=== PATIENT | male | born 1955 | race Caucasian/White ===

== ENCOUNTER → 2021-02-04 | Outpatient (CLI) | payer MEDICARE ==
--- NOTE | 2021-02-07 06:14 | PE ---
EXAMINATION TYPE: PET CT fusion skull to thigh DATE OF EXAM: 02/04/2021 COMPARISON: NONE HISTORY: Left lung mass. TECHNIQUE: Following the intravenous administration of 10.02 mCi of F-18 FDG, whole body images are performed from the skull base to the midthigh. Images are reviewed on the computer in the coronal, a xial, and sagittal planes. Reconstructed rotating images are created on independent workstation and reviewed on the computer. A localization and attenuation correction CT is performed in conjunction with the PET scan. Blood glucose level equals 90. SCAN: Initial Scan FINDINGS: SKULL BASE AND NECK: No areas of abnormal hypermetabolic uptake. CHEST, MEDIASTINUM, AND HILAR REGION: There is background fairly moderate underlying emphysematous ch be. Corresponding to patient history there is lateral left mid lung hypermetabolic mass measuring 4 .8 x 3.4 cm, max SUV is 13.05 on axial image 105. There is suspicious slightly hypermetabolic just under 1 cm prevascular lymph node axial image 99, ma x SUV is 4.36. There is suspicious slightly hypermetabolic 2.3 x 1.0 cm AP window lymph node axial image 95, max SUV is 3.69. ABDOMEN AND PELVIS: No additional areas of abnormal hypermetabolic uptake. No adrenal masses. Normal excretion. OSSEOUS STRUCTURES: No areas of abnormal hypermetabolic uptake. OTHER CT: Cardiomegaly is present with fairly severe coronary artery calcification. Small to moderate size hiatal hernia containing fat and portion of stomach along with prominent but subcentimeter amet abolic lymph node. Liver is diffusely low-density consistent with fatty infiltration. Occasional calcifications scattere d throughout the spleen consistent with product of old granulomatous disease. Moderate calcified plaq ue of abdominal aorta extends into branch vessels. Sigmoid colonic diverticulosis. Small fat-containi ng inguinal hernias bilaterally. Wptz-ud-[id number] disc space narrowing with vacuum disc phenomenon L5 -S1 level. IMPRESSION: Abnormal hypermetabolic uptake consistent with malignancy in the lateral 4.8 cm left mid lung mass. Suspicious prevascular and AP window lymph node noted. No distal metastatic disease.
== END | disposition home or self-care (01) ==
LOC: RADPETMAIN 13:54
PROVIDERS: ATTEND Internal Medicine Critical Care Medicine
DX: R91.8 Other nonspecific abnormal finding of lung field (principal)
CPT/HCPCS: 78815; A9552

== ENCOUNTER 2021-03-04 10:53 | Observation (INO) | payer MEDICARE ==
[2021-02-28 15:46] VITALS: BMI 32.6
[~2021-03-04 10:53] MED LIST: ALBUTEROL NEB (CONC) 2.5 MG/0.5 ML INHALATION ONE; ATROPINE SULFATE 0.4 MG/ML 1 ML VIAL IM ONE; LIDOCAINE 2% (PF) 20 MG/ML 5 ML VIAL INHALATION ONE; LIDOCAINE VISCOUS 300 MG/15 ML CUP MUCOUS MEM ONE
[2021-03-04 12:26] LABS: Glucose,Whole Blood 113 mg/dL (75-99)
[2021-03-04] MEDS: SODIUM CHLORIDE 0.9% 1,000 ML IV SCH ×4 (12:26→23:15)
--- NOTE | 2021-03-04 13:18 | CT ---
EXAMINATION TYPE: CT Chest asad Salinas Protocol DATE OF EXAM: 03/04/2021 COMPARISON: Head CT 10/07/2020 HISTORY: bronchial navigation CT DLP: 651 mGycm Automated exposure control for dose reduction was used. FINDINGS: Limited exam performed earlier navigational bronchoscopy. Previously described mediastinal lymph node measuring a short axis of 1 cm stable. Large left upper l obe lung mass measuring 4.8 x 3.4 cm stable. Additional small lymph nodes in the mediastinum. 1.7 cm left suprahilar lymph node suspected. There is diffuse emphysematous changes. Coarsened interstitial markings at the lung bases suggest a d egree of chronic interstitial lung disease. 1 mm subpleural nodule left lower lobe axial image 54 2 s maller characterize. There is a small hiatal hernia. Hypertrophic and degenerative changes of the spine. Coronary artery c alcifications noted. Atherosclerotic change aorta. IMPRESSION: LARGE LEFT UPPER LOBE LUNG MASS WITH BACKGROUND OF DIFFUSE COPD. MEDIASTINAL ADENOPATHY SIMILAR TO RE CENT PET SCAN.
[2021-03-04] MEDS ORDERED: LABETALOL 5 MG/ML VIAL MDV ONE (13:37)
[2021-03-04] MEDS ORDERED: SUCCINYLCHOLINE CHLORIDE 100 MG/5 ML SYR IV ONE (13:37)
[2021-03-04] MEDS ORDERED: ESMOLOL 100 MG/10 ML VIAL ONE (13:37)
[2021-03-04] MEDS ORDERED: METOPROLOL TARTRATE 5 MG/5 ML VIAL IVP ONE (13:37)
[2021-03-04] MEDS ORDERED: PROPOFOL 10 MG/ML 20 ML VIAL IV ONE (13:37)
[2021-03-04] MEDS ORDERED: SODIUM CHLORIDE 0.9% 500 ML 500 ML IV ONE (14:53)
[2021-03-04] MEDS ORDERED: SODIUM CHLORIDE 0.9% 1,000 ML IV ONE (15:20)
[2021-03-04] MEDS ORDERED: ONDANSETRON 4 MG/2 ML VIAL IVP ONE (15:45)
--- NOTE | 2021-03-04 15:50 | XR ---
EXAMINATION TYPE: XR chest 1V portable DATE OF EXAM: 03/04/2021 COMPARISON: CT chest same date HISTORY: Post left upper lobe biopsy TECHNIQUE: Single frontal view of the chest is obtained. FINDINGS: There is an mass at the left lower lobe with surrounding peritumoral change/hemorrhage fro m recent biopsy. No definite pneumothorax is seen. Mild atelectasis or pneumonitis at the right middl e lobe. No pleural effusion or pneumothorax on the right side. Heart Size is within normal limits. Ov erlying leads. IMPRESSION: 1. Recently biopsied mass at the lingula with surrounding postbiopsy changes suggestive of mild hemor rhage. No definite pneumothorax. 2. Mild atelectasis or pneumonitis at the right middle lobe.
[2021-03-04] MEDS ORDERED: SOTALOL 80 MG TAB PO STA (16:10)
--- NOTE | 2021-03-04 17:42 | PCN ---
PROCEDURE NOTE PULMONARY/CRITICAL CARE PROCEDURE NOTE: PROCEDURE PERFORMED: Electromagnetic navigational bronchoscopy. PREOP DIAGNOSIS: Left upper lobe mass. POSTOP DIAGNOSIS: Left upper lobe mass. OPERATORS: Dr. Park and Dr. Salinas. There was informed consent and universal timeout. ANESTHESIA: Provided general anesthesia. The planning CT scan was studied. Shanita Muniz, the [employer] sales representative was here during the procedure. PROCEDURE DETAILS: After the patient was adequately sedated and anesthetized, the bronchoscope was inserted through the endobronchial tube. There was topicalization of the airways. The right lung was evaluated first. Right upper lobe and its 3 segments, right middle lobe and its 2 segments, right lower lobe and its 5 segments all appeared relatively normal although there was a small mucosal lesion in the area right before the entrance of the right lower lobe that seemed suspicious and was somewhat vascular. We brushed this area. Next, the left side was evaluated. The left upper lobe and its 2 segments, the lingula and its 2 segments and the left lower lobe and its 4 segments were all found to be relatively normal. Next, we used the navigational bronchoscope to do some transbronchial biopsies in the area of the right upper lobe. We had reasonable localization. We did about 6 to 8 biopsies. Next, we used the needle to sample the same area. We got at least 1 sample from that area. Finally, we did BAL in that area. The patient tolerated the procedure well. There was minimal bleeding. After the procedure, the patient developed tachycardia. Anesthesia was treating the patient with esmolol and Dr. Venegas the anesthesiologist was actually called in to evaluate the patient. I did speak to the patient's family and did mention to them that it was difficult getting adequate localization on the lesion. The patient tolerated the procedure well until the very at which time he developed tachycardia. They may likely watch him over in Phase 1. Additional recommendations and suggestions are forthcoming. Follow up in my office probably in a week to 10 days or so. MMODL / VIDHIN: [id number] / MTDD
[2021-03-04 18:07] LABS: Glucose,Whole Blood 153 mg/dL (75-99)
[2021-03-04] MEDS ORDERED: DILTIAZEM DRIP BOLUS FROM BAG 1 MG SOLN IV ONE (18:37)
[2021-03-04] MEDS ORDERED: NALOXONE 0.4 MG/ML 1 ML VIAL IV PRN (18:44)
[2021-03-04] MEDS ORDERED: DILTIAZEM 125 MG in SODIUM CHLORIDE 0.9% 100 ML IV SCH (18:45)
[2021-03-04] MEDS ORDERED: ACETAMINOPHEN TAB 325 MG TAB PO PRN (18:46)
[2021-03-04] MEDS ORDERED: ONDANSETRON 4 MG/2 ML VIAL IVP PRN (18:46)
[2021-03-04] MEDS ORDERED: NICOTINE POLACRILEX 2 MG GUM BUCCAL PRN (18:46)
--- NOTE | 2021-03-04 18:49 | P.HPIM ---
History of Present Illness H&P Date: 03/04/21 Past Medical History Past Medical History: Atrial Fibrillation, COPD, Diabetes Mellitus, Hypertension Additional Past Medical History / Comment(s): spot on rt lung,low sodium,having stress test on 03-01-21 History of Any Multi-Drug Resistant Organisms: None Reported Past Surgical History: Hernia Repair Additional Past Surgical History / Comment(s): hernia x2,fatty tumor removed abdomen, cardiac stent X 2, Past Anesthesia/Blood Transfusion Reactions: No Reported Reaction Smoking Status: Current every day smoker (1/2 ppd) Past Alcohol Use History: Daily (2 beers daily ) Additional History: no cane or walker at home. no oxygen - Past Family History Mother Family Medical History: Cancer Sister(s) Family Medical History: Cancer Medications and Allergies Home Medications Medication Instructions Recorded Confirmed Type Apixaban [Eliquis] 5 mg PO BID 02/28/21 02/28/21 History Clopidogrel [Plavix] 75 mg PO DAILY 02/28/21 03/04/21 History Evolocumab [Repatha Syringe] 140 mg SQ Q14D 02/28/21 02/28/21 History Famotidine 20 mg PO DAILY 02/28/21 02/28/21 History Furosemide [Lasix] 40 mg PO DAILY 02/28/21 02/28/21 History Losartan Potassium [Cozaar] 100 mg PO QAM 02/28/21 02/28/21 History Potassium Chloride [Klor-Con 20] 20 meq PO DAILY 02/28/21 02/28/21 History Rosuvastatin Calcium 40 mg PO DAILY 02/28/21 02/28/21 History Sotalol HCl [Sotalol AF] 80 mg PO BID 02/28/21 02/28/21 History glipiZIDE XL [Glucotrol Xl] 10 mg PO DAILY 02/28/21 02/28/21 History hydrALAZINE HCL [Apresoline] 100 mg PO BID 02/28/21 02/28/21 History Allergies Allergy/AdvReac Type Severity Reaction Status Date / Time No Known Allergies Allergy Verified 02/28/21 15:27 Physical Exam Osteopathic Statement: *. No significant issues noted on an osteopathic structural exam other than those noted in the History and Physical/Consult. Vitals: Vital Signs Temp Pulse Pulse Resp BP Pulse Ox 03/04/21 18:25 147 H 17 138/86 95 03/04/21 18:00 158 H 17 154/84 96 03/04/21 17:51 151 H 17 120/88 89 L 03/04/21 17:31 138 H 18 133/93 95 03/04/21 17:17 126 H 18 145/89 95 03/04/21 17:02 128 H 18 131/79 95 03/04/21 16:32 127 H 20 146/71 94 L 03/04/21 16:15 139 H 20 151/78 94 L 03/04/21 16:02 139 H 20 139/86 92 L 03/04/21 15:46 133 H 20 121/72 92 L 03/04/21 15:32 119 H 20 147/73 92 L 03/04/21 15:17 120 H 20 143/63 94 L 03/04/21 15:06 98 F 120 H 20 140/66 94 L 03/04/21 12:03 98.6 F 65 16 185/86 97 Intake and Output 03/04/21 03/04/21 03/04/21 06:59 14:59 22:59 Intake Total 300 75 Output Total 200 Balance 300 -125 Intake: IV 300 75 Output: Urine 200 Other: Weight 91.5 kg Results Labs: Abnormal Lab Results - Last 24 Hours (Table) 03/04/21 03/04/21 Range/Units 12:24 17:56 POC Glucose (mg/dL) 113 H 153 H (75-99) mg/dL
[2021-03-04] MEDS ORDERED: ALBUTEROL NEBULIZED 2.5 MG/3 ML INHALATION PRN (18:52)
[2021-03-04] MEDS ORDERED: MELATONIN 5 MG TABLET PO PRN (18:57)
[2021-03-04] MEDS ORDERED: HYDROcodone/APAP 5-325MG 1 EACH TAB PO PRN (18:57)
[2021-03-04 20:00] LABS: ALT 19 U/L (4-49); AST 35 U/L (17-59); African American GFR (CKD) >90 (>60 ml/min/1.73 sqM); Albumin 3.6 g/dL (3.5-5.0); Alkaline Phosphatase 106 U/L (38-126); Anion Gap 9 mmol/L; Blood Urea Nitrogen 10 mg/dL (9-20); Carbon Dioxide 20 mmol/L (22-30); Chloride 104 mmol/L (98-107); Glucose 180 mg/dL (74-99); Magnesium 1.6 mg/dL (1.6-2.3); Non-African American GFR(CKD) >90 (>60 ml/min/1.73 sqM); Phosphorus 3.2 mg/dL (2.5-4.5); Sodium 133 mmol/L (137-145); Total Bilirubin 0.8 mg/dL (0.2-1.3); Total Protein 6.4 g/dL (6.3-8.2)
[2021-03-04 20:04] LABS: Potassium 5.2 mmol/L (3.5-5.1)
[2021-03-04 20:18] LABS: Basophils # (A) 0.1 k/uL (0-0.2); Basophils % (A) 0 %; Eosinophils # (A) 0.1 k/uL (0-0.7); Eosinophils % (A) 1 %; HGB 16.2 gm/dL (13.0-17.5); Lymphocytes # (A) 1.5 k/uL (1.0-4.8); Lymphocytes % (A) 9 %; MCH 31.9 pg (25.0-35.0); MCHC 33.8 g/dL (31.0-37.0); MCV 94.3 fL (80.0-100.0); Mean Platelet Volume 6.7; Monocytes # (A) 0.9 k/uL (0-1.0); Monocytes % (A) 6 %; Neutrophils # (A) 12.9 k/uL (1.3-7.7); Neutrophils % (A) 83 %; Platelet Count 249 k/uL (150-450); RDW 12.5 % (11.5-15.5); WBC 15.5 k/uL (3.8-10.6)
--- NOTE | 2021-03-04 20:18 | P.HPIM ---
History of Present Illness H&P Date: 03/04/21 Chief Complaint: a fib with RVR Patient is a 65 yo CM wtih a hx of COPD, ongoing tobacco abuse, CHF, CAD with hx of 2 stent and A fib anticoagulated with eliquis who presetend for outpatinet navagational bronch due to left lower lobe mass. During the procedure he went into A fib with RVR and was given labetalol, esmolol, and lopressor by anesthesia. He contiued to have A fib wtih HR 130-150s and we were asked by Dr. Park to admit the patient. Patient seen and examined at bedside. He states that he has had A fib for the last 4 years, well controlled he follows with [facility]. He did not take his sotalol this morning preoperatively. He is having a cough which is worsened post bronch, horse voice which is new, and mildly worsening of his shortness of breath after his bronch. He denies chest pain, palpitations, nausea, dizziness. Pertinent positives and negatives as discussed in HPI, a complete review of systems was performed and all other systems are negative. General: non toxic, no distress, appears at stated age Derm: warm, dry Head: atraumatic, normocephalic, symmetric Eyes: EOMI, no lid lag, anicteric sclera, pupils equal round reactive to light ENT: Nose and ears atraumatic, no thrush, no pharyngeal erythema Neck: No thyromegaly, no cervical lymphadenopathy, trachea midline, supple Mouth: no lip lesion, mucus membranes moist, hoarse voice Cardiovascular: S1S2 tachy, no murmur, positive posterior tibial pulse bilateral , no edema, capillary refill less than 2 seconds Lungs: course bs bilateral without wheeze, no ronchi, no rales, no wheeze, no accessory muscle use Abdominal: soft, nontender to palpation, no guarding, no appreciable organomegaly, normal bowel sounds Ext: no gross muscle atrophy, muscle strength muscle strength 5 out of 5 in all 4 extremities, no contractures Neuro: CN II-XI grossly intact, light touch intact all 4 extremities, finger to nose within normal limits, Psych: Alert, oriented, appropriate affect A fib wtih RVR - cardizem 5 mg IVP and then gtt - tele - stat CBC, BMP, mg - consult cardio - on eliquis at home Left lung mass s/p bronch with biopsy with possible hemorhage - anticipate typical expectation - consult pulm regarding clearance to resume eliquis CHF, compensated, unknown type - cozaar, lasix - follow strict I and O COPD without exacerbation with ongoing tobacco absue - prn bornchodilators - smoking cessation encouraged - nicotine gum DM 2 on orals - hold orals - follow BS - SSI The patient is placed in observation with an anticipated less than 2 midnight stay for evaluation of A fib with RVR. Surrogate decision-maker: Tahir CODE STATUS:full DVT prophylaxis: scds Discussed with: patient, nursing Anticipated discharge date: in AM Anticipated discharge place: home A total of 55 minutes was spent on the care of this complex patient more than 50% of the time was spent in counseling and care coordination. Past Medical History Past Medical History: Atrial Fibrillation, COPD, Diabetes Mellitus, Hypertension Additional Past Medical History / Comment(s): spot on rt lung,low sodium,having stress test on 03-01-21 History of Any Multi-Drug Resistant Organisms: None Reported Past Surgical History: Hernia Repair Additional Past Surgical History / Comment(s): hernia x2,fatty tumor removed abdomen, cardiac stent X 2, Past Anesthesia/Blood Transfusion Reactions: No Reported Reaction Smoking Status: Current every day smoker (1/2 ppd) Past Alcohol Use History: Daily (2 beers daily ) - Past Family History Mother Family Medical History: Cancer Sister(s) Family Medical History: Cancer Medications and Allergies Home Medications Medication Instructions Recorded Confirmed Type Apixaban [Eliquis] 5 mg PO BID 02/28/21 02/28/21 History Clopidogrel [Plavix] 75 mg PO DAILY 02/28/21 03/04/21 History Evolocumab [Repatha Syringe] 140 mg SQ Q14D 02/28/21 02/28/21 History Famotidine 20 mg PO DAILY 02/28/21 02/28/21 History Furosemide [Lasix] 40 mg PO DAILY 02/28/21 02/28/21 History Losartan Potassium [Cozaar] 100 mg PO QAM 02/28/21 02/28/21 History Potassium Chloride [Klor-Con 20] 20 meq PO DAILY 02/28/21 02/28/21 History Rosuvastatin Calcium 40 mg PO DAILY 02/28/21 02/28/21 History Sotalol HCl [Sotalol AF] 80 mg PO BID 02/28/21 02/28/21 History glipiZIDE XL [Glucotrol Xl] 10 mg PO DAILY 02/28/21 02/28/21 History hydrALAZINE HCL [Apresoline] 100 mg PO BID 02/28/21 02/28/21 History Allergies Allergy/AdvReac Type Severity Reaction Status Date / Time No Known Allergies Allergy Verified 02/28/21 15:27 Physical Exam Osteopathic Statement: *. No significant issues noted on an osteopathic struct ural exam other than those noted in the History and Physical/Consult. Vitals: Vital Signs Temp Pulse Pulse Resp BP Pulse Ox 03/04/21 18:55 142 H 17 144/95 95 03/04/21 18:25 147 H 17 138/86 95 03/04/21 18:00 158 H 17 154/84 96 03/04/21 17:51 151 H 17 120/88 89 L 03/04/21 17:31 138 H 18 133/93 95 03/04/21 17:17 126 H 18 145/89 95 03/04/21 17:02 128 H 18 131/79 95 03/04/21 16:32 127 H 20 146/71 94 L 03/04/21 16:15 139 H 20 151/78 94 L 03/04/21 16:02 139 H 20 139/86 92 L 03/04/21 15:46 133 H 20 121/72 92 L 03/04/21 15:32 119 H 20 147/73 92 L 03/04/21 15:17 120 H 20 143/63 94 L 03/04/21 15:06 98 F 120 H 20 140/66 94 L 03/04/21 12:03 98.6 F 65 16 185/86 97 Intake and Output 03/04/21 03/04/21 03/04/21 06:59 14:59 22:59 Intake Total 300 75 Output Total 200 Balance 300 -125 Intake: IV 300 75 Output: Urine 200 Other: Weight 91.5 kg Results Labs: Abnormal Lab Results - Last 24 Hours (Table) 03/04/21 03/04/21 Range/Units 12:24 17:56 POC Glucose (mg/dL) 113 H 153 H (75-99) mg/dL
[2021-03-04 20:33] LABS: Glucose,Whole Blood 159 mg/dL (75-99)
[2021-03-04] MEDS: BENZOCAINE/MENTHOL LOZENG 1 EACH LOZENGE MUCOUS MEM PRN (20:39)
[2021-03-04] MEDS: hydrALAZINE HCL 50 MG TAB PO SCH (20:40)
[2021-03-04] MEDS: INSULIN ASPART (NovoLOG) 100 UNIT/ML VIAL SQ SCH (20:42)
[2021-03-04] MEDS: DILTIAZEM 125 MG in SODIUM CHLORIDE 0.9% 100 ML IV SCH (21:11)
[2021-03-05] MEDS: SOTALOL 80 MG TAB PO SCH ×3 (00:28→20:24)
[2021-03-05] MEDS: SODIUM CHLORIDE 0.9% 1,000 ML IV SCH ×4 (04:15→20:25)
[2021-03-05 06:27] LABS: Glucose,Whole Blood 154 mg/dL (75-99)
[2021-03-05] MEDS: INSULIN ASPART (NovoLOG) 100 UNIT/ML VIAL SQ SCH ×4 (06:34→20:24)
[2021-03-05] MEDS: BENZOCAINE/MENTHOL LOZENG 1 EACH LOZENGE MUCOUS MEM PRN ×4 (06:43→23:16)
[2021-03-05 07:39] LABS: HCT 42.4 % (39.0-53.0); HGB 14.6 gm/dL (13.0-17.5); MCH 32.1 pg (25.0-35.0); MCHC 34.5 g/dL (31.0-37.0); Mean Platelet Volume 6.8; Platelet Count 242 k/uL (150-450); RBC 4.56 m/uL (4.30-5.90); RDW 12.5 % (11.5-15.5); WBC 11.3 k/uL (3.8-10.6)
[2021-03-05 07:53] LABS: African American GFR (CKD) >90 (>60 ml/min/1.73 sqM); Anion Gap 5 mmol/L; Blood Urea Nitrogen 8 mg/dL (9-20); Calcium 8.7 mg/dL (8.4-10.2); Carbon Dioxide 24 mmol/L (22-30); Chloride 105 mmol/L (98-107); Glucose 156 mg/dL (74-99); Non-African American GFR(CKD) >90 (>60 ml/min/1.73 sqM); Potassium 4.7 mmol/L (3.5-5.1); Sodium 134 mmol/L (137-145)
[2021-03-05] MEDS ORDERED: POTASSIUM CHLORIDE ER 20 MEQ TAB.ER PO SCH (09:00)
[2021-03-05] MEDS: APIXABAN 5 MG TAB PO SCH ×2 (09:55→20:24)
[2021-03-05] MEDS: ATORVASTATIN 80 MG TAB PO SCH (09:55)
[2021-03-05] MEDS: FAMOTIDINE 20 MG TAB PO SCH (09:56)
[2021-03-05] MEDS: FUROSEMIDE 40 MG TAB PO SCH (09:56)
[2021-03-05] MEDS: LOSARTAN 50 MG TAB PO SCH (09:56)
[2021-03-05] MEDS: hydrALAZINE HCL 50 MG TAB PO SCH ×2 (09:56→20:24)
[2021-03-05] MEDS: DILTIAZEM 125 MG in SODIUM CHLORIDE 0.9% 100 ML IV SCH (10:22)
--- NOTE | 2021-03-05 10:59 | P.CNPUL ---
History of Present Illness Consult date: 03/05/21 Requesting physician: Lexy Ruiz Reason for consult: abnormal CXR/CT Chief complaint: Rapid heart rate History of present illness: This is a very pleasant 65-year-old gentleman who follows with Dr. Carnes as his primary care provider. He has a history of atrial fibrillation anticoagulated w man Eliquis, coronary disease with previous stent placement, diabetes berg, congestive heart failure, history of alcoholism, chronic obstructive pulmonary disease, chronic and ongoing tobacco dependence of at least 1 pack per day for 50 years. He had initially been in [facility] with chest pain and palpitations. He was found to be in atrial fibrillation with a rapid ventricular response at that time. He was scheduled to undergo ablation that same week. However his chest x-ray had revealed a mass in the left upper lung suspicious for cancer. He was seen in our office and subsequently set up for navigational bronchoscopy which was performed electively here yesterday. Just at the end of the procedure the patient did develop atrial fibrillation with rapid ventricular response requiring beta blockers and subsequent Cardizem drip currently at 10 mg per hour. He was admitted for the same. He is seen today in follow-up on the selective care unit. He is awake and alert in no acute distress. Maintaining O2 saturations in the 90s on room air. He remains in atrial fibrillation however his heart rate is presently controlled in the 60s and 70s. No chest pain. No palpitations lightheadedness or dizziness. No worsening shortness of breath cough or congestion. No hemoptysis. He did have a stress test earlier this week at an outside facility that was reported as nega tive for acute ischemia. Chest x-ray reveals in the left lung lingular area some mild hemorrhage noted around biopsy sites. No pneumothorax. Mild atelectasis in the right lung. Bronchial cultures pending. Pathology pending. White count 11.3. Hemoglobin 14.6. Sodium 134. Potassium 4.7. Creatinine 0.69. Troponin 0.014. 0.031. Currently on a Cardizem drip at 5 mg per hour. Remains on Eliquis. Resumed on sotalol. Review of Systems REVIEW OF SYSTEMS: CONSTITUTIONAL: Denies any recent significant weight loss or weight gain. EYES: Denies change in vision. EARS, NOSE, MOUTH, THROAT: Denies headaches, denies sore throat. CARDIOVASCULAR: Denies chest pain, palpitations or syncopal episodes. RESPIRATORY: Denies shortness of breath, cough, congestion or hemoptysis. GASTROINTESTINAL: Denies change in appetite, denies abdominal pain GENITOURINARY: Denies hematuria, denies infections. MUSKULOSKELETAL: Denies pain, denies swelling. INTEGUMENTARY: Denies rash, denies eczema. NEUROLOGICAL: Denies recent memory loss, no recent seizure activity. PSYCHIATRIC: Denies anxiety, denies depression. HEMATOLOGIC/LYMPHATIC: Denies anemia, denies enlarged lymph nodes. Past Medical History Past Medical History: Atrial Fibrillation, COPD, Diabetes Mellitus, Hypertension Additional Past Medical History / Comment(s): Spot on right lung, stress test scheduled for 03-01-21 History of Any Multi-Drug Resistant Organisms: None Reported Past Surgical History: Hernia Repair Additional Past Surgical History / Comment(s): hernia x2,fatty tumor removed abdomen, cardiac stent X 2, Past Anesthesia/Blood Transfusion Reactions: No Reported Reaction Past Psychological History: No Psychological Hx Reported Smoking Status: Current every day smoker Past Alcohol Use History: Daily Additional Past Alcohol Use History / Comment(s): started smoking at age 16, approx. 1ppd Past Drug Use History: None Reported - Past Family History Mother Family Medical History: Cancer Sister(s) Family Medical History: Cancer Medications and Allergies Home Medications Medication Instructions Recorded Confirmed Type Apixaban [Eliquis] 5 mg PO BID 02/28/21 02/28/21 History Clopidogrel [Plavix] 75 mg PO DAILY 02/28/21 03/04/21 History Evolocumab [Repatha Syringe] 140 mg SQ Q14D 02/28/21 02/28/21 History Famotidine 20 mg PO DAILY 02/28/21 02/28/21 History Furosemide [Lasix] 40 mg PO DAILY 02/28/21 02/28/21 History Losartan Potassium [Cozaar] 100 mg PO QAM 02/28/21 02/28/21 History Potassium Chloride [Klor-Con 20] 20 meq PO DAILY 02/28/21 02/28/21 History Rosuvastatin Calcium 40 mg PO DAILY 02/28/21 02/28/21 History Sotalol HCl [Sotalol AF] 80 mg PO BID 02/28/21 02/28/21 History glipiZIDE XL [Glucotrol Xl] 10 mg PO DAILY 02/28/21 02/28/21 History hydrALAZINE HCL [Apresoline] 100 mg PO BID 02/28/21 02/28/21 History Allergies Allergy/AdvReac Type Severity Reaction Status Date / Time No Known Allergies Allergy Verified 02/28/21 15:27 Physical Exam Vitals: Vital Signs Temp Pulse Pulse Pulse Resp BP Pulse Ox 03/05/21 09:23 95 03/05/21 08:00 97.6 F 111 H 19 111/65 95 03/05/21 04:00 98.4 F 73 16 112/59 96 03/05/21 00:00 98.4 F 84 16 112/55 98 03/04/21 20:00 98.5 F 124 H 16 140/88 97 03/04/21 18:55 142 H 17 144/95 95 03/04/21 18:25 147 H 17 138/86 95 03/04/21 18:00 158 H 17 154/84 96 03/04/21 17:51 151 H 17 120/88 89 L 03/04/21 17:31 138 H 18 133/93 95 03/04/21 17:17 126 H 18 145/89 95 03/04/21 17:02 128 H 18 131/79 95 03/04/21 16:32 127 H 20 146/71 94 L 03/04/21 16:15 139 H 20 151/78 94 L 03/04/21 16:02 139 H 20 139/86 92 L 03/04/21 15:46 133 H 20 121/72 92 L 03/04/21 15:32 119 H 20 147/73 92 L 03/04/21 15:17 120 H 20 143/63 94 L 03/04/21 15:06 98 F 120 H 20 140/66 94 L 03/04/21 12:03 98.6 F 65 16 185/86 97 Intake and Output 03/04/21 03/05/21 03/05/21 22:59 06:59 14:59 Intake Total 75 365 Output Total 200 1160 Balance -125 -1160 365 Intake: IV 75 Intake, IV Titration 125 Amount Diltiazem 125 mg In 125 Sodium Chloride 0.9% 100 ml @ 10 MG/HR 10 mls/hr IV .[id number] [facility] Rx#: [id number] Oral 240 Output: Urine 200 1160 Other: Voiding Method Urinal Urinal Urinal # Voids 1 1 Weight 92 kg 92 kg GENERAL EXAM: Alert,very pleasant 65-year-old gentleman, on room air, comfortable in no apparent distress. HEAD: Normocephalic. EYES: Normal reaction of pupils, equal size. NOSE: Clear with pink turbinates. THROAT: No erythema or exudates. NECK: No masses, no JVD. CHEST: No chest wall deformity. LUNGS: Equal air entry with no crackles, wheeze, rhonchi or dullness. CVS: S1 and S2 normal with no audible murmur, irregular rhythm. ABDOMEN: No hepatosplenomegaly, normal bowel sounds, no guarding or rigidity. SPINE: No scoliosis or deformity SKIN: No rashes CENTRAL NERVOUS SYSTEM: No focal deficits, tone is normal in all 4 extremities. EXTREMITIES: There is no peripheral edema. No clubbing, no cyanosis. Peripheral pulses are intact. Results - Laboratory Findings CBC and BMP: 03/05/21 06:30 03/05/21 06:30 Abnormal lab findings: Abnormal Labs 03/04/21 03/04/21 03/04/21 12:24 17:56 19:07 WBC 15.5 H Neutrophils # 12.9 H Sodium Potassium Carbon Dioxide BUN Glucose POC Glucose (mg/dL) 113 H 153 H 03/04/21 03/04/21 03/05/21 19:07 20:32 06:21 WBC Neutrophils # Sodium 133 L Potassium 5.2 H Carbon Dioxide 20 L BUN Glucose 180 H POC Glucose (mg/dL) 159 H 154 H 03/05/21 03/05/21 06:30 06:30 WBC 11.3 H Neutrophils # Sodium 134 L Potassium Carbon Dioxide BUN 8 L Glucose 156 H POC Glucose (mg/dL) - Diagnostic Findings Chest x-ray: image reviewed Assessment and Plan Assessment: 1 Atrial fibrillation with a rapid ventricular response currently on a Cardizem drip 2 History of atrial fibrillation, anticoagulated with Eliquis, maintained on sotalol. Being worked up for possible ablation in the outpatient setting 3 Left lung mass suspicious for neoplasm status post bronchoscopy with biopsies on 03/04/2021 4 History of coronary artery disease with previous stent placements. Recent stress testing at outside facility revealed negative for ischemia 5 History of congestive heart failure 6 Chronic and ongoing tobacco dependence 7 Chronic obstructive pulmonary disease 8 History of alcohol abuse 9 Diabetes mellitus Plan: The patient was seen and evaluated by Dr. Park Chest x-ray and labs reviewed Stable from the pulmonary standpoint Pathology pending Home once cleared by cardiology Keep scheduled appointment with his billet driller on 03/10/2021 Follow-up in our office in 1 week I, the cosigning physician, performed a history & physical examination of the patient. Lungs sounds crackles in the left lung base Maintaining good O2 saturations in the 90s on room air. I discussed the assessment and plan of care with my nurse practitioner, Viola Salinas. I attest to the above consultation as dictated by her. Time with Patient: Greater than 30
[2021-03-05 11:33] LABS: Glucose,Whole Blood 170 mg/dL (75-99)
--- NOTE | 2021-03-05 12:06 | P.CRDCN ---
History of Present Illness Consult date: 03/05/21 Consult reason: atrial fibrillation History of present illness: The patient is a 65-year-old male with extensive past medical history, who recently had an episode of atrial fibrillation with RVR after undergoing bronchoscopy. The patient had a bronchoscopy with biopsy performed by Dr. Valenzuela. During recovery the patient went into atrial fibrillation with RVR with heart rates in the 150s to 160s. He became hypotensive and did not convert with IV beta grace. He was subsequently admitted to the floor on a Cardizem drip for further monitoring. The patient was interviewed and examined sitting comfortably on the side of his bed. The patient states he did not take his sotalol the morning of his procedure as it often makes him nauseous if he takes it without food. He states his sotalol was prescribed by a yeast tender in [place], however he recently started seeing Dr. Dash at [facility]. He states he recently underwent stress testing in order to be cleared for his bronchoscopy. To his knowledge it was unremarkable. He states he is feeling well currently in his room. No chest pain or chest pressure. No palpitations, dizziness, or lightheadedness. He has been ambulating to and from the bathroom. DIAGNOSTICS: Chest x-ray shows mild hemorrhage around biopsied site. No mass noted in the left lower lobe. Mild atelectasis in the right middle lobe EKG shows A. fib with RVR Telemetry overnight shows atrial fibrillation with heart rates in the mid 90s Vital signs: Blood pressure 111/65, heart rate 111, respiratory rate 19, temperature 97.6F, SpO2 95% on room air PAST MEDICAL HISTORY: Diabetes mellitus, hypertension, paroxysmal atrial fibrillation, dyslipidemia, coronary artery disease, current smoker, COPD REVIEW OF SYSTEMS: No fever or chills. No cough or expectoration. No diaphoresis. Patient denies headache, dizziness, blurred vision, double vision. Patient denies any stomach discomfort. No nausea, vomiting. No hematochezia. No hematemesis. Denies any black stools or blood in his stools. Denies dysuria or hematuria. No muscle weakness or numbness. Negative for shortness of breath. Negative for chest pain. Negative for palpitations PHYSICAL EXAMINATION: This is a 65-year-old male in no apparent distress at the time of my examination. HEENT: Head is atraumatic, normocephalic. Pupils are equal, round. Sclerae anicteric. Conjunctivae are clear. Mucous membranes of the mouth are moist. Neck is supple. There is no jugular venous distention. No carotid bruit is heard. CHEST EXAMINATION: Lungs are diminished to auscultation. No chest wall tenderness is noted on palpation or with deep breathing. HEART EXAMINATION: Irregular rate and rhythm. S1, S2 heard. No murmurs, gallops or rub. ABDOMEN: Soft, nontender. Bowel sounds are heard. No organomegaly noted. EXTREMITIES: 2+ peripheral pulses with no evidence of peripheral edema and no calf tenderness noted. NEUROLOGIC EXAMINATION: Patient is awake, alert and oriented x3. FINAL ASSESSMENT AND PLAN: Paroxysmal atrial fibrillation, episode of RVR status post bronchoscopy, currently rate controlled on by mouth sotalol and IV Cardizem Lung mass, status post bronchoscopy History of coronary artery disease, on Plavix Hypertension, controlled on current regimen Dyslipidemia, on statin Current smoker PLAN: Wean off of Cardizem drip Consider additional beta grace if needed for rate control Recommend ambulation and monitor for episodes of RVR Resume Eliquis when cleared by pulmonology Further recommendations based upon clinical course The patient has been seen and evaluated. Plan of care has been reviewed and agr eed upon by Dr Ponce. Past Medical History Past Medical History: Atrial Fibrillation, COPD, Diabetes Mellitus, Hypertension Additional Past Medical History / Comment(s): Spot on right lung, stress test scheduled for 03-01-21 History of Any Multi-Drug Resistant Organisms: None Reported Past Surgical History: Hernia Repair Additional Past Surgical History / Comment(s): hernia x2,fatty tumor removed abdomen, cardiac stent X 2, Past Anesthesia/Blood Transfusion Reactions: No Reported Reaction Past Psychological History: No Psychological Hx Reported Smoking Status: Current every day smoker Past Alcohol Use History: Daily Additional Past Alcohol Use History / Comment(s): started smoking at age 16, approx. 1ppd Past Drug Use History: None Reported - Past Family History Mother Family Medical History: Cancer Sister(s) Family Medical History: Cancer Medications and Allergies Home Medications Medication Instructions Recorded Confirmed Type Apixaban [Eliquis] 5 mg PO BID 02/28/21 02/28/21 History Clopidogrel [Plavix] 75 mg PO DAILY 02/28/21 03/04/21 History Evolocumab [Repatha Syringe] 140 mg SQ Q14D 02/28/21 02/28/21 History Famotidine 20 mg PO DAILY 02/28/21 02/28/21 History Furosemide [Lasix] 40 mg PO DAILY 02/28/21 02/28/21 History Losartan Potassium [Cozaar] 100 mg PO QAM 02/28/21 02/28/21 History Potassium Chloride [Klor-Con 20] 20 meq PO DAILY 02/28/21 02/28/21 History Rosuvastatin Calcium 40 mg PO DAILY 02/28/21 02/28/21 History Sotalol HCl [Sotalol AF] 80 mg PO BID 02/28/21 02/28/21 History glipiZIDE XL [Glucotrol Xl] 10 mg PO DAILY 02/28/21 02/28/21 History hydrALAZINE HCL [Apresoline] 100 mg PO BID 02/28/21 02/28/21 History Allergies Allergy/AdvReac Type Severity Reaction Status Date / Time No Known Allergies Allergy Verified 02/28/21 15:27 Physical Exam Vitals: Vital Signs Temp Pulse Pulse Pulse Resp BP Pulse Ox 03/05/21 09:23 95 03/05/21 08:00 97.6 F 111 H 19 111/65 95 03/05/21 04:00 98.4 F 73 16 112/59 96 03/05/21 00:00 98.4 F 84 16 112/55 98 03/04/21 20:00 98.5 F 124 H 16 140/88 97 03/04/21 18:55 142 H 17 144/95 95 03/04/21 18:25 147 H 17 138/86 95 03/04/21 18:00 158 H 17 154/84 96 03/04/21 17:51 151 H 17 120/88 89 L 03/04/21 17:31 138 H 18 133/93 95 03/04/21 17:17 126 H 18 145/89 95 03/04/21 17:02 128 H 18 131/79 95 03/04/21 16:32 127 H 20 146/71 94 L 03/04/21 16:15 139 H 20 151/78 94 L 03/04/21 16:02 139 H 20 139/86 92 L 03/04/21 15:46 133 H 20 121/72 92 L 03/04/21 15:32 119 H 20 147/73 92 L 03/04/21 15:17 120 H 20 143/63 94 L 03/04/21 15:06 98 F 120 H 20 140/66 94 L 03/04/21 12:03 98.6 F 65 16 185/86 97 Intake and Output 03/04/21 03/05/21 03/05/21 22:59 06:59 14:59 Intake Total 75 365 Output Total 200 1160 Balance -125 -1160 365 Intake: IV 75 Intake, IV Titration 125 Amount Diltiazem 125 mg In 125 Sodium Chloride 0.9% 100 ml @ 10 MG/HR 10 mls/hr IV .[id number] [facility] Rx#: [id number] Oral 240 Output: Urine 200 1160 Other: Voiding Method Urinal Urinal Urinal # Voids 1 1 Weight 92 kg 92 kg Results 03/05/21 06:30 03/05/21 06:30 Cardiac Enzymes 03/04/21 03/04/21 03/04/21 Range/Units 19:07 19:07 21:59 AST 35 (17-59) U/L Troponin I <0.012 0.014 (0.000-0.034) ng/mL 03/05/21 Range/Units 00:44 AST (17-59) U/L Troponin I 0.031 (0.000-0.034) ng/mL CBC 03/04/21 03/05/21 Range/Units 19:07 06:30 WBC 15.5 H 11.3 H (3.8-10.6) k/uL RBC 5.10 4.56 (4.30-5.90) m/uL Hgb 16.2 14.6 (13.0-17.5) gm/dL Hct 48.0 42.4 (39.0-53.0) % Plt Count 249 242 (150-450) k/uL Comprehensive Metabolic Panel 03/04/21 03/05/21 Range/Units 19:07 06:30 Sodium 133 L 134 L (137-145) mmol/L Potassium 5.2 H 4.7 (3.5-5.1) mmol/L Chloride 104 105 (98-107) mmol/L Carbon Dioxide 20 L 24 (22-30) mmol/L BUN 10 8 L (9-20) mg/dL Creatinine 0.66 0.69 (0.66-1.25) mg/dL Glucose 180 H 156 H (74-99) mg/dL Calcium 9.0 8.7 (8.4-10.2) mg/dL AST 35 (17-59) U/L ALT 19 (4-49) U/L Alkaline Phosphatase 106 (38-126) U/L Total Protein 6.4 (6.3-8.2) g/dL Albumin 3.6 (3.5-5.0) g/dL Current Medications Generic Name Dose Route Start Last Admin Trade Name Freq PRN Reason Stop Dose Admin Acetaminophen 650 mg 03/04/21 18:46 Acetaminophen Tab 325 Mg Tab PO Q6HR PRN Mild Pain or Fever > 100.5 Hydrocodone Bitart/Acetaminophen 1 each 03/04/21 18:57 Hydrocodone/Apap 5-325mg 1 Each Tab PO Q6HR PRN Pain Albuterol Sulfate 2.5 mg 03/04/21 18:52 Albuterol Nebulized 2.5 Mg/3 Ml INHALATION RT-QID PRN Shortness Of Breath Or Wheezing Apixaban 5 mg 03/05/21 09:00 03/05/21 09:55 Apixaban 5 Mg Tab PO 5 mg BID [facility]AC[facility] Administration Protocol Atorvastatin Calcium 80 mg 03/05/21 09:00 03/05/21 09:55 Atorvastatin 80 Mg Tab PO 80 mg DAILY [facility] Administration Benzocaine/Menthol 1 each 03/04/21 18:54 03/05/21 11:51 Benzocaine/Menthol Lozeng 1 Each Lozenge MUCOUS MEM 1 each Q4HR PRN Administration Sore Throat Famotidine 20 mg 03/05/21 09:00 03/05/21 09:56 Famotidine 20 Mg Tab PO 20 mg DAILY [facility]I Administration Furosemide 40 mg 03/05/21 09:00 03/05/21 09:56 Furosemide 40 Mg Tab PO 40 mg DAILY [facility]ELI Administration Hydralazine HCl 100 mg 03/04/21 21:00 03/05/21 09:56 Hydralazine Hcl 50 Mg Tab PO 100 mg BID ARACELI Administration Sodium Chloride 1,000 mls @ 20 mls/hr 03/03/21 06:00 03/05/21 04:15 Saline 0.9% IV 04/02/21 06:01 Not Given .Q24H [facility] Sodium Chloride 1,000 mls @ 20 mls/hr 03/04/21 06:00 03/05/21 04:16 Saline 0.9% IV 04/03/21 06:01 Not Given .Q24H [facility] Sodium Chloride 1,000 mls @ 75 mls/hr 03/04/21 19:00 03/04/21 23:15 Saline 0.9% IV 75 mls/hr .[id number] [facility] Administration Diltiazem HCl 125 mg/ Sodium 125 mls @ 5 mls/hr 03/04/21 20:37 03/05/21 10:22 Chloride IV 5 mg/hr .Q24H [facility] 5 mls/hr Administration Protocol 5 MG/HR Insulin Aspart 0 unit 03/04/21 21:00 03/05/21 06:34 Insulin Aspart (Novolog) 100 Unit/Ml Vial SQ Not Given ACHS [facility] Protocol Losartan Potassium 100 mg 03/05/21 09:00 03/05/21 09:56 Losartan 50 Mg Tab PO 100 mg QAM [facility] Administration Melatonin 5 mg 03/04/21 18:57 Melatonin 5 Mg Tablet PO HS PRN Insomnia Naloxone HCl 0.2 mg 03/04/21 18:44 Naloxone 0.4 Mg/Ml 1 Ml Vial IV Q2M PRN Opioid Reversal Nicotine Polacrilex 2 mg 03/04/21 18:46 Nicotine Polacrilex 2 Mg Gum BUCCAL Q2HR PRN Nicotine Cravings Non-Formulary Medication 140 mg 03/17/21 09:00 Evolocumab [Repatha Syringe] SQ Q14D [facility] Ondansetron HCl 4 mg 03/04/21 18:46 Ondansetron 4 Mg/2 Ml Vial IVP Q8HR PRN Nausea And Vomiting Sotalol HCl 80 mg 03/04/21 23:00 03/05/21 09:56 Sotalol 80 Mg Tab PO 80 mg BID ARACELI Administration Intake and Output 03/04/21 03/05/21 03/05/21 22:59 06:59 14:59 Intake Total 75 365 Output Total 200 1160 Balance -125 -1160 365 Intake: IV 75 Intake, IV Titration 125 Amount Diltiazem 125 mg In 125 Sodium Chloride 0.9% 100 ml @ 10 MG/HR 10 mls/hr IV .[id number] [facility] Rx#: [id number] Oral 240 Output: Urine 200 1160 Other: Voiding Method Urinal Urinal Urinal # Voids 1 1 Weight 92 kg 92 kg 03/05/21 06:30 03/05/21 06:30
[2021-03-05] MEDS ORDERED: DILTIAZEM ORAL 30 MG TAB PO STA (16:05)
[2021-03-05 16:40] LABS: Glucose,Whole Blood 126 mg/dL (75-99)
--- NOTE | 2021-03-05 17:38 | P.PN ---
Subjective Progress Note Date: 03/05/21 Principal diagnosis: arrhythmia Patient is a 65 yo CM wtih a hx of COPD, ongoing tobacco abuse, CHF, CAD with hx of 2 stent and A fib anticoagulated with eliquis who presetend for outpatinet navagational bronch due to left lower lobe mass. During the procedure he went into A fib with RVR and was given labetalol, esmolol, and lopressor by anesthesia. He contiued to have A fib wtih HR 130-150s and we were asked by Dr. Park to admit the patient. He was started on a cardizem gtt which was weaned on 03/05 unfortunately his HR again went to 150 when ambulating and he was started on oral cardizem. Patient seen and examined at bedside. He states that he has had A fib for the last 4 years, well controlled he follows with [facility]. He did not take his sotalol this morning preoperatively. He is having a cough which is worsened post bronch, horse voice which is new, and mildly worsening of his shortness of breath after his bronch. He denies chest pain, palpitations, nausea, dizziness. Pertinent positives and negatives as discussed in HPI, a complete review of systems was performed and all other systems are negative. General: non toxic, no distress, appears at stated age Derm: warm, dry Head: atraumatic, normocephalic, symmetric Eyes: EOMI, no lid lag, anicteric sclera, pupils equal round reactive to light ENT: Nose and ears atraumatic, no thrush, no pharyngeal erythema Neck: No thyromegaly, no cervical lymphadenopathy, trachea midline, supple Mouth: no lip lesion, mucus membranes moist, hoarse voice Cardiovascular: S1S2 tachy, no murmur, positive posterior tibial pulse bilateral, no edema, capillary refill less than 2 seconds Lungs: course bs bilateral without wheeze, no ronchi, no rales, no wheeze, no accessory muscle use Abdominal: soft, nontender to palpation, no guarding, no appreciable organomegaly, normal bowel sounds Ext: no gross muscle atrophy, muscle strength muscle strength 5 out of 5 in all 4 extremities, no contractures Neuro: CN II-XI grossly intact, light touch intact all 4 extremities, finger to nose within normal limits, Psych: Alert, oriented, appropriate affect A fib wtih RVR - of cardizem gtt, still with HR 150-160 with ambulation start oral cardizem X 1 now and then long acting cardizem in AM - tele - cardio recs appreciated - on eliquis at home Left lung mass s/p bronch with biopsy with possible hemorhage - anticipate typical expectation - pulm recs appreciated CHF, compensated, unknown type - cozaar, lasix - follow strict I and O COPD without exacerbation with ongoing tobacco absue - prn bornchodilators - smoking cessation encouraged - nicotine gum DM 2 on orals - hold orals - follow BS - SSI DVT prophylaxis: scds Discussed with: patient, nursing Anticipated discharge date: in AM Anticipated discharge place: home A total of 45 minutes was spent on the care of this complex patient more than 50% of the time was spent in counseling and care coordination. Objective - Vital Signs Vital signs: Vital Signs Temp 98.4 F 03/05/21 12:00 Pulse 76 03/05/21 14:00 Resp 18 03/05/21 14:00 BP 130/88 03/05/21 12:00 Pulse Ox 94 L 03/05/21 12:00 Intake & Output 03/04/21 03/05/21 03/05/21 18:59 06:59 18:59 Intake Total 375 845 Output Total 200 1160 Balance 175 -1160 845 Weight 91.5 kg 92 kg Intake: IV 375 Intake, IV Titration 125 Amount Diltiazem 125 mg In 125 Sodium Chloride 0.9% 100 ml @ 5 MG/HR 5 mls/hr IV .Q24H [facility] Rx#:[id number] Oral 720 Output: Urine 200 1160 Other: Voiding Method Urinal Urinal # Voids 1 2 - Labs CBC & Chem 7: 03/05/21 06:30 03/05/21 06:30 Labs: Abnormal Lab Results - Last 24 Hours (Table) 03/04/21 03/04/21 03/04/21 Range/Units 17:56 19:07 19:07 WBC 15.5 H (3.8-10.6) k/uL Neutrophils # 12.9 H (1.3-7.7) k/uL Sodium 133 L (137-145) mmol/L Potassium 5.2 H (3.5-5.1) mmol/L Carbon Dioxide 20 L (22-30) mmol/L BUN (9-20) mg/dL Glucose 180 H (74-99) mg/dL POC Glucose (mg/dL) 153 H (75-99) mg/dL 03/04/21 03/05/21 03/05/21 Range/Units 20:32 06:21 06:30 WBC 11.3 H (3.8-10.6) k/uL Neutrophils # (1.3-7.7) k/uL Sodium (137-145) mmol/L Potassium (3.5-5.1) mmol/L Carbon Dioxide (22-30) mmol/L BUN (9-20) mg/dL Glucose (74-99) mg/dL POC Glucose (mg/dL) 159 H 154 H (75-99) mg/dL 03/05/21 03/05/21 03/05/21 Range/Units 06:30 11:32 16:38 WBC (3.8-10.6) k/uL Neutrophils # (1.3-7.7) k/uL Sodium 134 L (137-145) mmol/L Potassium (3.5-5.1) mmol/L Carbon Dioxide (22-30) mmol/L BUN 8 L (9-20) mg/dL Glucose 156 H (74-99) mg/dL POC Glucose (mg/dL) 170 H 126 H (75-99) mg/dL Microbiology - Last 24 Hours (Table) 03/04/21 13:30 Gram Stain - Preliminary Bronchoalviolar Lavage - Left Bronchial Washings Culture - Preliminary
[2021-03-05 20:09] LABS: Glucose,Whole Blood 151 mg/dL (75-99)
[2021-03-05] MEDS: BENZONATATE 100 MG CAP PO PRN (21:19)
[2021-03-05 23:42] VITALS: RESP 18
[2021-03-06 06:04] LABS: Glucose,Whole Blood 175 mg/dL (75-99)
[2021-03-06] MEDS: SODIUM CHLORIDE 0.9% 1,000 ML IV SCH ×2 (06:13→12:15)
[2021-03-06] MEDS: INSULIN ASPART (NovoLOG) 100 UNIT/ML VIAL SQ SCH ×2 (06:14→12:15)
[2021-03-06] MEDS: LOSARTAN 50 MG TAB PO SCH (08:51)
[2021-03-06] MEDS: hydrALAZINE HCL 50 MG TAB PO SCH (08:51)
[2021-03-06] MEDS: APIXABAN 5 MG TAB PO SCH (08:51)
[2021-03-06] MEDS: SOTALOL 80 MG TAB PO SCH (08:51)
[2021-03-06] MEDS: ATORVASTATIN 80 MG TAB PO SCH (08:51)
[2021-03-06] MEDS: FAMOTIDINE 20 MG TAB PO SCH (08:51)
[2021-03-06] MEDS: FUROSEMIDE 40 MG TAB PO SCH (08:51)
[2021-03-06] MEDS: BENZONATATE 100 MG CAP PO PRN (08:52)
[2021-03-06] MEDS: BENZOCAINE/MENTHOL LOZENG 1 EACH LOZENGE MUCOUS MEM PRN (08:52)
[2021-03-06] MEDS ORDERED: DILTIAZEM CD 120 MG CAP.ER.24H PO SCH (09:00)
[2021-03-06] MEDS ORDERED: DILTIAZEM ORAL 60 MG TAB PO STA (09:26)
--- NOTE | 2021-03-06 10:53 | P.PN ---
Subjective Progress Note Date: 03/06/21 Principal diagnosis: Atrial fibrillation with rapid ventricular response. This is a very pleasant 65-year-old gentleman who follows with Dr. Carnes as his primary care provider. He has a history of atrial fibrillation anticoagulated with Eliquis, coronary disease with previous stent placement, diabetes berg, congestive heart failure, history of alcoholism, chronic obstructive pulmonary disease, chronic and ongoing tobacco dependence of at least 1 pack per day for 50 years. He had initially been in [facility] with chest pain and palpitations. He was found to be in atrial fibrillation with a rapid ventricular response at that time. He was scheduled to undergo ablation that same week. However his chest x-ray had revealed a mass in the left upper lung suspicious for cancer. He was seen in our office and subsequently set up for navigational bronchoscopy which was performed electively here yesterday. Just at the end of the procedure the patient did develop atrial fibrillation with rapid ventricular response requiring beta blockers and subsequent Cardizem drip currently at 10 mg per hour. He was admitted for the same. He is seen today in follow-up on the selective care unit. He is awake and alert in no acute distress. Maintaining O2 saturations in the 90s on room air. He remains in atrial fibrillation however his heart rate is presently controlled in the 60s and 70s. No chest pain. No palpitations lightheadedness or dizziness. No worsening shortness of breath cough or congestion. No hemoptysis. He did have a stress test earlier this week at an outside facility that was reported as negative for acute ischemia. Chest x-ray reveals in the left lung lingular area some mild hemorrhage noted around biopsy sites. No pneumothorax. Mild atelectasis in the right lung. Bronchial cultures pending. Pathology pending. White count 11.3. Hemoglobin 14.6. Sodium 134. Potassium 4.7. Creatinine 0.69. Troponin 0.014. 0.031. Currently on a Cardizem drip at 5 mg per hour. Remains on Eliquis. Resumed on sotalol. Progress note dated 03/06/2021. Currently, the patient's on room air. The patient is currently not on Cardizem drip anymore. The patient would like to be discharged home. The patient still in atrial fibrillation. His rate is anywhere from about 85 bpm up to 120 bpm. He has been seen by cardiology. No labs from today as yet. Temperature 98.2, heart rate 107, respiratory rate 18, blood pressure 131/81, and room air saturation 95%. Objective - Vital Signs Vital signs: Vital Signs Temp 98.2 F 03/06/21 08:00 Pulse 107 H 03/06/21 08:00 Resp 18 03/06/21 08:00 BP 169/102 03/06/21 08:00 Pulse Ox 95 03/06/21 08:00 Intake & Output 03/05/21 03/06/21 03/06/21 18:59 06:59 18:59 Intake Total 1025 240 Output Total 120 Balance 1025 -120 240 Weight 92.5 kg Intake: Intake, IV Titration 125 Amount Diltiazem 125 mg In 125 Sodium Chloride 0.9% 100 ml @ 5 MG/HR 5 mls/hr IV .Q24H [facility] Rx#:[id number] Oral 900 240 Output: Urine 120 Other: Voiding Method Urinal Urinal Urinal # Voids 2 1 1 - Exam No acute distress, oriented 3. HEENT examination is grossly unremarkable. Neck supple. Full range of motion. No adenopathy thyromegaly or neck vein distention. Cardiovascular examination reveals an irregular rhythm and rate. S1-S2 normal. No S3 or S4. No discernible murmur noted. Heart rate about 107 bpm. Lungs reveal clear breath sounds. Breath sounds are equal bilaterally. No adventitious lung sounds including wheezes rhonchi or crackles. Abdomen soft bowel sounds are heard. No masses or tenderness. Extremities are intact. No cyanosis clubbing or edema. Skin is without rash or lesion. Neurologic examination is brief but nonfocal. - Labs CBC & Chem 7: 03/05/21 06:30 03/05/21 06:30 Labs: Abnormal Lab Results - Last 24 Hours (Table) 03/05/21 03/05/21 03/05/21 Range/Units 11:32 16:38 19:58 POC Glucose (mg/dL) 170 H 126 H 151 H (75-99) mg/dL 03/06/21 Range/Units 06:02 POC Glucose (mg/dL) 175 H (75-99) mg/dL Microbiology - Last 24 Hours (Table) 03/04/21 13:30 Gram Stain - Final Bronchoalviolar Lavage - Left Bronchial Washings Culture - Final Assessment and Plan Assessment: 1 Atrial fibrillation with a rapid ventricular response currently on a Cardizem drip. 2 History of atrial fibrillation, anticoagulated with Eliquis, maintained on sotalol. Being worked up for possible ablation in the outpatient setting. 3 Left lung mass suspicious for neoplasm status post bronchoscopy with biopsies on 03/04/2021. 4 History of coronary artery disease with previous stent placements. Recent stress testing at outside facility revealed negative for ischemia. 5 History of congestive heart failure. 6 Chronic and ongoing tobacco dependence. 7 Chronic obstructive pulmonary disease. 8 History of alcohol abuse. 9 Diabetes mellitus. Plan: Plan dated 03/06/2021. The patient would like to be discharged. We'll leave that up to cardiology. Clinically, the patient seems be doing much better. He still in atrial fibrillation. His rate is much lower than it has been but does go up to about 120 bpm at times. We will continue to follow. Additional recommendations and suggestions are forthcoming. The patient has a left lung mass suspicious for neoplasm. He underwent navigational bronchoscopy on March 04. Current results are pending. Time with Patient: Less than 30
--- NOTE | 2021-03-06 11:26 | P.PN ---
Subjective Progress Note Date: 03/06/21 The patient states he is feeling relatively well. He is sitting up in his recliner chair at the time of my examination. He states he did get some shortness of breath when walking around the unit yesterday. Heart rates were noted to be in the 150s to 160s with ambulation. No chest pain or chest pressure. No dizziness or lightheadedness. GENERAL: Well-appearing, well-nourished and in no acute distress. NECK: Supple without JVD or thyromegaly. LUNGS: Breath sounds diminished to auscultation bilaterally. Respiration equal and unlabored. No wheezes, rales or rhonchi. HEART: Irregular rate and rhythm without murmurs, rubs or gallops. S1 and S2 heard. EXTREMITIES: Normal range of motion, mild edema. No clubbing or cyanosis. Peripheral pulses intact and strong. VITALS: Blood pressure 159/102, SpO2 95% on room air, pulse rate 107, respiratory rate 18, temp 98.2F TELEMETRY: Persistent atrial fibrillation with rates in the 100s. IMPRESSION: Paroxysmal atrial fibrillation, RVR with ambulation, maximize calcium channel blockers and discontinue sotalol Lung mass, status post bronchoscopy History of coronary artery disease, on Plavix Hypertension Dyslipidemia, on statin Current smoker PLAN: Discontinue sotalol as patient remains in atrial fibrillation Increase long-acting Cardizem them to 180 mg daily; additional 60 mg of short acting now Resume Eliquis and Plavix when cleared by pulmonology Encourage ambulation to assess rate control Further recommendations on clinical course The patient has been seen and evaluated. Plan of care has been reviewed and agreed upon by Dr Ponce. Objective - Vital Signs Vital signs: Vital Signs Temp 98.2 F 03/06/21 08:00 Pulse 107 H 03/06/21 08:00 Resp 18 03/06/21 08:00 BP 169/102 03/06/21 08:00 Pulse Ox 95 03/06/21 08:00 Intake & Output 03/05/21 03/06/21 03/06/21 18:59 06:59 18:59 Intake Total 1025 240 Output Total 120 Balance 1025 -120 240 Weight 92.5 kg Intake: Intake, IV Titration 125 Amount Diltiazem 125 mg In 125 Sodium Chloride 0.9% 100 ml @ 5 MG/HR 5 mls/hr IV .Q24H [facility] Rx#:[id number] Oral 900 240 Output: Urine 120 Other: Voiding Method Urinal Urinal Urinal # Voids 2 1 1 - Labs CBC & Chem 7: 03/05/21 06:30 03/05/21 06:30 Labs: Abnormal Lab Results - Last 24 Hours (Table) 03/05/21 03/05/21 03/05/21 Range/Units 11:32 16:38 19:58 POC Glucose (mg/dL) 170 H 126 H 151 H (75-99) mg/dL 03/06/21 Range/Units 06:02 POC Glucose (mg/dL) 175 H (75-99) mg/dL Microbiology - Last 24 Hours (Table) 03/04/21 13:30 Gram Stain - Final Bronchoalviolar Lavage - Left Bronchial Washings Culture - Final
--- NOTE | 2021-03-06 11:36 | P.DS ---
<Pritesh Enriquez - Last Filed: 03/06/21 11:34> Providers Expected date of discharge: 03/06/21 Hospital Course: Discharge Diagnosis: Atrial fibrillation with RVR Left lung mass s/p bronch with biopsy with possible hemorhage CHF, compensated, unknown type COPD without exacerbation with ongoing tobacco absue [id number]-[id number] diabetes mellitus type 2 Hospital Course: Patient is a 65-year-old male with a past medical history of CAD and 2 previous stent placements, atrial fibrillation on anticoagulation with Eliquis, COPD with ongoing tobacco use, chronic congestive heart failure, and jpe-czxumnm-ago endent diabetes mellitus type 2. Patient presented to our facility on 03/04/21 for atrial fibrillation with RVR. Patient was being seen outpatient where he was having a bronchoscopy with biopsy of mass in his left lung when he suddenly went into A. fib RVR requiring labetalol, esmolol, and Lopressor being given by anesthesia in which did not control RVR and patient continued to have rapid ventricular rate in the 130s to 150s resulting in admission under our services with consultation to pulmonary and cardiology. Patient was admitted requiring placement on a Cardizem infusion and later transferred to oral Cardizem. Patient's condition has been stabilized and he is stable for discharge home. He has been cleared to resume his anticoagulation per pulmonology and to follow-up outpatient in their office in one week. Cardiology discontinued sotalol and place patient on Cardizem 180 mg daily and advising patient to follow-up outpatient in their office in one week. Physical examination: Patient seen and examined at bedside this morning. He was sitting up in his chair and reports feeling great. Patient denies having any headache, lightheade dness, dizziness, chest pain or palpitations, shortness of breath, or dyspnea with exertion. Patient able to ambulate in the halls and walk around department without difficulties, heart rate did go up to 120 bpm per RN but went back to controlled rate at rest. Patient denied any chest pain, palpitations, or shortness of breath during walk. Vital signs reviewed and stable. General: Nontoxic, no distress and appears stated age. Derm: Skin warm and dry, normal coloration for ethnicity. Head: Atraumatic, normocephalic and symmetric. Eyes: EOMs intact, no lid lag, and anicteric sclera Mouth: no lip lesions, mucus membranes moist Cardiovascular: regular rate and rhythm with normal S1S2, no murmur, positive posterior tibial pulses bilaterally, and cap refill < 2 seconds. Lungs: Respirations even, regular, and unlabored on room air. Lungs CTA bilaterally, no rhonchi, no rales, no wheezing, and no accessory muscle usage. Abdominal: soft, nontender to palpation, no guarding, no appreciable organomegaly Ext: ROM intact. No gross muscle atrophy, no edema, no contractures Neuro: Speech clear, face symmetrical and CN II-XII grossly intact with no noted focal neuro deficits Psych: Alert and oriented to person, place, time, and situation. Appropriate and pleasant affect. A total of 45 minutes of time were spent preparing this complex discharge summary. Plan - Discharge Summary Discharge Rx Participant: No New Discharge Prescriptions: New Diltiazem Cd [Cardizem CD] 180 mg PO DAILY 30 Days #30 cap.er.24h Continue Clopidogrel [Plavix] 75 mg PO DAILY Rosuvastatin Calcium 40 mg PO DAILY Potassium Chloride [Klor-Con 20] 20 meq PO DAILY hydrALAZINE HCL [Apresoline] 100 mg PO BID glipiZIDE XL [Glucotrol XL] 10 mg PO DAILY Furosemide [Lasix] 40 mg PO DAILY Famotidine 20 mg PO DAILY Apixaban [Eliquis] 5 mg PO BID Losartan Potassium [Cozaar] 100 mg PO QAM Evolocumab [Repatha Syringe] 140 mg SQ Q14D Discontinued Sotalol HCl [Sotalol AF] 80 mg PO BID Discharge Medication List Apixaban [Eliquis] 5 mg PO BID 02/28/21 [History] Clopidogrel [Plavix] 75 mg PO DAILY 02/28/21 [History] Evolocumab [Repatha Syringe] 140 mg SQ Q14D 02/28/21 [History] Famotidine 20 mg PO DAILY 02/28/21 [History] Furosemide [Lasix] 40 mg PO DAILY 02/28/21 [History] Losartan Potassium [Cozaar] 100 mg PO QAM 02/28/21 [History] Potassium Chloride [Klor-Con 20] 20 meq PO DAILY 02/28/21 [History] Rosuvastatin Calcium 40 mg PO DAILY 02/28/21 [History] glipiZIDE XL [Glucotrol XL] 10 mg PO DAILY 02/28/21 [History] hydrALAZINE HCL [Apresoline] 100 mg PO BID 02/28/21 [History] Diltiazem Cd [Cardizem CD] 180 mg PO DAILY 30 Days #30 cap.er.24h 03/06/21 [Rx] Follow up Appointment(s)/Referral(s): Ramos Ponce MD [STAFF PHYSICIAN] - 1 Week Aaron Park DO [Doctor of Osteopathic Medicine] - 1 Week Rodolfo Carnes MD [Primary Care Provider] - 1-2 Days Patient Instructions/Handouts: A-fib (Atrial Fibrillation) (DC) Activity/Diet/Wound Care/Special Instructions: Activity: As tolerated, remember to take breaks as needed! Baby steps, do not try to overdo it when you first get home. Diet: Heart healthy diet Special Instructions: You may resume all of your home meds upon discharge with the exception of sotolol as this has been discontinued by cardiology and you have been started on Cardizem 180 mg per day. If at any time you develop any distress at home, it is important to notify your primary doctor/junior administrative assistant and you should go directly to an emergency department. Due to the holiday we are unable to schedule your outpatient appointments for your follow-up because the offices are closed. It is important for you to call first thing tomorrow morning and schedule appointments with your primary care doctor-Dr. Carnes, your calculating machine mechanic-Dr. Park, and junior administrative assistant-Dr. Ponce. Thank you for allowing us to participate in your care, it was a pleasure having you as our patient! Discharge Disposition: HOME SELF-CARE <Lexy Ruiz - Last Filed: 03/06/21 16:50> Providers Date of admission: 03/04/21 18:39 Attending physician: Lexy Ruiz DO Consults: 03/04/21 18:47 Consult Physician Routine Consulting Provider: Aaron Park Consult Reason/Comments: lung nodule Do you want consulting provider notified?: Yes Consult Physician Routine Consulting Provider: Ramos Ponce Consult Reason/Comments: a fib wtih RVR Do you want consulting provider notified?: Yes Primary care physician: [facility] Course: Pritesh Enriquez NP rendered care for this patient independently, reviewed the findings and plan as documented in the note above. I did not physically speak with or examine the patient on this date.
[2021-03-06 12:00] LABS: Glucose,Whole Blood 185 mg/dL (75-99)
[2021-03-06 12:40] VITALS: BP 165/92; PULSE 95; TEMP 98.5
[2021-03-07] MEDS ORDERED: DILTIAZEM CD 180 MG CAP.ER.24H PO SCH (09:00)
[2021-03-17] MEDS ORDERED: NON FORMULARY DRUG (Evolocumab [Repatha Syringe] 140 MG/ML Syringe) SQ SCH (09:00)
== END 2021-03-06 13:04 | disposition home or self-care (01) ==
LOC: ORWHC2ENDO 10:53 → 3SCARD 18:32 → ORWHC2ENDO 18:39 → 3SCARD 18:39
PROVIDERS: ADMIT Internal Medicine; ATTEND Internal Medicine
DX: R91.8 Other nonspecific abnormal finding of lung field (principal); I97.191 Other postprocedural cardiac functional disturbances following other surgery; I48.19 Other persistent atrial fibrillation; I11.0 Hypertensive heart disease with heart failure; I50.9 Heart failure, unspecified; R59.0 Localized enlarged lymph nodes; J44.9 Chronic obstructive pulmonary disease, unspecified; E11.9 Type 2 diabetes mellitus without complications; I25.10 Atherosclerotic heart disease of native coronary artery without angina pectoris; I95.9 Hypotension, unspecified; E78.5 Hyperlipidemia, unspecified; F10.20 Alcohol dependence, uncomplicated; J98.11 Atelectasis; F17.210 Nicotine dependence, cigarettes, uncomplicated; Z79.01 Long term (current) use of anticoagulants; Z79.02 Long term (current) use of antithrombotics/antiplatelets; Z79.84 Long term (current) use of oral hypoglycemic drugs; Z79.899 Other long term (current) drug therapy; Z95.5 Presence of coronary angioplasty implant and graft; Z98.890 Other specified postprocedural states; Z80.9 Family history of malignant neoplasm, unspecified
CPT/HCPCS: 96365; 96366 ×2; 93005 ×2; 94760; 88104; 88108; 88305; 88173; 80053; 80048; 83735; 84100; 84484 ×2; 85025; 85027; 87070; 87205; 71045; 71250; 31628; 31623; 31624; 31627; G0378 ×3; J2405; J0330; J2704; 31625; 31633

== ENCOUNTER → 2021-04-05 | Day surgery (SDC) | payer MEDICARE ==
[~2021-04-05] MED LIST changes: +ACETAMINOPHEN TAB 325 MG TAB ONE; +ACETAMINOPHEN TAB 325 MG TAB PO PRN; -ALBUTEROL NEB (CONC) 2.5 MG/0.5 ML INHALATION ONE; +ALPRAZolam 0.25 MG TAB PO STA; -ATROPINE SULFATE 0.4 MG/ML 1 ML VIAL IM ONE; -LIDOCAINE 2% (PF) 20 MG/ML 5 ML VIAL INHALATION ONE; -LIDOCAINE VISCOUS 300 MG/15 ML CUP MUCOUS MEM ONE
[2021-04-05 08:47] VITALS: RESP 16; TEMP 97.5
[2021-04-05 09:32] LABS: Mean Platelet Volume 7.4; Platelet Count 326 k/uL (150-450)
[2021-04-05 09:59] LABS: Prothrombin Time 10.3 sec (9.0-12.0)
--- NOTE | 2021-04-05 11:09 | CT ---
EXAMINATION TYPE: CT biopsy lung LT DATE OF EXAM: 04/05/2021 COMPARISON: 03/04/2021 HISTORY: Lung mass CT DLP: 731 mGycm The procedure is discussed with the patient, the risks, complications, benefits and alternatives, wer e discussed and any questions were answered. Informed consent was obtained. The patient is placed p geovany on the CT table, prepped and draped in the usual sterile fashion. Utilizing a 18-gauge core biopsy needle access into the left upper lobe lobe mass was achieved with a single sample obtained. Pathology ending. All elements of maximal barrier technique were utilized. The patient remained stable throughout the procedure with no immediate postprocedural complication. IMPRESSION: 1. Successful CT guided core biopsy of a left upper lobe lung mass
[2021-04-05 14:12] VITALS: BP 134/72; PULSE 56
--- NOTE | 2021-04-05 14:43 | XR ---
EXAMINATION TYPE: XR chest 1V portable 1044 hours DATE OF EXAM: 04/05/2021 Comparison: 03/04/2021 Clinical History: 65-year-old male post lung biopsy. To be cleared by radiologist Findings: Heart upper limits of normal in size. Aorta and pulmonary vasculature within normal limits. Left lowe r lung mass is redemonstrated. No appreciable pneumothorax. The mild patchy lower lung densities are unchanged. No pleural effusion. Impression: Known left lower lung mass. No appreciable pneumothorax. Mild patchy basilar densities are unchanged.
--- NOTE | 2021-04-05 15:04 | XR ---
EXAMINATION TYPE: XR chest 1V 1239 hours DATE OF EXAM: 04/05/2021 COMPARISON: Earlier today, 1044 hours HISTORY: 65-year-old male postlung biopsy TECHNIQUE: Single frontal view of the chest is obtained. FINDINGS: The heart is borderline enlarged. Low lung volumes with crowded vascular markings. Mild patchy bibasi lar opacities likely atelectasis given lower lung volumes. No left lower lobe mass. No appreciable pn eumothorax. IMPRESSION: Hypoventilatory changes. Known left lower lobe mass. No appreciable pneumothorax.
== END ==
LOC: RADPROMAIN 08:01
PROVIDERS: ATTEND Internal Medicine Critical Care Medicine
DX: C34.12 Malignant neoplasm of upper lobe, left bronchus or lung (principal)
CPT/HCPCS: 32408; 36415; 71045; 77012; 82947; 85049; 85610; 88305; 88341; 88342

== ENCOUNTER → 2021-05-11 | Outpatient (CLI) | payer MEDICARE ==
--- NOTE | 2021-05-11 07:34 | MR ---
EXAMINATION TYPE: MR brain wo/w con DATE OF EXAM: 05/11/2021 COMPARISON: NONE HISTORY: Newly diagnosed lung cancer, staging study TECHNIQUE: Multiplanar, multisequence images of the brain and brainstem is performed without and with IV contras t, utilizing 9 mL intravenous Gadavist . FINDINGS: Diffusion weighted images demonstrate no evidence of a recent infarct or other diffusion ab normality. There is mild ventricular and sulcal prominence consistent with mild diffuse age-related cerebral atrophy. Occasional scattered focus of T2 hyper intensity, less than 5 lesions are present. Midline structures demonstrate normal morphology. The craniocervical junction appears within normal limits. Post contrast images demonstrate no abnormal enhancement or enhancing masses. The dural veno us sinuses appear patent. The visualized sinuses are clear and the globes are intact. IMPRESSION: No suspicious enhancing masses to suggest metastatic disease to the brain.
== END | disposition home or self-care (01) ==
LOC: RADMRIMAIN 06:26
PROVIDERS: ATTEND Internal Medicine Hematology & Oncology
DX: C34.90 Malignant neoplasm of unspecified part of unspecified bronchus or lung (principal)
CPT/HCPCS: 70553; A9585

== ENCOUNTER 2021-06-05 10:06 | Emergency (ER) | payer MEDICARE ==
[2021-06-05 10:29] VITALS: TEMP 98.2
[2021-06-05] MEDS ORDERED: SIMETHICONE 80 MG CHEWABLE PO STA (10:38)
--- NOTE | 2021-06-05 10:42 | ED ---
General Adult HPI - General Chief complaint: Abdominal Pain Stated complaint: cancer pt, abd bloating & indigestion Time Seen by Provider: 06/05/21 10:30 Source: patient, RN notes reviewed, old records reviewed Mode of arrival: ambulatory Limitations: no limitations - History of Present Illness Initial comments: This is a 66-year-old male presents emergency Department complaining of having abdominal bloating and quite a bit of belching. Patient states he has no abdominal pain. Patient reiterated this twice to me. Triage note did mention abdominal pain but he denied it multiple times to me. Patient denies any vomiting or diarrhea. Patient states he had chemo on June 02 and ever since then he's had this excessive bloating and belching. Patient states this happened last time he had chemo as well. Patient denies any fever chills per patient denies any back pain. Patient denies any other complaints. - Related Data Home Medications Medication Instructions Recorded Confirmed Apixaban [Eliquis] 5 mg PO BID 02/28/21 04/05/21 Clopidogrel [Plavix] 75 mg PO DAILY 02/28/21 04/05/21 Evolocumab [Repatha Syringe] 140 mg SQ Q14D 02/28/21 04/05/21 Famotidine 20 mg PO DAILY 02/28/21 04/05/21 Furosemide [Lasix] 40 mg PO DAILY 02/28/21 04/05/21 Losartan Potassium [Cozaar] 100 mg PO QAM 02/28/21 04/05/21 Potassium Chloride [Klor-Con 20] 20 meq PO DAILY 02/28/21 04/05/21 glipiZIDE XL [Glucotrol XL] 10 mg PO DAILY 02/28/21 04/05/21 hydrALAZINE HCL [Apresoline] 50 mg PO BID 02/28/21 04/05/21 Sotalol [Betapace] 120 mg PO BID 03/28/21 04/05/21 Previous Rx's Medication Instructions Recorded Diltiazem Cd [Cardizem CD] 180 mg PO DAILY 30 Days #30 03/06/21 cap.er.24h Simethicone 180 mg PO BID #10 06/05/21 chlorproMAZINE [Thorazine] 25 mg PO TID #20 tablet 06/05/21 Allergies Allergy/AdvReac Type Severity Reaction Status Date / Time No Known Allergies Allergy Verified 06/05/21 10:29 Review of Systems ROS Statement: Those systems with pertinent positive or pertinent negative responses have been documented in the HPI. ROS Other: All systems not noted in ROS Statement are negative. Past Medical History Past Medical History: Atrial Fibrillation, Cancer, COPD, Diabetes Mellitus, GERD/Reflux, Hypertension Additional Past Medical History / Comment(s): Spot on right lung, stress test scheduled for 03-01-21, lung ca History of Any Multi-Drug Resistant Organisms: None Reported Past Surgical History: Hernia Repair Additional Past Surgical History / Comment(s): hernia x2,fatty tumor removed abdomen, cardiac stent X 2, Past Anesthesia/Blood Transfusion Reactions: No Reported Reaction Past Psychological History: No Psychological Hx Reported Smoking Status: Current every day smoker Past Alcohol Use History: Daily Past Drug Use History: None Reported - Past Family History Mother Family Medical History: Cancer Sister(s) Family Medical History: Cancer General Exam - General Exam Comments Initial Comments: GENERAL: Patient is well-developed and well-nourished. Patient is nontoxic and well- hydrated and is in no acute distress. Patient was not currently having any belching. ENT: Neck is soft and supple. No significant lymphadenopathy is noted. Oropharynx is clear. Moist mucous membranes. Neck has full range of motion without eliciting any pain. EYES: The sclera were anicteric and conjunctiva were pink and moist. Extraocular movements were intact and pupils were equal round and reactive to light. Eyelids were unremarkable. PULMONARY: Unlabored respirations. Good breath sounds bilaterally. No audible rales rhonchi or wheezing was noted. CARDIOVASCULAR: There is a regular rate and rhythm without any murmurs gallops or rubs. ABDOMEN: Soft and nontender with normal bowel sounds. SKIN: Skin is clear with no lesions or rashes and otherwise unremarkable. NEUROLOGIC: Patient is alert and oriented x3. Cranial nerves II through XII are grossly intact. Motor and sensory are also intact. Normal speech, volume and content. Symmetrical smile. MUSCULOSKELETAL: Normal extremities with adequate strength and full range of motion. LYMPHATICS: No significant lymphadenopathy is noted PSYCHIATRIC: Normal psychiatric evaluation. Limitations: no limitations Course Vital Signs 06/05/21 06/05/21 10:26 11:25 Temperature 98.2 F Pulse Rate 57 L 71 Respiratory 18 20 Rate Blood Pressure 146/96 124/102 O2 Sat by Pulse 97 97 Oximetry Medical Decision Making - Medical Decision Making Patient received simethicone and I will back and evaluated the patient after that he stated all of his symptoms completely resolved and he wanted to be discharged home. Patient's symptoms eventually came back slightly gave the patient 25 mg Thorazine and sent the patient home with the same prescription. Disposition Clinical Impression: Abdominal bloating, Hiccups Disposition: HOME SELF-CARE Condition: Good Additional Instructions: Patient should not drive on Thorazine. Prescriptions: Simethicone 180 mg PO BID #10 chlorproMAZINE [Thorazine] 25 mg PO TID #20 tablet Is patient prescribed a controlled substance at d/c from ED?: No Referrals: Rodolfo Carnes MD [Primary Care Provider] - 1-2 days Time of Disposition: 11:37
--- NOTE | 2021-06-05 11:26 | XR ---
EXAMINATION TYPE: XR KUB DATE OF EXAM: 06/05/2021 10:55 AM CLINICAL HISTORY: Bloating and pain. TECHNIQUE: Two Upright KUB images of the abdomen are obtained. COMPARISON: None. FINDINGS: Scattered gas is seen in non-distended small and large bowel loops. Moderate size Hiatal he rnia is present. Lung bases are clear. No free air or suspicious calcification. Visualized osseous st ructures are intact. IMPRESSION: Overall nonobstructive bowel gas pattern.
[2021-06-05 11:28] VITALS: BP 124/102; PULSE 71; RESP 20
[2021-06-05] MEDS ORDERED: chlorproMAZINE 25 MG TAB PO STA (13:09)
== END 2021-06-05 13:45 | disposition home or self-care (01) ==
LOC: EC 10:06
DX: R14.0 Abdominal distension (gaseous) (principal); R06.6 Hiccough; J44.9 Chronic obstructive pulmonary disease, unspecified; E11.9 Type 2 diabetes mellitus without complications; I10 Essential (primary) hypertension; I48.91 Unspecified atrial fibrillation; K21.9 Gastro-esophageal reflux disease without esophagitis; F17.200 Nicotine dependence, unspecified, uncomplicated; Z79.84 Long term (current) use of oral hypoglycemic drugs; Z79.01 Long term (current) use of anticoagulants
CPT/HCPCS: 74018; 99284

== ENCOUNTER 2021-09-02 17:25 | Emergency (ER) | payer MEDICARE ==
[2021-09-02 17:45] LABS: Glucose,Whole Blood 107 mg/dL (75-99)
[2021-09-02 17:52] VITALS: RESP 16; TEMP 97.6
[2021-09-02 18:32] LABS: Anisocytosis Slight; Basophils % (A) 0 %; Eosinophils # (A) 0.2 k/uL (0-0.7); Eosinophils % (A) 2 %; HCT 31.1 % (39.0-53.0); HGB 9.7 gm/dL (13.0-17.5); Hypochromasia Marked; Lymphocytes # (A) 0.5 k/uL (1.0-4.8); Lymphocytes % (A) 6 %; MCHC 31.2 g/dL (31.0-37.0); MCV 99.1 fL (80.0-100.0); Macrocytosis Slight; Mean Platelet Volume 7.9; Monocytes # (A) 0.5 k/uL (0-1.0); Monocytes % (A) 6 %; Neutrophils # (A) 6.3 k/uL (1.3-7.7); Neutrophils % (A) 84 %; Platelet Count 194 k/uL (150-450); Poikilocytosis Slight; RBC 3.13 m/uL (4.30-5.90); RDW 17.6 % (11.5-15.5); WBC 7.6 k/uL (3.8-10.6)
[2021-09-02 18:48] LABS: ALT 24 U/L (4-49); AST 70 U/L (17-59); African American GFR (CKD) >90 (>60 ml/min/1.73 sqM); Albumin 2.9 g/dL (3.5-5.0); Alkaline Phosphatase 165 U/L (38-126); Anion Gap 11 mmol/L; Blood Urea Nitrogen 19 mg/dL (9-20); Calcium 9.2 mg/dL (8.4-10.2); Carbon Dioxide 22 mmol/L (22-30); Chloride 100 mmol/L (98-107); Glucose 90 mg/dL (74-99); Non-African American GFR(CKD) >90 (>60 ml/min/1.73 sqM); Potassium 4.4 mmol/L (3.5-5.1); Sodium 133 mmol/L (137-145); Total Bilirubin 0.3 mg/dL (0.2-1.3); Total Protein 5.9 g/dL (6.3-8.2)
[2021-09-02 19:12] LABS: Glucose,Whole Blood 102 mg/dL (75-99)
--- NOTE | 2021-09-02 19:28 | ED ---
General Adult HPI - General Chief complaint: Recheck/Abnormal Lab/Rx Stated complaint: hypoglycemia Time Seen by Provider: 09/02/21 17:28 Source: patient, EMS, RN notes reviewed, old records reviewed Mode of arrival: EMS Limitations: no limitations - History of Present Illness Initial comments: 58-year-old male presenting with confusion, hypoglycemia. Patient had blood sugar in the 40s. He is diagnosed with diabetes and is on metformin no hypoglycemic medications. No insulin. He has not been eating well secondary to poor appetite likely from chemotherapy. He has no pain complaints. He is alert and oriented time my evaluation. He had been transported by EMS, initial blood sugar 105 in the emergency department. - Related Data Home Medications Medication Instructions Recorded Confirmed Apixaban [Eliquis] 5 mg PO BID 02/28/21 04/05/21 Clopidogrel [Plavix] 75 mg PO DAILY 02/28/21 04/05/21 Evolocumab [Repatha Syringe] 140 mg SQ Q14D 02/28/21 04/05/21 Famotidine 20 mg PO DAILY 02/28/21 04/05/21 Furosemide [Lasix] 40 mg PO DAILY 02/28/21 04/05/21 Losartan Potassium [Cozaar] 100 mg PO QAM 02/28/21 04/05/21 Potassium Chloride [Klor-Con 20] 20 meq PO DAILY 02/28/21 04/05/21 glipiZIDE XL [Glucotrol XL] 10 mg PO DAILY 02/28/21 04/05/21 hydrALAZINE HCL [Apresoline] 50 mg PO BID 02/28/21 04/05/21 Sotalol [Betapace] 120 mg PO BID 03/28/21 04/05/21 Previous Rx's Medication Instructions Recorded Diltiazem Cd [Cardizem CD] 180 mg PO DAILY 30 Days #30 03/06/21 cap.er.24h Simethicone 180 mg PO BID #10 06/05/21 chlorproMAZINE [Thorazine] 25 mg PO TID #20 tablet 06/05/21 Allergies Allergy/AdvReac Type Severity Reaction Status Date / Time No Known Allergies Allergy Verified 06/05/21 10:29 Review of Systems ROS Statement: Those systems with pertinent positive or pertinent negative responses have been documented in the HPI. ROS Other: All systems not noted in ROS Statement are negative. Past Medical History Past Medical History: Atrial Fibrillation, Cancer, COPD, Diabetes Mellitus, GERD/Reflux, Hypertension Additional Past Medical History / Comment(s): Spot on right lung, stress test scheduled for 03-01-21, lung ca History of Any Multi-Drug Resistant Organisms: None Reported Past Surgical History: Hernia Repair Additional Past Surgical History / Comment(s): hernia x2,fatty tumor removed abdomen, cardiac stent X 2, Past Anesthesia/Blood Transfusion Reactions: No Reported Reaction Past Psychological History: No Psychological Hx Reported Smoking Status: Current every day smoker Past Alcohol Use History: Daily Past Drug Use History: None Reported - Past Family History Mother Family Medical History: Cancer Sister(s) Family Medical History: Cancer General Exam Limitations: no limitations General appearance: alert, in no apparent distress Head exam: Present: atraumatic, normocephalic Eye exam: Present: normal appearance, PERRL ENT exam: Present: normal exam Neck exam: Present: normal inspection. Absent: tenderness, meningismus Respiratory exam: Present: normal lung sounds bilaterally. Absent: respiratory distress, wheezes Cardiovascular Exam: Present: normal rhythm, bradycardia GI/Abdominal exam: Present: soft. Absent: distended, tenderness, guarding Extremities exam: Present: normal capillary refill Neurological exam: Present: alert, oriented X3, CN II-XII intact. Absent: motor sensory deficit Psychiatric exam: Present: normal affect, normal mood Skin exam: Present: warm, dry, intact. Absent: cyanosis, diaphoretic Course Vital Signs 09/02/21 09/02/21 17:42 19:14 Temperature 97.6 F Pulse Rate 51 L 55 L Respiratory 16 16 Rate Blood Pressure 116/70 110/58 O2 Sat by Pulse 100 94 L Oximetry EKG Findings - EKG Comments: EKG Findings:: EKG: Sinus bradycardia, right bundle branch block rate of 53, DC interval 176, QRS duration 142 QTC 471 Medical Decision Making - Medical Decision Making 66-year-old male presented for an episode of hypoglycemia. Patient is currently being treated for lung cancer. States that he had chemotherapy about 3 weeks ago and he has not had much of an appetite. Patient blood sugar does stabilize while in the emergency department. He prefers discharge and states that he will eat when he gets home. He is also able to eat some in the emergency department. - Lab Data Result diagrams: 09/02/21 18:25 09/02/21 18:25 Lab Results 09/02/21 09/02/21 09/02/21 Range/Units 17:44 18:25 18:25 WBC 7.6 (3.8-10.6) k/uL RBC 3.13 L (4.30-5.90) m/uL Hgb 9.7 L (13.0-17.5) gm/dL Hct 31.1 L (39.0-53.0) % MCV 99.1 (80.0-100.0) fL MCH 31.0 (25.0-35.0) pg MCHC 31.2 (31.0-37.0) g/dL RDW 17.6 H (11.5-15.5) % Plt Count 194 (150-450) k/uL MPV 7.9 Neutrophils % 84 % Lymphocytes % 6 % Monocytes % 6 % Eosinophils % 2 % Basophils % 0 % Neutrophils # 6.3 (1.3-7.7) k/uL Lymphocytes # 0.5 L (1.0-4.8) k/uL Monocytes # 0.5 (0-1.0) k/uL Eosinophils # 0.2 (0-0.7) k/uL Basophils # 0.0 (0-0.2) k/uL Hypochromasia Marked Poikilocytosis Slight Anisocytosis Slight Macrocytosis Slight Sodium 133 L (137-145) mmol/L Potassium 4.4 (3.5-5.1) mmol/L Chloride 100 (98-107) mmol/L Carbon Dioxide 22 (22-30) mmol/L Anion Gap 11 mmol/L BUN 19 (9-20) mg/dL Creatinine 0.81 (0.66-1.25) mg/dL Est GFR (CKD-EPI)AfAm >90 (>60 ml/min/1.73 sqM) Est GFR (CKD-EPI)NonAf >90 (>60 ml/min/1.73 sqM) Glucose 90 (74-99) mg/dL POC Glucose (mg/dL) 107 H (75-99) mg/dL POC Glu Insurance Billing Specialist ID Eliazar, Katherine Calcium 9.2 (8.4-10.2) mg/dL Total Bilirubin 0.3 (0.2-1.3) mg/dL AST 70 H (17-59) U/L ALT 24 (4-49) U/L Alkaline Phosphatase 165 H (38-126) U/L Total Protein 5.9 L (6.3-8.2) g/dL Albumin 2.9 L (3.5-5.0) g/dL 09/02/21 Range/Units 19:11 WBC (3.8-10.6) k/uL RBC (4.30-5.90) m/uL Hgb (13.0-17.5) gm/dL Hct (39.0-53.0) % MCV (80.0-100.0) fL MCH (25.0-35.0) pg MCHC (31.0-37.0) g/dL RDW (11.5-15.5) % Plt Count (150-450) k/uL MPV Neutrophils % % Lymphocytes % % Monocytes % % Eosinophils % % Basophils % % Neutrophils # (1.3-7.7) k/uL Lymphocytes # (1.0-4.8) k/uL Monocytes # (0-1.0) k/uL Eosinophils # (0-0.7) k/uL Basophils # (0-0.2) k/uL Hypochromasia Poikilocytosis Anisocytosis Macrocytosis Sodium (137-145) mmol/L Potassium (3.5-5.1) mmol/L Chloride (98-107) mmol/L Carbon Dioxide (22-30) mmol/L Anion Gap mmol/L BUN (9-20) mg/dL Creatinine (0.66-1.25) mg/dL Est GFR (CKD-EPI)AfAm (>60 ml/min/1.73 sqM) Est GFR (CKD-EPI)NonAf (>60 ml/min/1.73 sqM) Glucose (74-99) mg/dL POC Glucose (mg/dL) 102 H (75-99) mg/dL POC Glu Insurance Billing Specialist ID Katherine Perea Calcium (8.4-10.2) mg/dL Total Bilirubin (0.2-1.3) mg/dL AST (17-59) U/L ALT (4-49) U/L Alkaline Phosphatase (38-126) U/L Total Protein (6.3-8.2) g/dL Albumin (3.5-5.0) g/dL Disposition Clinical Impression: Hypoglycemia Disposition: HOME SELF-CARE Condition: Fair Instructions (If sedation given, give patient instructions): Hypoglycemia in a Person with Diabetes (ED) Is patient prescribed a controlled substance at d/c from ED?: No Referrals: Rodolfo Carnes MD [Primary Care Provider] - 1-2 days Time of Disposition: 19:28
[2021-09-02 20:01] VITALS: BP 112/58; PULSE 54
== END 2021-09-02 20:22 | disposition home or self-care (01) ==
LOC: EC 17:25
DX: E11.649 Type 2 diabetes mellitus with hypoglycemia without coma (principal); I10 Essential (primary) hypertension; J44.9 Chronic obstructive pulmonary disease, unspecified; I48.91 Unspecified atrial fibrillation; K21.9 Gastro-esophageal reflux disease without esophagitis; F17.200 Nicotine dependence, unspecified, uncomplicated; Z79.01 Long term (current) use of anticoagulants; Z79.84 Long term (current) use of oral hypoglycemic drugs; Z79.899 Other long term (current) drug therapy
CPT/HCPCS: 36415; 80053; 85025; 93005; 99285

== ENCOUNTER → 2021-09-05 | Outpatient (CLI) | payer MEDICARE ==
--- NOTE | 2021-09-05 11:56 | CT ---
EXAMINATION TYPE: CT ChestAbdPelvis w con DATE OF EXAM: 09/05/2021 COMPARISON: PET CT 02/04/2021 HISTORY: 66-year-old male Lung Cancer of lower lobe TECHNIQUE: Contiguous axial scanning of the chest, abdomen, and pelvis performed with IV Contrast, pa tient injected with 100 mL of Isovue 300. Delayed images through the kidneys were obtained. Coronal/s agittal reconstructions performed. CT DLP: 1369 mGycm Automated exposure control for dose reduction was used. FINDINGS: CHEST: Heart upper limits of normal in size without pericardial effusion. LAD and circumflex coronary artery calcifications are present. Borderline ectatic ascending aorta 3.5 cm in upper descending thoracic aorta 3.2 cm. Mild to moderate atherosclerotic arch calcifications with conventional arch vessel branching anatomy. Abnormal 1.6 cm subcarinal lymph node. Possible 2.1 cm left hilar lymph node. A large caliber to the main right and left pulmonary arteries at 2.7 and 2.8 mm, respectively, sugges ting underlying pulmonary hypertension. There is a trace left pleural effusion with new 3.1 cm mass posterior left base. Prominent consolidat ion throughout the left midlung may reflect postradiation therapy changes. Background moderate to adv anced emphysema. New 2.4 cm on a nodule posterior right base. A few additional scattered right-sided pulmonary nodules are present. Most are 4 mm or smaller, axial image 32 and 28. Measuring up to 9 mm, axial image 42. Some patchy peripheral subpleural groundglass areas, for example, axial image 46 and 45 in the periph petty of the right base could reflect atypical pneumonia. ABDOMEN: Multiple hepatic lesions are now present. Approximately 9 lesions. Largest measuring up to 7.3 cm of the right hepatic dome. Portal venous system is patent. No biliary ductal dilatation. Gallbladder, kidneys, pancreas, right adrenal gland within normal limits. New 1.3 cm left adrenal nodule. Moderate atherosclerotic calcifications and plaque within the infrarenal abdominal aorta and iliac ar teries. No dilated small bowel, free fluid, or free air. No mesenteric or retroperitoneal lymphadenop athy. Moderate to large stool burden. Mildly redundant sigmoid colon. Mid to distal sigmoid clonic divertic ulosis. No pericolonic inflammatory change. PELVIS: Calculus right internal canal. Bladder partially distended. Prostate gland measures 4.1 cm wide. Smal l to moderate left hydrocele. High riding right testicle. No abnormal fluid collection in the pelvis or pelvic lymphadenopathy. BONES: Mild degenerative change of the hips. Facet arthropathy lower lumbar spine. New T11 vertebral compression collapse. Fracture lucencies remain visualized. Mild retropulsion into the canal and mild paravertebral soft tissue thickening/hematoma. Additional osteal lysis midsternal body with a lesion measuring 2.1 x 1.3 cm, sagittal image 69 and axial image 28. IMPRESSION: 1. EXTENSIVE NEW CONSOLIDATION LEFT MID LUNG PROBABLY POST RADIATION THERAPY CHANGE. CLINICALLY CORRE LATE. TRACE LEFT PLEURAL EFFUSION. 2. HOWEVER, THERE IS EVIDENCE FOR RECURRENT AND METASTATIC DISEASE FOLLOWS: 3. NEW LEFT BASILAR MASS MEASURING 3.1 CM, A FEW SCATTERED RIGHT-SIDED PULMONARY NODULES MEASURING UP TO 2.4 CM, NEW 1.6 CM SUBCARINAL LYMPH NODE, HEPATIC METASTASES, APPROXIMATELY 9 LESIONS, LARGEST ME ASURING 7.3 CM AT THE RIGHT HEPATIC DOME, AND A NEW 1.3 CM LEFT ADRENAL NODULE. 4. NEW LYTIC LESION OF THE MID STERNAL BODY AND NEW T11 VERTEBRAL COMPRESSION COLLAPSE, PROBABLE PATH OLOGIC FRACTURE. 5. SOME PATCHY PERIPHERAL GROUNDGLASS CHANGES IN THE RIGHT LUNG ARE NONSPECIFIC. CORRELATE TO EXCLUDE ATYPICAL PNEUMONIA OR INTERSTITIAL PNEUMONITIS. 6. INCIDENTAL: COPD WITH MODERATE TO ADVANCED EMPHYSEMA, PULMONARY ARTERIAL HYPERTENSION, SIGMOID DIV ERTICULOSIS, MODERATE TO LARGE STOOL BURDEN.
== END | disposition home or self-care (01) ==
LOC: RADCTMAIN 08-03 11:04
PROVIDERS: ATTEND Internal Medicine Hematology & Oncology
DX: C34.32 Malignant neoplasm of lower lobe, left bronchus or lung (principal); C78.7 Secondary malignant neoplasm of liver and intrahepatic bile duct; C78.01 Secondary malignant neoplasm of right lung; E27.8 Other specified disorders of adrenal gland
CPT/HCPCS: 71260; 74177; Q9967 ×2

== ENCOUNTER 2021-09-06 12:01 | Inpatient (IN) | payer MEDICARE ==
--- NOTE | 2021-09-06 14:07 | ED ---
General Adult HPI - General Chief complaint: Altered Mental Status Stated complaint: new cancer dx, pain Time Seen by Provider: 09/06/21 13:28 Source: patient Mode of arrival: wheelchair Limitations: no limitations - History of Present Illness Initial comments: Dictation was produced using [employer] dictation software. please excuse any grammatical, word or spelling errors. Chief Complaint: 66-year-old male presents to emergency department for confusion History of Present Illness: Patient is 66-year-old male who presents to the [facility] department for confusion. Allegedly patient was brought to the emergency department on behalf of Dr. Santizo of oncology. He is noted to have increasing confusion and concerns of metastatic lesions to the brain. Patient states he has no complaint at this time. He reports that he lives at home by himself. He states that his son who is in town recently had to fly back home to [place] to t callum care of some things. There is nobody else that can take care of at home. Patient does not feel like he can take care of himself. The ROS documented in this emergency department record has been reviewed and confirmed by me. Those systems with pertinent positive or negative responses have been documented in the HPI. All other systems are other negative and/or noncontributory. PHYSICAL EXAM: General Impression: Alert and oriented x3, not in acute distress HEENT: Normocephalic atraumatic, extra-ocular movements intact, pupils equal and reactive to light bilaterally, mucous membranes moist. Cardiovascular: Heart regular rate and rhythm Chest: Able to complete full sentences, no retractions, no tachypnea Abdomen: abdomen soft, non-tender, non-distended, no organomegaly Musculoskeletal: Pulses present and equal in all extremities, no peripheral edema Motor: no focal deficits noted Neurological: CN II-XII grossly intact, no focal motor or sensory deficits noted Skin: Intact with no visualized rashes Psych: Normal affect and mood ED course: 66-year-old male presents emergency department for concerns by oncologist for altered mental status. Patient believes that he is here for debility. Vital signs upon arrival are within acceptable limits. Chest x-ray shows bilateral opacities concerning for neoplastic versus acute infectious process. Patient [place] hypoxic with the oxygen level 90% upon initial arrival. Is not showing signs of respiratory distress. Blood pressure 95/60. Patient not in any acute respiratory distress however given patient's weakness is concerned of COVID-19. Patient repeat vitals showed 77% on room air with exertion. Placed on supplemental oxygen. Patient schultz virus positive. Limited evaluation obtained. Hemoglobin 8.7. This seems to be lower than his level from September 02 of 9.7. We will continue to monitor. Metabolic panel is unremarkable. Computed tomography scan of the brain shows no acute processes. Patient be admitted for COVID-19, hypoxic respiratory failure. He is given Decadron. Case discussed with Dr. Shepherd. Pulmonology and oncology will be consulted. Patient satting well on nasal cannula. - Related Data Home Medications Medication Instructions Recorded Confirmed Apixaban [Eliquis] 5 mg PO BID 02/28/21 09/06/21 Clopidogrel [Plavix] 75 mg PO DAILY 02/28/21 09/06/21 Furosemide [Lasix] 40 mg PO DAILY 02/28/21 09/06/21 Losartan Potassium [Cozaar] 100 mg PO DAILY 02/28/21 09/06/21 Potassium Chloride [Klor-Con 20] 20 meq PO DAILY 02/28/21 09/06/21 glipiZIDE XL [Glucotrol XL] 10 mg PO BID 02/28/21 09/06/21 Sotalol [Betapace] 120 mg PO BID 03/28/21 09/06/21 Baclofen [Lioresal] 10 mg PO TID 09/06/21 09/06/21 Famotidine [Pepcid] 40 mg PO DAILY 09/06/21 09/06/21 Rosuvastatin Calcium [Crestor] 40 mg PO DAILY 09/06/21 09/06/21 Thiamine [Vitamin B-1] 100 mg PO DAILY 09/06/21 09/06/21 guaiFENesin-DM 100-10MG/5ML 5 - 10 ml PO QID PRN 09/06/21 09/06/21 [Robitussin DM] hydrALAZINE HCL [Apresoline] 50 mg PO BID 09/06/21 09/06/21 oxyCODONE-APAP 10-325MG [Percocet 1 tab PO Q6H PRN 09/06/21 09/06/21 10-325 mg] Previous Rx's Medication Instructions Recorded Diltiazem Cd [Cardizem CD] 180 mg PO DAILY 30 Days #30 03/06/21 cap.er.24h Allergies Allergy/AdvReac Type Severity Reaction Status Date / Time No Known Allergies Allergy Verified 09/06/21 15:22 Review of Systems ROS Statement: Those systems with pertinent positive or pertinent negative responses have been documented in the HPI. ROS Other: All systems not noted in ROS Statement are negative. Past Medical History Past Medical History: Atrial Fibrillation, Cancer, COPD, Diabetes Mellitus, GERD/Reflux, Hypertension Additional Past Medical History / Comment(s): Spot on right lung, stress test scheduled for 03-01-21, lung ca History of Any Multi-Drug Resistant Organisms: None Reported Past Surgical History: Hernia Repair Additional Past Surgical History / Comment(s): hernia x2,fatty tumor removed abdomen, cardiac stent X 2, Past Anesthesia/Blood Transfusion Reactions: No Reported Reaction Past Psychological History: No Psychological Hx Reported Smoking Status: Current every day smoker Past Alcohol Use History: Daily Past Drug Use History: None Reported - Past Family History Mother Family Medical History: Cancer Sister(s) Family Medical History: Cancer General Exam Limitations: no limitations Course Vital Signs 09/06/21 09/06/21 09/06/21 12:08 14:00 15:14 Temperature 98.4 F Pulse Rate 67 59 L 64 Respiratory 18 18 18 Rate Blood Pressure 95/60 99/67 125/72 O2 Sat by Pulse 90 L 94 L 77 L Oximetry 09/06/21 15:16 Temperature Pulse Rate Respiratory Rate Blood Pressure O2 Sat by Pulse 92 L Oximetry Medical Decision Making - Lab Data Result diagrams: 09/06/21 14:04 09/06/21 14:04 Lab Results 09/06/21 09/06/21 09/06/21 Range/Units 13:58 14:04 14:04 WBC 8.7 (3.8-10.6) k/uL RBC 2.73 L (4.30-5.90) m/uL Hgb 8.7 L (13.0-17.5) gm/dL Hct 26.6 L (39.0-53.0) % MCV 97.6 (80.0-100.0) fL MCH 32.0 (25.0-35.0) pg MCHC 32.8 (31.0-37.0) g/dL RDW 17.8 H (11.5-15.5) % Plt Count 273 (150-450) k/uL MPV 7.5 Neutrophils % 81 % Lymphocytes % 8 % Monocytes % 7 % Eosinophils % 2 % Basophils % 0 % Neutrophils # 7.0 (1.3-7.7) k/uL Lymphocytes # 0.7 L (1.0-4.8) k/uL Monocytes # 0.6 (0-1.0) k/uL Eosinophils # 0.1 (0-0.7) k/uL Basophils # 0.0 (0-0.2) k/uL Hypochromasia Moderate Poikilocytosis Slight Anisocytosis Slight Macrocytosis Slight Sodium 132 L (137-145) mmol/L Potassium 4.6 (3.5-5.1) mmol/L Chloride 98 (98-107) mmol/L Carbon Dioxide 26 (22-30) mmol/L Anion Gap 8 mmol/L BUN 20 (9-20) mg/dL Creatinine 0.95 (0.66-1.25) mg/dL Est GFR (CKD-EPI)AfAm >90 (>60 ml/min/1.73 sqM) Est GFR (CKD-EPI)NonAf 82 (>60 ml/min/1.73 sqM) Glucose 54 L (74-99) mg/dL Calcium 10.2 (8.4-10.2) mg/dL Magnesium 2.2 (1.6-2.3) mg/dL Coronavirus (PCR) Detected A (Not Detectd) Disposition Clinical Impression: Coronavirus infection, Respiratory failure with hypoxia Disposition: ADMITTED IP TO THIS [facility] Condition: Critical Referrals: Rodolfo Carnes MD [Primary Care Provider] - 1-2 days
[2021-09-06 14:24] LABS: Anisocytosis Slight; Basophils % (A) 0 %; Eosinophils # (A) 0.1 k/uL (0-0.7); Eosinophils % (A) 2 %; HCT 26.6 % (39.0-53.0); HGB 8.7 gm/dL (13.0-17.5); Hypochromasia Moderate; Lymphocytes # (A) 0.7 k/uL (1.0-4.8); Lymphocytes % (A) 8 %; MCHC 32.8 g/dL (31.0-37.0); MCV 97.6 fL (80.0-100.0); Macrocytosis Slight; Mean Platelet Volume 7.5; Monocytes # (A) 0.6 k/uL (0-1.0); Monocytes % (A) 7 %; Neutrophils % (A) 81 %; Platelet Count 273 k/uL (150-450); Poikilocytosis Slight; RBC 2.73 m/uL (4.30-5.90); RDW 17.8 % (11.5-15.5); WBC 8.7 k/uL (3.8-10.6)
[2021-09-06 14:36] LABS: African American GFR (CKD) >90 (>60 ml/min/1.73 sqM); Anion Gap 8 mmol/L; Blood Urea Nitrogen 20 mg/dL (9-20); Calcium 10.2 mg/dL (8.4-10.2); Carbon Dioxide 26 mmol/L (22-30); Chloride 98 mmol/L (98-107); Glucose 54 mg/dL (74-99); Magnesium 2.2 mg/dL (1.6-2.3); Non-African American GFR(CKD) 82 (>60 ml/min/1.73 sqM); Potassium 4.6 mmol/L (3.5-5.1); Sodium 132 mmol/L (137-145)
[2021-09-06] MEDS ORDERED: HYDROcodone/APAP 10-325MG 1 EACH TAB PO ONE (14:55)
[2021-09-06] MEDS ORDERED: SODIUM CHLORIDE 0.9% 500 ML 500 ML IV STA (14:59)
--- NOTE | 2021-09-06 15:09 | CT ---
EXAMINATION TYPE: CT brain wo con DATE OF EXAM: 09/06/2021 HISTORY: altered mental status, history of lung cancer CT DLP: 1099.4 mGycm. Automated Exposure Control for Dose Reduction was Utilized. TECHNIQUE: CT scan of the head is performed without contrast. COMPARISON: None. FINDINGS: There is no acute intracranial hemorrhage or midline shift identified. There is mild-to-m oderate diffuse ventricular and sulcal prominence with sulcal prominence greatest over the bilateral frontal lobes. There is mild low-attenuation in the periventricular white matter consistent with chr onic small vessel ischemic change. Persistent anterior metopic suture which is normal variant. The gl obes are intact and the visualized sinuses are clear. IMPRESSION: No acute intracranial hemorrhage or midline shift. There is mild to moderate diffuse ce rebral atrophy greatest over bilateral frontal lobes and mild chronic small vessel ischemic change no erika.
[2021-09-06] MEDS ORDERED: DEXAMETHASONE SOD PHOSPHATE 10 MG/ML 1 ML VIAL IV STA (15:19)
[2021-09-06] MEDS ORDERED: NALOXONE 0.4 MG/ML 1 ML VIAL IV PRN (15:29)
--- NOTE | 2021-09-06 15:48 | XR ---
EXAMINATION TYPE: XR chest 1V portable DATE OF EXAM: 09/06/2021 COMPARISON: Chest x-ray April 05, 2021. CT exam from yesterday. HISTORY: History of left lower lung cancer with hypoxia. TECHNIQUE: Single AP portable follow-up right view of the chest is obtained. FINDINGS: The osseous structures are demineralized. Entire lateral right lung base not included. Cande kground chronic emphysematous change redemonstrated. Heart size stable and mildly enlarged. Persisten t left-sided volume loss with mediastinal shift. Worsening left mid to lower lung opacity at site of known neoplasm. Developing right basilar reticulonodular opacity. IMPRESSION: Mild cardiomegaly and chronic emphysematous change with worsening right lower lung and l eft mid lower lung opacities could reflect neoplastic progression and/or developing acute infectious process on background left lower lung neoplasm. Correlate clinically.
[2021-09-06] MEDS: SODIUM CHLORIDE 0.9% 1,000 ML IV SCH (15:53)
--- NOTE | 2021-09-06 20:43 | HP ---
HISTORY AND PHYSICAL CHIEF COMPLAINT: Change in mental status, shortness of breath and cough and Covid 19. HISTORY OF PRESENT ILLNESS: This 66-year-old gentleman with a past medical history of atrial fibrillation, history of COPD, diabetes, GERD, hypertension, being followed by Dr. Carnes in the outpatient setting, not feeling well over the past several days. The patient had some shortness of breath and cough and the patient had some increasing confusion and suspicion of metastatic lesion to the brain was considered and the patient was living at home by himself and the patient was admitted to the hospital for further evaluation and treatment. In the emergency room, the white count was 8.2, hemoglobin is 8.7, sodium is 130, Covid [address] of the brain done in the ER which I personally reviewed showed no acute abnormalities, but some cerebral atrophy was noted. Chest x- ray showed extensive bilateral infiltrates also. The patient was admitted to the hospital further recommendations to follow. There is no history of fever, rigors or chills. PAST MEDICAL HISTORY: History of atrial fibrillation, history of COPD, GERD, DJD, history of lung cancer possibly. HOME MEDICATIONS: Reviewed and include: Oxycodone, hydralazine, Robitussin, glipizide, thiamin, sotalol, potassium chloride. Doses and other medications reviewed. ALLERGIES: None. FAMILY HISTORY: History of cancer in the family. SOCIAL HISTORY: History of smoking, history of alcohol daily use. REVIEW OF SYSTEMS: ENT: As mentioned earlier. CARDIOVASCULAR as mentioned earlier. RESPIRATORY: As mentioned earlier. GI: No nausea or vomiting. : No dysuria. NERVOUS SYSTEM: As mentioned earlier. ALLERGY/IMMUNOLOGY: No asthma or hayfever. MUSCULOSKELETAL: As mentioned earlier. HEMATOLOGY/ONCOLOGY: No history of anemia. ENDOCRINE: As mentioned earlier. CONSTITUTIONAL: As mentioned earlier. DERMATOLOGY: Negative. RHEUMATOLOGY: Negative. PSYCHIATRY as mentioned earlier. PHYSICAL EXAMINATION: Patient is alert, oriented x3. The pulse is 59, blood pressure 99/60. Respiration 18, temperature 98.4, pulse ox 94% on 2 L. HEENT: Conjunctivae normal. NECK: No JVD. CARDIOVASCULAR: S1, S2 muffled. RESPIRATORY: Breath sounds diminished in the bases. Bilateral scattered rhonchi and crackles. ABDOMEN: Soft, nontender. No mass palpable. LEGS are no edema. No swelling. NERVOUS SYSTEM: Higher functions as mentioned earlier. Moves all four limbs. No focal deficits. LYMPHATICS: No lymph nodes palpable in the neck, axillae or groin. SKIN: No ulcer, no rashes and no bleeding. JOINTS: No active deforming arthropathy. LABS: WBC 8.6. Other labs noted. CT scan, chest x-ray reviewed. ASSESSMENT: 1. Change in mental status, acute metabolic encephalopathy multifactorial. 2. Acute Covid 19 infection as well. 3. Acute Covid 19 bilateral interstitial pneumonia possibly. 4. History of lung cancer with possible METS. 5. Hyponatremia. 6. Anemia, normocytic. 7. History of chronic obstructive pulmonary disease. 8. Atrial fibrillation. 9. Diabetes mellitus, type 2. 10.Gastroesophageal reflux disease. 11.Hypertension. 12.History of hernia repair. 13.History of nicotine dependence. 14.History of ETOH. 15.FULL CODE. RECOMMENDATIONS AND DISCUSSION: This 66-year-old gentleman presented with multiple complex medical issues, we will monitor the patient closely. Continue the current medications. Resume the home medications once they are reconciled. Otherwise, we will consult Hematology/Oncology and Pulmonary. Infectious Disease also will be consulted. Otherwise, I would also recommend a D-dimer evaluation. If the D-dimer is positive, definitely obtain a CT angio of the chest. The CT scan of the brain noted. Prognosis guarded because of multiple complex medical issues. Further recommendations to follow. A copy of dictation is being forwarded to Dr. Carnes who is the primary physician. MMKAYKAY / VIDHIN: [id number] / [id number]
--- NOTE | 2021-09-06 20:52 | CT ---
EXAMINATION TYPE: CT chest angio for PE DATE OF EXAM: 09/06/2021 COMPARISON: Yesterday HISTORY: eleavted d-dimer CT DLP: 366.4 mGycm Automated exposure control for dose reduction was used. CONTRAST: Performed with IV Contrast, patient injected with 100 mL of Isovue 300. There are Three-D postprocessed images. There is extensive airspace infiltrate in the left lung in the left lower lobe and to a lesser extent the left upper lobe. There is emphysema. Right lung is relatively clear. There is a rounded 2 cm non calcified masslike density in the posterior right lower lobe. There are scattered small nodular densi ties in the right lung up to 8 mm in diameter. Thoracic aorta is atheromatous. Heart is enlarged. The re is no evidence of filling defect in the pulmonary arteries. There is no mediastinal adenopathy. Th oracic aorta is intact. There is T11 anterior wedging 35%. Unchanged. IMPRESSION: No evidence of pulmonary embolism. There is extensive consolidation in the left lower lobe that is in creased compared to CT scan yesterday. There is a rounded 2 cm mass right lower lobe suspicious for t umor. There are other smaller noncalcified nodules in the right lung up to 8 mm also suspicious for t umor.
[2021-09-06] MEDS: APIXABAN 5 MG TAB PO SCH (22:19)
[2021-09-06] MEDS: hydrALAZINE HCL 50 MG TAB PO SCH (22:19)
[2021-09-06] MEDS: BACLOFEN 10 MG TAB PO SCH (22:19)
[2021-09-06] MEDS: glipiZIDE 10 MG TAB PO SCH (22:19)
[2021-09-06 22:32] LABS: Glucose,Whole Blood 134 mg/dL (75-99)
[2021-09-06] MEDS: SOTALOL 120 MG TAB PO SCH (22:33)
[2021-09-07] MEDS: NICOTINE 21MG/24HR PATCH TRANSDERM SCH ×2 (02:25→07:43)
[2021-09-07] MEDS ORDERED: HALOPERIDOL LACTATE 5 MG/ML 1 ML VIAL IM PRN (04:06)
[2021-09-07] MEDS: oxyCODONE-APAP 10-325MG 1 EACH TAB PO PRN (04:57)
[2021-09-07 07:10] LABS: Glucose,Whole Blood 111 mg/dL (75-99)
[2021-09-07] MEDS: glipiZIDE 10 MG TAB PO SCH ×3 (07:37→21:49)
[2021-09-07] MEDS: ATORVASTATIN 20 MG TAB PO SCH (07:42)
[2021-09-07] MEDS: LOSARTAN 50 MG TAB PO SCH (07:42)
[2021-09-07] MEDS: POTASSIUM CHLORIDE ER 20 MEQ TAB.ER PO SCH (07:42)
[2021-09-07] MEDS: QUEtiapine 25 MG TAB PO SCH ×2 (07:42→22:11)
[2021-09-07] MEDS: THIAMINE 100 MG TAB PO SCH (07:42)
[2021-09-07] MEDS: hydrALAZINE HCL 50 MG TAB PO SCH ×2 (07:42→22:11)
[2021-09-07] MEDS: APIXABAN 5 MG TAB PO SCH ×2 (07:42→22:10)
[2021-09-07] MEDS: BACLOFEN 10 MG TAB PO SCH ×3 (07:42→22:11)
[2021-09-07] MEDS: CLOPIDOGREL 75 MG TAB PO SCH (07:42)
[2021-09-07] MEDS: DILTIAZEM CD 180 MG CAP.ER.24H PO SCH (07:43)
[2021-09-07] MEDS: SOTALOL 120 MG TAB PO SCH ×2 (07:43→22:10)
[2021-09-07 09:14] LABS: Basophils # (A) 0.01 X 10*3/uL (0.00-0.10); Basophils % (A) 0.2 %; Eosinophils # (A) 0 X 10*3/uL (0.04-0.35); Eosinophils % (A) 0 %; HCT 24.5 % (39.6-50.0); HGB 7.5 g/dL (13.0-17.0); Lymphocytes # (A) 0.47 X 10*3/uL (0.90-5.00); Lymphocytes % (A) 7.7 %; MCH 30.4 pg (27.0-32.0); MCHC 30.6 g/dL (32.0-37.0); MCV 99.2 fL (80.0-97.0); Monocytes # (A) 0.24 X 10*3/uL (0.20-1.00); Monocytes % (A) 3.9 %; Neutrophils # (A) 5.18 X 10*3/uL (1.80-7.70); Neutrophils % (A) 85.1 %; Platelet Count 224 X 10*3/uL (140-440); RBC 2.47 X 10*6/uL (4.40-5.60); RDW 18.5 % (11.5-14.5); WBC 6.09 X 10*3/uL (4.50-10.00)
[2021-09-07 09:19] LABS: African American GFR (CKD) 89.2 (60.0-200.0); Anion Gap 14.3 mmol/L (10.00-18.00); BUN/Creat Ratio 17.9 Ratio (12.00-20.00); Blood Urea Nitrogen 17.9 mg/dL (9.0-27.0); Calcium 9.8 mg/dL (8.7-10.3); Carbon Dioxide 19.7 mmol/L (20.0-27.5); Potassium 4.5 mmol/L (3.5-5.5)
--- NOTE | 2021-09-07 10:37 | P.CONS ---
History of Present Illness - Reason for Consult Consult date: 09/07/21 mental Status Changes and Lung Cancer Requesting physician: Sushant Tatum - Chief Complaint mental status changes - History of Present Illness Mr. Jason is a patient who follows with Dr. Peck for Stage 3 NSCLCA, he recently completed 3 cycles of cisplatin and Almta in June 2021, he was scheduled for his restaging CT scans to determine the next plan in his care, although he presented to hospital with mental status changes at the direction of Dr. Santizo (radiation onc). During initial work-up on presentation to ER he was tested positive for COVID infection. Review of Systems All systems: negative Constitutional: Reports as per HPI Past Medical History Past Medical History: Atrial Fibrillation, Cancer, COPD, Diabetes Mellitus, GERD/Reflux, Hypertension Additional Past Medical History / Comment(s): Spot on right lung, stress test scheduled for 03-01-21, lung ca History of Any Multi-Drug Resistant Organisms: None Reported Past Surgical History: Hernia Repair Additional Past Surgical History / Comment(s): hernia x2,fatty tumor removed abdomen, cardiac stent X 2, Past Anesthesia/Blood Transfusion Reactions: No Reported Reaction Smoking Status: Current every day smoker - Past Family History Mother Family Medical History: Cancer Sister(s) Family Medical History: Cancer Medications and Allergies Home Medications Medication Instructions Recorded Confirmed Type Apixaban [Eliquis] 5 mg PO BID 02/28/21 09/06/21 History Clopidogrel [Plavix] 75 mg PO DAILY 02/28/21 09/06/21 History Furosemide [Lasix] 40 mg PO DAILY 02/28/21 09/06/21 History Losartan Potassium [Cozaar] 100 mg PO DAILY 02/28/21 09/06/21 History Potassium Chloride [Klor-Con 20] 20 meq PO DAILY 02/28/21 09/06/21 History glipiZIDE XL [Glucotrol XL] 10 mg PO BID 02/28/21 09/06/21 History Diltiazem Cd [Cardizem CD] 180 mg PO DAILY 30 Days #30 03/06/21 09/06/21 Rx cap.er.24h Sotalol [Betapace] 120 mg PO BID 03/28/21 09/06/21 History Baclofen [Lioresal] 10 mg PO TID 09/06/21 09/06/21 History Famotidine [Pepcid] 40 mg PO DAILY 09/06/21 09/06/21 History Rosuvastatin Calcium [Crestor] 40 mg PO DAILY 09/06/21 09/06/21 History Thiamine [Vitamin B-1] 100 mg PO DAILY 09/06/21 09/06/21 History guaiFENesin-DM 100-10MG/5ML 5 - 10 ml PO QID PRN 09/06/21 09/06/21 History [Robitussin DM] hydrALAZINE HCL [Apresoline] 50 mg PO BID 09/06/21 09/06/21 History oxyCODONE-APAP 10-325MG [Percocet 1 tab PO Q6H PRN 09/06/21 09/06/21 History 10-325 mg] Allergies Allergy/AdvReac Type Severity Reaction Status Date / Time No Known Allergies Allergy Verified 09/06/21 15:22 Physical Exam Vitals: Vital Signs Temp Pulse Pulse Resp BP BP Pulse Ox 09/07/21 05:25 98.0 F 71 20 124/68 93 L 09/07/21 00:00 18 09/06/21 23:58 98.7 F 76 18 123/77 93 L 09/06/21 22:21 97.9 F 72 26 H 103/68 90 L 09/06/21 20:00 93 L 09/06/21 18:20 67 18 109/61 89 L 09/06/21 15:16 92 L 09/06/21 15:14 64 18 125/72 77 L 09/06/21 14:00 59 L 18 99/67 94 L 09/06/21 12:08 98.4 F 67 18 95/60 90 L Intake and Output 09/06/21 09/07/21 09/07/21 22:59 06:59 14:59 Output Total 500 Balance -500 Output: Urine 500 Other: Voiding Method Urinal Diaper # Bowel Movements 1 Weight 76.204 kg - Constitutional General appearance: cooperative, no acute distress - EENT Eyes: EOMI ENT: NA/AT - Respiratory Respiratory: bilateral: diminished, rhonchi - Cardiovascular Rhythm: regularly irregular - Gastrointestinal General gastrointestinal: soft - Integumentary Integumentary: pale - Musculoskeletal Musculoskeletal: generalized weakness, strength equal bilaterally Results CBC & Chem 7: 09/07/21 05:52 09/07/21 05:52 Labs: Abnormal Lab Results - Last 24 Hours (Table) 09/06/21 09/06/21 09/06/21 Range/Units 13:58 14:04 14:04 RBC 2.73 L (4.30-5.90) m/uL Hgb 8.7 L (13.0-17.5) gm/dL Hct 26.6 L (39.0-53.0) % MCV (80.0-97.0) fL MCHC (32.0-37.0) g/dL RDW 17.8 H (11.5-15.5) % Immature Gran # (0.00-0.04) X 10*3/uL Lymphocytes # 0.7 L (1.0-4.8) k/uL Eosinophils # (0.04-0.35) X 10*3/uL D-Dimer (<0.60) mg/L FEU Sodium 132 L (137-145) mmol/L Carbon Dioxide (20.0-27.5) mmol/L Glucose 54 L (74-99) mg/dL POC Glucose (mg/dL) (75-99) mg/dL Coronavirus (PCR) Detected A (Not Detectd) 09/06/21 09/06/21 09/07/21 Range/Units 19:19 22:31 05:52 RBC 2.47 L (4.30-5.90) m/uL Hgb 7.5 L (13.0-17.5) gm/dL Hct 24.5 L (39.0-53.0) % MCV 99.2 H (80.0-97.0) fL MCHC 30.6 L (32.0-37.0) g/dL RDW 18.5 H (11.5-15.5) % Immature Gran # 0.19 H (0.00-0.04) X 10*3/uL Lymphocytes # 0.47 L (1.0-4.8) k/uL Eosinophils # 0 L (0.04-0.35) X 10*3/uL D-Dimer 3.46 H (<0.60) mg/L FEU Sodium (137-145) mmol/L Carbon Dioxide (20.0-27.5) mmol/L Glucose (74-99) mg/dL POC Glucose (mg/dL) 134 H (75-99) mg/dL Coronavirus (PCR) (Not Detectd) 09/07/21 09/07/21 Range/Units 05:52 07:09 RBC (4.30-5.90) m/uL Hgb (13.0-17.5) gm/dL Hct (39.0-53.0) % MCV (80.0-97.0) fL MCHC (32.0-37.0) g/dL RDW (11.5-15.5) % Immature Gran # (0.00-0.04) X 10*3/uL Lymphocytes # (1.0-4.8) k/uL Eosinophils # (0.04-0.35) X 10*3/uL D-Dimer (<0.60) mg/L FEU Sodium 133 L (137-145) mmol/L Carbon Dioxide 19.7 L (20.0-27.5) mmol/L Glucose 118 H (74-99) mg/dL POC Glucose (mg/dL) 111 H (75-99) mg/dL Coronavirus (PCR) (Not Detectd) Assessment and Plan (1) COVID-19 Narrative/Plan: Pulm is following Current Visit: Yes Status: Acute Code(s): U07.1 - COVID-19 SNOMED Code(s): 959855019 (2) Non-small cell lung cancer (NSCLC) Narrative/Plan: - Status Post 3 cycles of cisplatin and Almta/Radiation - to follow - Recent imaging with suspicion of progression although with active COVID infection unable to determine definitively, await resolution of active infection and recheck imaging lungs 2-3 months Current Visit: Yes Status: Acute Code(s): C34.90 - MALIGNANT NEOPLASM OF UNSP PART OF UNSP BRONCHUS OR LUNG SNOMED Code(s): 894654368 (3) Mental status alteration Narrative/Plan: - Probable infectious/inflamatory encephalopathy - Will complete full infectious work-up and check hepatic function - MRI of the brain for possible metastatic disease Current Visit: Yes Status: Acute Code(s): R41.82 - ALTERED MENTAL STATUS, UNSPECIFIED SNOMED Code(s): 199469607 (4) Macrocytic anemia Narrative/Plan: Work-up ordered Current Visit: Yes Status: Acute Code(s): D53.9 - NUTRITIONAL ANEMIA, UNSPECIFIED SNOMED Code(s): 73700249 Plan: Conitnue supportive care and daily CBC
[2021-09-07 11:02] LABS: Albumin 2.6 g/dL (3.5-5.0); Albumin/Globulin Ratio 0.9; Bilirubin,Unconjugated 0.1 mg/dL (0.0-1.1); Globulin 2.8 g/dL; Total Bilirubin 0.6 mg/dL (0.2-1.3); Total Protein 5.4 g/dL (6.3-8.2)
[2021-09-07 11:55] LABS: Glucose,Whole Blood 217 mg/dL (75-99)
[2021-09-07 14:50] LABS: Reticulocyte % 3.42 % (0.10-1.80)
--- NOTE | 2021-09-07 16:02 | P.CNPUL ---
History of Present Illness Consult date: 09/07/21 Requesting physician: Azael Shepherd Reason for consult: dyspnea, hypoxemia, abnormal CXR/CT Chief complaint: Altered mental status History of present illness: This is a very pleasant 66-year-old male patient with known history of chronic obstructive pulmonary disease with FEV1 value of 86% of predicted, chronic and ongoing tobacco dependence greater than 50 years, atrial fibrillation anticoagul ated with Eliquis, diabetes mellitus, gastroesophageal reflux disease, previous alcohol abuse, congestive heart failure. He was diagnosed with stage III non- small cell lung cancer in March 2021. He was last seen in our office 04/12/2021 following the biopsy. He was referred to oncology. He had completed 3 cycles of cisplatin and Almta/radiation in June 2021. He had been seen yesterday by radiation oncology and was felt to have had some altered mental status and was referred here to the emergency room for the same. He did test positive for COVID-19 infection. There is also concern regarding possible brain metastasis. Computed tomography scan of the brain revealed no acute intracranial hemorrhage or midline shift. There is mild to moderate diffuse cerebral atrophy greatest over bilateral frontal lobes and mild chronic small vessel ischemic changes. No masses or lesions detected. MRI of the brain is pending. Chest x-ray reveals mild cardiomegaly and chronic emphysematous changes with worsening right lower lung and left mid lower lung opacities which could reflect neoplastic progression along with developing acute infectious process on background left lower lung neoplasm. Possible COVID-[address] angiogram ruled out pulmonary embolism. Again extensive consolidation of the left lower lobe with increased compared to a computed tomography scan done one day prior. There is rounded 2 cm mass in the right lower lobe suspicious for tumor. There are other smaller noncalcified nostrils in the right lung up to 8 mm also suspicious for tumor. White count 6.0. Hemoglobin 7.5. Platelet count 224. Lymphocytes 0.47. Sodium 133. Potassium 4.5. Creatinine 1.0. Glucose 118. AST 55. ALT 18. Alk phos 172. Patient is seen today in consultation on the regular medical floor. He is currently resting comfortably in bed. He is difficult to arouse. He did have some restlessness and was given Haldol earlier this morning. He is requiring 6 L high flow nasal cannula to maintain O2 saturation in the low 90s. He is afebrile. Hemodynamically stable. He's been initiated on cefazolin empirically. NicoDerm patch in place. Anticoagulated with Eliquis. Review of Systems ROS unobtainable: due to mental status Past Medical History Past Medical History: Atrial Fibrillation, Cancer, COPD, Diabetes Mellitus, GERD/Reflux, Hypertension Additional Past Medical History / Comment(s): recent scans showing cancer to lungs, liver, and bone which is recurrent. pt was recently admitted for covid for a few weeks in august. stress test scheduled for 03-01-21, lung ca. Pt lives alone and his neighbors help. son lives in [place]. History of Any Multi-Drug Resistant Organisms: None Reported Past Surgical History: Hernia Repair Additional Past Surgical History / Comment(s): hernia x2,fatty tumor removed abdomen, cardiac stent X 2, Past Anesthesia/Blood Transfusion Reactions: No Reported Reaction Past Psychological History: No Psychological Hx Reported Smoking Status: Current every day smoker Past Alcohol Use History: Daily Additional Past Alcohol Use History / Comment(s): started smoking at age 16, approx. 1ppd Past Drug Use History: None Reported - Past Family History Mother Family Medical History: Cancer Sister(s) Family Medical History: Cancer Medications and Allergies Home Medications Medication Instructions Recorded Confirmed Type Apixaban [Eliquis] 5 mg PO BID 02/28/21 09/06/21 History Clopidogrel [Plavix] 75 mg PO DAILY 02/28/21 09/06/21 History Furosemide [Lasix] 40 mg PO DAILY 02/28/21 09/06/21 History Losartan Potassium [Cozaar] 100 mg PO DAILY 02/28/21 09/06/21 History Potassium Chloride [Klor-Con 20] 20 meq PO DAILY 02/28/21 09/06/21 History glipiZIDE XL [Glucotrol XL] 10 mg PO BID 02/28/21 09/06/21 History Diltiazem Cd [Cardizem CD] 180 mg PO DAILY 30 Days #30 03/06/21 09/06/21 Rx cap.er.24h Sotalol [Betapace] 120 mg PO BID 03/28/21 09/06/21 History Baclofen [Lioresal] 10 mg PO TID 09/06/21 09/06/21 History Famotidine [Pepcid] 40 mg PO DAILY 09/06/21 09/06/21 History Rosuvastatin Calcium [Crestor] 40 mg PO DAILY 09/06/21 09/06/21 History Thiamine [Vitamin B-1] 100 mg PO DAILY 09/06/21 09/06/21 History guaiFENesin-DM 100-10MG/5ML 5 - 10 ml PO QID PRN 09/06/21 09/06/21 History [Robitussin DM] hydrALAZINE HCL [Apresoline] 50 mg PO BID 09/06/21 09/06/21 History oxyCODONE-APAP 10-325MG [Percocet 1 tab PO Q6H PRN 09/06/21 09/06/21 History 10-325 mg] Allergies Allergy/AdvReac Type Severity Reaction Status Date / Time No Known Allergies Allergy Verified 09/06/21 15:22 Physical Exam Vitals: Vital Signs Temp Pulse Pulse Resp BP BP Pulse Ox 09/07/21 15:09 97.8 F 87 21 131/79 94 L 09/07/21 10:56 98.4 F 64 19 95/55 98 09/07/21 05:25 98.0 F 71 20 124/68 93 L 09/07/21 00:00 18 09/06/21 23:58 98.7 F 76 18 123/77 93 L 09/06/21 22:21 97.9 F 72 26 H 103/68 90 L 09/06/21 20:00 93 L 09/06/21 18:20 67 18 109/61 89 L Intake and Output 09/07/21 09/07/21 09/07/21 06:59 14:59 22:59 Output Total 500 Balance -500 Output: Urine 500 Other: Voiding Method Urinal Diaper # Voids 2 # Bowel Movements 1 Weight 76.204 kg GENERAL EXAM: Arousable, frail 66-year-old gentleman, on 6 L nasal cannula, fairly comfortable in no apparent distress. HEAD: Normocephalic. EYES: Normal reaction of pupils, equal size. NOSE: Clear with pink turbinates. THROAT: No erythema or exudates. NECK: No masses, no JVD. CHEST: No chest wall deformity. LUNGS: Equal air entry with scattered rhonchi, crackles in bases, diminished in the left lung base CVS: S1 and S2 normal with no audible murmur, regular rhythm. ABDOMEN: No hepatosplenomegaly, normal bowel sounds, no guarding or rigidity. SPINE: No scoliosis or deformity SKIN: Multiple areas of ecchymosis CENTRAL NERVOUS SYSTEM: Altered and difficult to assess, tone is normal in all 4 extremities. EXTREMITIES: There is no peripheral edema. No clubbing, no cyanosis. Peripheral pulses are intact. Results - Laboratory Findings CBC and BMP: 09/07/21 05:52 09/07/21 05:52 PT/INR, D-dimer D-Dimer 3.46 mg/L FEU (<0.60) H 09/06/21 19:19 Abnormal lab findings: Abnormal Labs 09/06/21 09/06/21 09/06/21 13:58 14:04 14:04 RBC 2.73 L Hgb 8.7 L Hct 26.6 L MCV MCHC RDW 17.8 H Immature Gran # Lymphocytes # 0.7 L Eosinophils # Retic Count D-Dimer Sodium 132 L Carbon Dioxide Glucose 54 L POC Glucose (mg/dL) Alkaline Phosphatase Total Protein Albumin Coronavirus (PCR) Detected A 09/06/21 09/06/21 09/07/21 19:19 22:31 05:52 RBC 2.47 L Hgb 7.5 L Hct 24.5 L MCV 99.2 H MCHC 30.6 L RDW 18.5 H Immature Gran # 0.19 H Lymphocytes # 0.47 L Eosinophils # 0 L Retic Count D-Dimer 3.46 H Sodium Carbon Dioxide Glucose POC Glucose (mg/dL) 134 H Alkaline Phosphatase Total Protein Albumin Coronavirus (PCR) 09/07/21 09/07/21 09/07/21 05:52 07:09 10:24 RBC Hgb Hct MCV MCHC RDW Immature Gran # Lymphocytes # Eosinophils # Retic Count 3.42 H D-Dimer Sodium 133 L Carbon Dioxide 19.7 L Glucose 118 H POC Glucose (mg/dL) 111 H Alkaline Phosphatase Total Protein Albumin Coronavirus (PCR) 09/07/21 09/07/21 10:24 11:54 RBC Hgb Hct MCV MCHC RDW Immature Gran # Lymphocytes # Eosinophils # Retic Count D-Dimer Sodium Carbon Dioxide Glucose POC Glucose (mg/dL) 217 H Alkaline Phosphatase 172 H Total Protein 5.4 L Albumin 2.6 L Coronavirus (PCR) - Diagnostic Findings Chest x-ray: image reviewed CT scan - chest: image reviewed Assessment and Plan Assessment: 1 Altered mental status of unclear etiology. Possibly related to metastatic lung cancer to the brain. MRI is pending. 2 Stage III non-small cell lung cancer diagnosed in March 2021. Completed 3 cycles of cisplatin and Almta/radiation in June 2021 3 Acute CoVID infection 4 Atrial fibrillation, anticoagulated with Eliquis 5 Diabetes mellitus 6 Chronic and ongoing tobacco dependence of greater than 50 years 7 Coronary artery disease with previous stent placement 2. 8 Hyperlipidemia 9 History of alcohol abuse 10 Hypertension Plan: The patient was seen and evaluated Chest x-ray, CAT scan and labs reviewed Difficult to exclude progression versus COVID-19 pneumonia MRI of the brain is pending Remains anticoagulated with Eliquis Initiate Decadron, vitamin supplements Obtain a pro-calcitonin Obtain inflammatory markers Currently on cefazolin Prognosis remains guarded Titrate the FiO2 as tolerated We will continue to follow and make further recommendations based on his clinical status I, the cosigning physician, performed a history & physical examination of the patient. Lungs sounds with crackles in the posterior bases, few scattered rhonchi, diminished left lung base. Maintaining O2 saturations in the 90s on 6 L/m per nasal cannula. I discussed the assessment and plan of care with my nurse practitioner, Viola Salinas. I attest to the above consultation as dictated by her. Time with Patient: Greater than 30
[2021-09-07] MEDS: SODIUM CHLORIDE 0.9% 1,000 ML IV SCH (16:05)
--- NOTE | 2021-09-07 16:26 | P.CONS ---
History of Present Illness - Reason for Consult Consult date: 09/07/20 recurrent cancer, altered mentation Requesting physician: Jan Peck - Chief Complaint confusion - History of Present Illness The patient is a 66 year old male presenting with a stage IIIA (cT2, N2, M0) poorly differentiated adenocarcinoma of the left lower lung. He completed a course of chemoradiation under the care of Dr. Juárez on 06/30/2021. The patient was hospitalized for nearly 2 weeks between [facility] and [facility] from early to mid August. He was positive for Covid at the time, as well as atrial fibrillation with RVR. He now presents with evidence based on CT from 09/05/21 of metastatic disease involving the liver, lungs and bone. This has not been biopsied as of yet. The patient was seen in radiation oncology clinic on September 06, and he was found to have confusion and visual hallucinations, which prompted referral to the emergency room and admission. Since his hospitalization, the patient underwent a CT scan of the head without contrast which was unremarkable. A subsequent CTA of the chest showed no evidence of pulmonary embolism, however there was increasing consolidation within the left lower lung compared even to the CT scan done one day prior. The patient is requiring 6 L of oxygen, and continues to be confused at this time. Per nursing, he is attempting to get out of bed. The patient's son had been helping care for him for the past couple of weeks, but he had to travel back to [place] recently. The patient had been living independently until recently. Review of Systems ROS unobtainable: due to mental status Past Medical History Past Medical History: Atrial Fibrillation, Cancer, COPD, Diabetes Mellitus, GERD/Reflux, Hypertension Additional Past Medical History / Comment(s): recent scans showing cancer to lungs, liver, and bone which is recurrent. pt was recently admitted for covid for a few weeks in august. stress test scheduled for 03-01-21, lung ca. Pt lives alone and his neighbors help. son lives in [place]. History of Any Multi-Drug Resistant Organisms: None Reported Past Surgical History: Hernia Repair Additional Past Surgical History / Comment(s): hernia x2,fatty tumor removed abd omen, cardiac stent X 2, Past Anesthesia/Blood Transfusion Reactions: No Reported Reaction Past Psychological History: No Psychological Hx Reported Smoking Status: Current every day smoker Past Alcohol Use History: Daily Additional Past Alcohol Use History / Comment(s): started smoking at age 16, approx. 1ppd Past Drug Use History: None Reported - Past Family History Mother Family Medical History: Cancer Sister(s) Family Medical History: Cancer Medications and Allergies Home Medications Medication Instructions Recorded Confirmed Type Apixaban [Eliquis] 5 mg PO BID 02/28/21 09/06/21 History Clopidogrel [Plavix] 75 mg PO DAILY 02/28/21 09/06/21 History Furosemide [Lasix] 40 mg PO DAILY 02/28/21 09/06/21 History Losartan Potassium [Cozaar] 100 mg PO DAILY 02/28/21 09/06/21 History Potassium Chloride [Klor-Con 20] 20 meq PO DAILY 02/28/21 09/06/21 History glipiZIDE XL [Glucotrol XL] 10 mg PO BID 02/28/21 09/06/21 History Diltiazem Cd [Cardizem CD] 180 mg PO DAILY 30 Days #30 03/06/21 09/06/21 Rx cap.er.24h Sotalol [Betapace] 120 mg PO BID 03/28/21 09/06/21 History Baclofen [Lioresal] 10 mg PO TID 09/06/21 09/06/21 History Famotidine [Pepcid] 40 mg PO DAILY 09/06/21 09/06/21 History Rosuvastatin Calcium [Crestor] 40 mg PO DAILY 09/06/21 09/06/21 History Thiamine [Vitamin B-1] 100 mg PO DAILY 09/06/21 09/06/21 History guaiFENesin-DM 100-10MG/5ML 5 - 10 ml PO QID PRN 09/06/21 09/06/21 History [Robitussin DM] hydrALAZINE HCL [Apresoline] 50 mg PO BID 09/06/21 09/06/21 History oxyCODONE-APAP 10-325MG [Percocet 1 tab PO Q6H PRN 09/06/21 09/06/21 History 10-325 mg] Allergies Allergy/AdvReac Type Severity Reaction Status Date / Time No Known Allergies Allergy Verified 09/06/21 15:22 Physical Exam Vitals: Vital Signs Temp Pulse Pulse Resp BP BP Pulse Ox 09/07/21 15:09 97.8 F 87 21 131/79 94 L 09/07/21 10:56 98.4 F 64 19 95/55 98 09/07/21 05:25 98.0 F 71 20 124/68 93 L 09/07/21 00:00 18 09/06/21 23:58 98.7 F 76 18 123/77 93 L 09/06/21 22:21 97.9 F 72 26 H 103/68 90 L 09/06/21 20:00 93 L 09/06/21 18:20 67 18 109/61 89 L Intake and Output 09/07/21 09/07/21 09/07/21 06:59 14:59 22:59 Output Total 500 Balance -500 Output: Urine 500 Other: Voiding Method Urinal Diaper # Voids 2 # Bowel Movements 1 Weight 76.204 kg - Constitutional General appearance: disheveled, no acute distress - EENT Eyes: EOMI, PERRLA ENT: NA/AT - Neck Neck: no lymphadenopathy - Integumentary Integumentary: no calor - Neurologic Neurologic: CNII-XII intact - Psychiatric Psychiatric: no A&O x's 3 (Unaware of hospital or date/year), no intact judgment & insight Results CBC & Chem 7: 09/07/21 05:52 09/07/21 05:52 Labs: Abnormal Lab Results - Last 24 Hours (Table) 09/06/21 09/06/21 09/07/21 Range/Units 19:19 22:31 05:52 RBC 2.47 L (4.40-5.60) X 10*6/uL Hgb 7.5 L (13.0-17.0) g/dL Hct 24.5 L (39.6-50.0) % MCV 99.2 H (80.0-97.0) fL MCHC 30.6 L (32.0-37.0) g/dL RDW 18.5 H (11.5-14.5) % Immature Gran # 0.19 H (0.00-0.04) X 10*3/uL Lymphocytes # 0.47 L (0.90-5.00) X 10*3/uL Eosinophils # 0 L (0.04-0.35) X 10*3/uL Retic Count (0.10-1.80) % Haptoglobin (31.2-198.0) mg/dL D-Dimer 3.46 H (<0.60) mg/L FEU Sodium (135-145) mmol/L Carbon Dioxide (20.0-27.5) mmol/L Glucose (70-110) mg/dL POC Glucose (mg/dL) 134 H (75-99) mg/dL Alkaline Phosphatase (38-126) U/L Total Protein (6.3-8.2) g/dL Albumin (3.5-5.0) g/dL 09/07/21 09/07/21 09/07/21 Range/Units 05:52 07:09 10:24 RBC (4.40-5.60) X 10*6/uL Hgb (13.0-17.0) g/dL Hct (39.6-50.0) % MCV (80.0-97.0) fL MCHC (32.0-37.0) g/dL RDW (11.5-14.5) % Immature Gran # (0.00-0.04) X 10*3/uL Lymphocytes # (0.90-5.00) X 10*3/uL Eosinophils # (0.04-0.35) X 10*3/uL Retic Count 3.42 H (0.10-1.80) % Haptoglobin (31.2-198.0) mg/dL D-Dimer (<0.60) mg/L FEU Sodium 133 L (135-145) mmol/L Carbon Dioxide 19.7 L (20.0-27.5) mmol/L Glucose 118 H (70-110) mg/dL POC Glucose (mg/dL) 111 H (75-99) mg/dL Alkaline Phosphatase (38-126) U/L Total Protein (6.3-8.2) g/dL Albumin (3.5-5.0) g/dL 09/07/21 09/07/21 09/07/21 Range/Units 10:24 10:24 11:54 RBC (4.40-5.60) X 10*6/uL Hgb (13.0-17.0) g/dL Hct (39.6-50.0) % MCV (80.0-97.0) fL MCHC (32.0-37.0) g/dL RDW (11.5-14.5) % Immature Gran # (0.00-0.04) X 10*3/uL Lymphocytes # (0.90-5.00) X 10*3/uL Eosinophils # (0.04-0.35) X 10*3/uL Retic Count (0.10-1.80) % Haptoglobin 384.0 H (31.2-198.0) mg/dL D-Dimer (<0.60) mg/L FEU Sodium (135-145) mmol/L Carbon Dioxide (20.0-27.5) mmol/L Glucose (70-110) mg/dL POC Glucose (mg/dL) 217 H (75-99) mg/dL Alkaline Phosphatase 172 H (38-126) U/L Total Protein 5.4 L (6.3-8.2) g/dL Albumin 2.6 L (3.5-5.0) g/dL CT scan - chest: report reviewed, image reviewed CT Scan - head: report reviewed, image reviewed Assessment and Plan Assessment: The patient is a 66 year old male presenting with a stage IIIA (cT2, N2, M0) poorly differentiated adenocarcinoma of the left lower lung. He completed a course of chemoradiation under the care of Dr. Juárez on 06/30/2021. The patient was hospitalized for nearly 2 weeks between [facility] and [facility] from early to mid August. He was positive for Covid at the time, as well as atrial fibrillation with RVR. He now presents with evidence based on CT from 09/05/21 of metastatic disease involving the liver, lungs and bone. This has not been biopsied as of yet. The patient was seen in radiation oncology clinic on September 06, and he was found to have confusion and visual hallucinations, which prompted referral to the emergency room and admission. Plan: 1. Altered mentation: Uncertain of etiology. CT scan of brain showed no vasogenic edema. MRI of the brain on hold as we are uncertain the patient will cooperate for this exam. As noted above, the patient was hospitalized for nearly 2 weeks with treatment of Covid in the [facility] system. He is still testing positive at this time, but I am more concerned about a secondary pneumonia/pneumonitis of the left lung. There is been interval worsening of his imaging over just the past one day. 2. Adenocarcinoma the lung. the patient now presents with evidence of metastatic disease based on his CT scan from September 05, with new bone lesions, multiple new liver metastases and new pulmonary metastases as well. The patient had previously been living alone, and his son who had been helping him had to travel back to [place] this past week. The patient is in poor shape for possible treatments. Appreciate medical oncology evaluation. If the patient does not improve acutely, may be appropriate for consideration of hospice care. Time with Patient: Less than 30
[2021-09-07] MEDS: DEXAMETHASONE SOD PHOSPHATE 10 MG/ML 1 ML VIAL IVP SCH (16:41)
[2021-09-07 16:52] LABS: Glucose,Whole Blood 129 mg/dL (75-99)
[2021-09-07 17:32] LABS: % Iron Saturation 23.42 (15.00-50.00); Folate, Serum 6.1 ng/mL (4.40-31.00); Magnesium 2.4 mg/dL (1.5-2.4)
--- NOTE | 2021-09-07 18:11 | PN ---
PROGRESS NOTE DATE OF SERVICE: 09/07/2021 This 66-year-old gentleman who was admitted with change in mental status, acute Covid- 19 and Covid-19 pneumonia also had interstitial pneumonia. The patient also had hypoxia. The patient also has suspected lung cancer with metastasis. The patient also has cellulitis of the right leg. The patient also had a chest CTA which I reviewed personally which showed no evidence of pulmonary embolism, extensive consolidating interstitial changes suggestive of Covid-19 pneumonia was noted. Patient admitted for further evaluation and treatment. The patient had received some Haldol. Patient also was recommended MRI and other workup by Hematology/Oncology. Chest x-ray changes are more predominant on the left side. PAST MEDICAL HISTORY: Reviewed. REVIEW OF SYSTEMS: Could not be taken, the patient is sedated at this time. CURRENT MEDICATIONS: Reviewed include Eliquis, Lipitor, Lioresal, Plavix, Cardizem, Glucotrol, doses reviewed. PHYSICAL EXAMINATION: The patient is sedated. Pulse 87, blood pressure 130/79, respiration 21, temperature 97.8, pulse ox 94% on 6 L. HEENT: Conjunctivae normal. Oral mucosa moist. NECK: No jugular venous distention. No lymph node enlargement. CARDIOVASCULAR: S1, S2, muffled. No S3, no S4, RESPIRATORY: Diminished breath sounds at the bases. A few scattered rhonchi. ABDOMEN: Soft, nontender. LEGS: No edema, no swelling. NERVOUS SYSTEM: The patient is sedated. LAB: Hemoglobin 7.5, sodium 130, potassium 4.2. Other labs are noted. Retic count is 3.4. ASSESSMENT: 1. Acute Covid-19 infection with acute Covid-19 bilateral interstitial pneumonia with acute hypoxic respiratory failure. 2. Change in mental status, metabolic encephalopathy secondary to hypoxia as well as Covid-19. 3. Right leg cellulitis. 4. History of lung cancer with possible mets. 5. Hyponatremia. 6. Anemia, normocytic. 7. History of chronic obstructive pulmonary disease. 8. Atrial fibrillation. 9. Diabetes mellitus, type 2. 10.GERD. 11.Hypertension. 12.History of hernia repair. 13.History of nicotine dependence. 14.History of ETOH. 15.Cellulitis of the right leg and abrasions. 16.FULL CODE. RECOMMENDATIONS: Recommend to continue current management and symptomatic treatment. Otherwise, at this time I recommend continue the current medications. Continue the bronchodilators. Continue with dexamethasone and Eliquis. Otherwise, Risperdal and empiric antibiotics. Guarded prognosis because of the multiple complex medical issues. Further recommendations to follow. We will obtain the cultures also. MMODL / IJN: [id number] /
[2021-09-07] MEDS ORDERED: risperiDONE 0.25 MG TAB PO SCH (21:00)
[2021-09-07 21:22] LABS: Glucose,Whole Blood 108 mg/dL (75-99)
[2021-09-08 05:04] LABS: Glucose,Whole Blood 147 mg/dL (75-99)
[2021-09-08 05:15] LABS: Anisocytosis Slight; Basophils % (A) 0 %; Eosinophils # (A) 0.1 k/uL (0-0.7); Eosinophils % (A) 1 %; HCT 24.8 % (39.0-53.0); HGB 7.5 gm/dL (13.0-17.5); Hypochromasia Marked; Lymphocytes # (A) 0.6 k/uL (1.0-4.8); Lymphocytes % (A) 6 %; MCH 30.7 pg (25.0-35.0); MCHC 30.4 g/dL (31.0-37.0); MCV 101.2 fL (80.0-100.0); Macrocytosis Moderate; Mean Platelet Volume 7.7; Monocytes # (A) 0.6 k/uL (0-1.0); Monocytes % (A) 6 %; Neutrophils # (A) 8.5 k/uL (1.3-7.7); Neutrophils % (A) 86 %; Platelet Count 222 k/uL (150-450); Poikilocytosis Slight; RBC 2.45 m/uL (4.30-5.90); RDW 17.9 % (11.5-15.5); WBC 9.9 k/uL (3.8-10.6)
[2021-09-08 05:25] LABS: African American GFR (CKD) >90 (>60 ml/min/1.73 sqM); Anion Gap 8 mmol/L; Blood Urea Nitrogen 24 mg/dL (9-20); Calcium 9.8 mg/dL (8.4-10.2); Carbon Dioxide 24 mmol/L (22-30); Chloride 105 mmol/L (98-107); Glucose 125 mg/dL (74-99); Non-African American GFR(CKD) 82 (>60 ml/min/1.73 sqM); Potassium 4.1 mmol/L (3.5-5.1); Sodium 137 mmol/L (137-145)
[2021-09-08 07:25] LABS: Glucose,Whole Blood 117 mg/dL (75-99)
[2021-09-08] MEDS: LOSARTAN 50 MG TAB PO SCH (08:01)
[2021-09-08] MEDS: ASCORBIC ACID 500 MG TAB PO SCH (08:01)
[2021-09-08] MEDS: glipiZIDE 10 MG TAB PO SCH ×2 (08:01→21:02)
[2021-09-08] MEDS: POTASSIUM CHLORIDE ER 20 MEQ TAB.ER PO SCH (08:01)
[2021-09-08] MEDS: APIXABAN 5 MG TAB PO SCH ×2 (08:01→21:02)
[2021-09-08] MEDS: SOTALOL 120 MG TAB PO SCH ×2 (08:02→21:03)
[2021-09-08] MEDS: THIAMINE 100 MG TAB PO SCH (08:02)
[2021-09-08] MEDS: NICOTINE 21MG/24HR PATCH TRANSDERM SCH (08:02)
[2021-09-08] MEDS: ATORVASTATIN 20 MG TAB PO SCH (08:02)
[2021-09-08] MEDS: ZINC SULFATE 220 MG CAP PO SCH (08:02)
[2021-09-08] MEDS: DILTIAZEM CD 180 MG CAP.ER.24H PO SCH (08:02)
[2021-09-08] MEDS: CLOPIDOGREL 75 MG TAB PO SCH (08:02)
[2021-09-08] MEDS: BACLOFEN 10 MG TAB PO SCH ×3 (08:02→21:02)
[2021-09-08] MEDS: QUEtiapine 25 MG TAB PO SCH (08:02)
[2021-09-08] MEDS: hydrALAZINE HCL 50 MG TAB PO SCH ×2 (08:02→21:02)
[2021-09-08] MEDS: DEXAMETHASONE SOD PHOSPHATE 10 MG/ML 1 ML VIAL IVP SCH (08:03)
[2021-09-08 08:49] LABS: Amorphous Sediment,Urine Occasional /hpf; Appearance,Urine Cloudy (Clear); Bilirubin,Urine Negative (Negative); Blood,Urine Negative (Negative); Color,Urine Yellow; Glucose,Urine (UA) Negative (Negative); Ketones,Urine Negative (Negative); Leukocyte Esterase,Urine Negative (Negative); Nitrite,Urine Negative (Negative); Protein,Urine Negative (Negative); RBC,Urine 1 /hpf (0-5); Specific Gravity,Urine 1.017 (1.001-1.035); Urobilinogen,Urine <2.0 mg/dL (<2.0); WBC,Urine 1 /hpf (0-5)
[2021-09-08] MEDS ORDERED: CHOLECALCIFEROL 25 MCG (1000 IU) TABLET PO SCH (09:00)
[2021-09-08] MEDS: oxyCODONE-APAP 10-325MG 1 EACH TAB PO PRN (09:40)
[2021-09-08 12:11] LABS: Glucose,Whole Blood 207 mg/dL (75-99)
[2021-09-08] MEDS: CHOLECALCIFEROL 125 MCG (5000 IU) TABLET PO SCH (15:11)
[2021-09-08] MEDS: PIPERACILLIN-TAZOBACTAM 3.375 GM in SODIUM CHLORIDE 0.9% 100 ML IVPB SCH (15:14)
[2021-09-08] MEDS: SODIUM CHLORIDE 0.9% 1,000 ML IV SCH (15:20)
--- NOTE | 2021-09-08 15:21 | P.PN ---
Subjective Progress Note Date: 09/08/21 Principal diagnosis: Shortness of breath This is a very pleasant 66-year-old male patient with known history of chronic obstructive pulmonary disease with FEV1 value of 86% of predicted, chronic and ongoing tobacco dependence greater than 50 years, atrial fibrillation anticoagul ated with Eliquis, diabetes mellitus, gastroesophageal reflux disease, previous alcohol abuse, congestive heart failure. He was diagnosed with stage III non- small cell lung cancer in March 2021. He was last seen in our office 04/12/2021 following the biopsy. He was referred to oncology. He had completed 3 cycles of cisplatin and Almta/radiation in June 2021. He had been seen yesterday by radiation oncology and was felt to have had some altered mental status and was referred here to the emergency room for the same. He did test positive for COVID-19 infection. There is also concern regarding possible brain metastasis. Computed tomography scan of the brain revealed no acute intracranial hemorrhage or midline shift. There is mild to moderate diffuse cerebral atrophy greatest over bilateral frontal lobes and mild chronic small vessel ischemic changes. No masses or lesions detected. MRI of the brain is pending. Chest x-ray reveals mild cardiomegaly and chronic emphysematous changes with worsening right lower lung and left mid lower lung opacities which could reflect neoplastic progression along with developing acute infectious process on background left lower lung neoplasm. Possible COVID-[address] angiogram ruled out pulmonary embolism. Again extensive consolidation of the left lower lobe with increased compared to a computed tomography scan done one day prior. There is rounded 2 cm mass in the right lower lobe suspicious for tumor. There are other smaller noncalcified nostrils in the right lung up to 8 mm also suspicious for tumor. White count 6.0. Hemoglobin 7.5. Platelet count 224. Lymphocytes 0.47. Sodium 133. Potassium 4.5. Creatinine 1.0. Glucose 118. AST 55. ALT 18. Alk phos 172. Patient is seen today in consultation on the regular medical floor. He is currently resting comfortably in bed. He is difficult to arouse. He did have some restlessness and was given Haldol earlier this morning. He is requiring 6 L high flow nasal cannula to maintain O2 saturation in the low 90s. He is afebrile. Hemodynamically stable. He's been initiated on cefazolin empirically. NicoDerm patch in place. Anticoagulated with Eliquis. On 09/08/2021 patient seen in follow-up on medical surgical floor, today she seems to be very lethargic, he is currently on 10 L of oxygen, earlier oxygen flow has been increased related to hypoxia, yesterday he was on 2 L of oxygen, his lung sounds are positive for diffuse rhonchi, he is noted to be more lethargic, Haldol and Risperdal were added for restlessness and confusion, patient is also getting Percocet, much more lethargic today, possibility of aspiration is also considered, patient also had some vomiting apparently. Currently patient is on Decadron 6 mg daily, he is on home dose Eliquis 5 mg twice a day, he is on Kefzol for empiric antibiotic coverage, patient is afebrile. However patient is significantly congested, with diffuse rhonchi, we'll switch his antibiotic coverage to Zosyn for possibility of aspiration. CODE STATUS is DO NOT RESUSCITATE, patient has a known history of non-small cell lung cancer with possible progression. Medical oncology is following. Brain CT was completed on admission showing no acute intracranial hemorrhage or midline shift. Mild to moderate diffuse cerebral atrophy greatest over bilateral frontal lobes and mild chronic small vessel ischemic changes. Today's labs have been reviewed, white blood cell count is 9.9, hemoglobin is 7.9, d-dimer is 3.97, electrolytes are within normal limits, with sodium of 137, potassium of 4.1, chloride is 105, CO2 is 24, B1 is 24, creatinine is 0.96. His LDH on admission was not significantly elevated and was at 440, CRP level from today is 8.4, however his ferritin was significantly elevated at 3999, urinalysis showed no evidence of infection. Patient is being treated for possible pneumonia, likely related to aspiration or healthcare acquired, altered mental status related to possibility of sepsis, and COVID-19 infection. Objective - Vital Signs Vital signs: Vital Signs Temp 97.4 F L 09/08/21 10:45 Pulse 52 L 09/08/21 13:42 Resp 24 09/08/21 13:42 BP 119/71 09/08/21 13:42 Pulse Ox 99 09/08/21 13:42 Intake & Output 09/07/21 09/08/21 09/08/21 18:59 06:59 18:59 Output Total 200 Balance -200 Output: Urine 200 Other: Voiding Method Urinal Diaper # Voids 2 3 # Bowel Movements 1 # Emeses 1 - Exam GENERAL EXAM: lethargic 66-year-old chronically ill looking white male, on 10 L of oxygen pulse ox of 98%, and subsequently FiO2 has been dropped down to 8 L comfortable in no apparent distress. HEAD: Normocephalic/atraumatic. EYES: Normal reaction of pupils, equal size. Conjunctiva pink, sclera white. NOSE: Clear with pink turbinates. THROAT: No erythema or exudates. NECK: No masses, no JVD, no thyroid enlargement, no adenopathy. CHEST: No chest wall deformity. Symmetrical expansion. LUNGS: Equal air entry with diffuse rhonchi CVS: Regular rate and rhythm, normal S1 and S2, no gallops, no murmurs, no rubs ABDOMEN: Soft, nontender. No hepatosplenomegaly, normal bowel sounds, no guarding or rigidity. EXTREMITIES: No clubbing, no edema, no cyanosis, 2+ pulses and upper and lower extremities. MUSCULOSKELETAL: Muscle strength and tone normal. SPINE: No scoliosis or deformity SKIN: No rashes, has diffuse bruises on his upper and lower extremities, possibly from falling at home at various stages of healing CENTRAL NERVOUS SYSTEM: Lethargic, but arousable to repeated verbal and tactile stimulation No focal deficits, tone is normal in all 4 extremities. - Labs CBC & Chem 7: 09/08/21 04:52 09/08/21 04:52 Labs: Abnormal Lab Results - Last 24 Hours (Table) 09/07/21 09/07/21 09/07/21 Range/Units 10:24 10:24 16:51 RBC (4.30-5.90) m/uL Hgb (13.0-17.5) gm/dL Hct (39.0-53.0) % MCV (80.0-100.0) fL MCHC (31.0-37.0) g/dL RDW (11.5-15.5) % Neutrophils # (1.3-7.7) k/uL Lymphocytes # (1.0-4.8) k/uL Haptoglobin 384.0 H (31.2-198.0) mg/dL D-Dimer (<0.60) mg/L FEU BUN (9-20) mg/dL Glucose (74-99) mg/dL POC Glucose (mg/dL) 129 H (75-99) mg/dL Iron 46 L (65-175) ug/dL TIBC 196 L (228-460) ug/dL Transferrin 140.0 L (204.0-354.0) mg/dL Ferritin 3999.0 H (22.0-322.0) ng/mL Lactate Dehydrogenase 440 H (120-246) U/L C-Reactive Protein (<1.0) mg/dL Vitamin D 25-Hydroxy 12.0 L (30.0-100.0) ng/mL Amorphous Sediment (None) /hpf 09/07/21 09/08/21 09/08/21 Range/Units 21:20 04:52 04:52 RBC (4.30-5.90) m/uL Hgb (13.0-17.5) gm/dL Hct (39.0-53.0) % MCV (80.0-100.0) fL MCHC (31.0-37.0) g/dL RDW (11.5-15.5) % Neutrophils # (1.3-7.7) k/uL Lymphocytes # (1.0-4.8) k/uL Haptoglobin (31.2-198.0) mg/dL D-Dimer 3.97 H (<0.60) mg/L FEU BUN (9-20) mg/dL Glucose (74-99) mg/dL POC Glucose (mg/dL) 108 H (75-99) mg/dL Iron (65-175) ug/dL TIBC (228-460) ug/dL Transferrin (204.0-354.0) mg/dL Ferritin (22.0-322.0) ng/mL Lactate Dehydrogenase (120-246) U/L C-Reactive Protein 8.4 H (<1.0) mg/dL Vitamin D 25-Hydroxy (30.0-100.0) ng/mL Amorphous Sediment (None) /hpf 09/08/21 09/08/21 09/08/21 Range/Units 04:52 04:52 05:03 RBC 2.45 L (4.30-5.90) m/uL Hgb 7.5 L (13.0-17.5) gm/dL Hct 24.8 L (39.0-53.0) % MCV 101.2 H (80.0-100.0) fL MCHC 30.4 L (31.0-37.0) g/dL RDW 17.9 H (11.5-15.5) % Neutrophils # 8.5 H (1.3-7.7) k/uL Lymphocytes # 0.6 L (1.0-4.8) k/uL Haptoglobin (31.2-198.0) mg/dL D-Dimer (<0.60) mg/L FEU BUN 24 H (9-20) mg/dL Glucose 125 H (74-99) mg/dL POC Glucose (mg/dL) 147 H (75-99) mg/dL Iron (65-175) ug/dL TIBC (228-460) ug/dL Transferrin (204.0-354.0) mg/dL Ferritin (22.0-322.0) ng/mL Lactate Dehydrogenase (120-246) U/L C-Reactive Protein (<1.0) mg/dL Vitamin D 25-Hydroxy (30.0-100.0) ng/mL Amorphous Sediment (None) /hpf 09/08/21 09/08/21 09/08/21 Range/Units 07:23 08:00 12:09 RBC (4.30-5.90) m/uL Hgb (13.0-17.5) gm/dL Hct (39.0-53.0) % MCV (80.0-100.0) fL MCHC (31.0-37.0) g/dL RDW (11.5-15.5) % Neutrophils # (1.3-7.7) k/uL Lymphocytes # (1.0-4.8) k/uL Haptoglobin (31.2-198.0) mg/dL D-Dimer (<0.60) mg/L FEU BUN (9-20) mg/dL Glucose (74-99) mg/dL POC Glucose (mg/dL) 117 H 207 H (75-99) mg/dL Iron (65-175) ug/dL TIBC (228-460) ug/dL Transferrin (204.0-354.0) mg/dL Ferritin (22.0-322.0) ng/mL Lactate Dehydrogenase (120-246) U/L C-Reactive Protein (<1.0) mg/dL Vitamin D 25-Hydroxy (30.0-100.0) ng/mL Amorphous Sediment Occasional H (None) /hpf Microbiology - Last 24 Hours (Table) 09/07/21 10:23 Blood Culture - Preliminary Blood No Growth after 24 hours Assessment and Plan Plan: Assessment: #1. Altered mental status, possibly related to sepsis related to pneumonia. CT of the brain showed no acute intracranial hemorrhage or midline shift, cerebral atrophy mild to moderate and mild chronic small vessel ischemic changes #2. Acute hypoxic respiratory failure, multifactorial, related to non-small c ell lung carcinoma, possibly metastatic at this point, pneumonia aspiration related or healthcare acquired, and COVID-19 infection/possible pneumonia #3. 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 History of paroxysmal atrial fibrillation, on Eliquis #5. Recent hospitalization at [facility] in [facility], recently discharged in mid August 2021 #6. Rule out possibility of aspiration versus healthcare acquired pneumonia #7. Based on the CT of the chest, abdomen and pelvis, metastasis to the liver, lungs and bone #9. COPD, recent FEV1 of 86% of predicted #10. Diabetes mellitus type 2 #11. Hypertension #12. Former smoker #13. Poor overall functional performance, with suspected falls at home #14. History of coronary artery disease with previous stent placement 2 #15. Hyperlipidemia #16. History of alcohol abuse Plan: Continue with Decadron 6 mg daily Maintain aspiration precautions We'll switch Kefzol to IV Zosyn for possibility of aspiration related pneumonia Send blood cultures, procalcitonin We'll stop the Risperdal, hold Seroquel if patient appears too sedated Patient was noted to have bundle branch block on the monitor 3 sets of troponins have been ordered and EKG have been obtained We'll defer to primary care service on the decision to consult cardiology Overall prognosis is very poor due to above-mentioned reasons, and overall very poor functional performance CODE STATUS is DO NOT RESUSCITATE If continues to worsen, we recommend proceeding with hospice consultation I performed a history & physical examination of the patient and discussed their management with my nurse practitioner, Debra Johnson. I reviewed the nurse practitioner's note and agree with the documented findings and plan of care. Lung sounds are positive for diffuse rhonchi throughout the lung giang. The findings and the impression was discussed with the patient. I attest to the documentation by the nurse practitioner. Time with Patient: Less than 30
[2021-09-08] MEDS: INSULIN ASPART (NovoLOG) 100 UNIT/ML VIAL SQ SCH ×2 (17:19→21:03)
[2021-09-08] MEDS ORDERED: ACETAMINOPHEN TAB 500 MG TAB PO STA (17:24)
[2021-09-08 17:36] LABS: Glucose,Whole Blood 195 mg/dL (75-99)
--- NOTE | 2021-09-08 17:54 | PN ---
PROGRESS NOTE DATE OF SERVICE: 09/08/2021 This 66-year-old gentleman who was admitted with acute Covid-19 infection also had encephalopathy. The patient was restless and after ( ) medication, patient is slightly sedated at this time. The patient also had lung cancer with possible mets also. A chest CT was reviewed. Multiple consultants are following the patient closely. PAST MEDICAL HISTORY: Reviewed. REVIEW OF SYSTEMS: Could not be taken, the patient is sedated. CURRENT MEDICATIONS: Reviewed include Eliquis, vitamin C, Lipitor, Lioresal, cholecalciferol, Plavix. The rest of medication and doses are reviewed. PHYSICAL EXAMINATION: Patient is stuporous and mildly sedated as mentioned earlier. Pulse 57, blood pressure 108/57, respiration 14, temperature 97.4, pulse ox 100% on 8 L high-flow oxygen. HEENT: Conjunctivae normal. Oral mucosa moist. NECK: No jugular venous distention. No lymph node enlargement. CARDIOVASCULAR: S1, S2, muffled. No S3, no S4, RESPIRATORY: Diminished breath sounds at the bases. A few scattered rhonchi. ABDOMEN: Soft, nontender. LEGS: No edema, no swelling. NERVOUS SYSTEM: No focal deficits. LABS: D-dimer is 3.97. Hemoglobin 7.5. Otherwise, the cultures are negative so far. ASSESSMENT: 1. Acute COVID-19 infection with acute COVID-19 bilateral interstitial pneumonia with acute hypoxic respiratory failure. 2. Change in mental status, acute metabolic encephalopathy secondary to hypoxia as well as COVID-19. 3. Right leg cellulitis. 4. History of lung cancer with possible metastasis. 5. Hyponatremia. 6. Anemia, normocytic. 7. History of chronic obstructive pulmonary disease. 8. Atrial fibrillation, chronic. 9. Diabetes mellitus type 2. 10.Gastroesophageal reflux disease. 11.Hypertension. 12.History of hernia repair. 13.History of nicotine dependence. 14.History of EtOH. 15.FULL CODE. RECOMMENDATIONS: Recommend to continue current management and symptomatic treatment. Otherwise, continue the antibiotics. Continue with dexamethasone. Repeat labs tomorrow. Monitor blood sugars closely. Guarded prognosis. Further recommendations to follow. We will also add insulin to scale to the current regimen. Continue with the broad-spectrum IV antibiotics. MMODL / IJN: [id number] /
[2021-09-08 20:25] LABS: Glucose,Whole Blood 176 mg/dL (75-99)
--- NOTE | 2021-09-09 00:06 | PN ---
PROGRESS NOTE DATE OF SERVICE: DATE OF SERVICE: 09/08/2021 REASON FOR FOLLOWUP: 1. postobstructive pneumonia. 2. Positive Covid test. INTERVAL HISTORY: Patient is afebrile. The patient is breathing comfortably. Not requiring high-flow oxygen. Denies any chest pain. No worsening cough. No sputum production. No nausea. No abdominal pain or diarrhea. PHYSICAL EXAMINATION: Her blood pressure is 119/71 with a pulse of 52, temp 97.4. He is 99% on 8 L nasal cannula. General description is an elderly male lying in bed in no distress. Respiratory system: Unlabored breathing, decreased intensity of breath sounds. No wheeze. Heart S1, S2. Regular rate and rhythm. Abdomen: Soft. No tenderness. Extremities: No edema of the feet. LABS: Urine is negative. White count 9.9, procalcitonin is elevated 5.2. DIAGNOSTIC IMPRESSION AND PLAN: Patient with lung cancer with concern for possible postobstructive pneumonia. Zosyn has been added. We will try to obtain a sputum to narrow down antibiotics and monitor clinical course closely. Continue supportive care. MMODL / IJN: [id number] /
[2021-09-09] MEDS: PIPERACILLIN-TAZOBACTAM 3.375 GM in SODIUM CHLORIDE 0.9% 100 ML IVPB SCH ×3 (00:13→23:40)
[2021-09-09] MEDS ORDERED: ACETAMINOPHEN TAB 500 MG TAB PO STA (04:41)
[2021-09-09 07:41] LABS: Glucose,Whole Blood 74 mg/dL (75-99)
[2021-09-09] MEDS: INSULIN ASPART (NovoLOG) 100 UNIT/ML VIAL SQ SCH ×4 (08:04→20:52)
[2021-09-09] MEDS: QUEtiapine 25 MG TAB PO SCH (08:08)
[2021-09-09] MEDS: NICOTINE 21MG/24HR PATCH TRANSDERM SCH (08:08)
[2021-09-09] MEDS: POTASSIUM CHLORIDE ER 20 MEQ TAB.ER PO SCH (08:08)
[2021-09-09] MEDS: CHOLECALCIFEROL 125 MCG (5000 IU) TABLET PO SCH (08:08)
[2021-09-09] MEDS: BACLOFEN 10 MG TAB PO SCH ×3 (08:09→20:53)
[2021-09-09] MEDS: CLOPIDOGREL 75 MG TAB PO SCH (08:09)
[2021-09-09] MEDS: THIAMINE 100 MG TAB PO SCH (08:09)
[2021-09-09] MEDS: LOSARTAN 50 MG TAB PO SCH (08:09)
[2021-09-09] MEDS: glipiZIDE 10 MG TAB PO SCH ×2 (08:09→20:31)
[2021-09-09] MEDS: APIXABAN 5 MG TAB PO SCH ×2 (08:09→20:53)
[2021-09-09] MEDS: hydrALAZINE HCL 50 MG TAB PO SCH ×2 (08:09→20:53)
[2021-09-09] MEDS: SOTALOL 120 MG TAB PO SCH ×2 (08:10→20:53)
[2021-09-09] MEDS: ATORVASTATIN 20 MG TAB PO SCH (08:10)
[2021-09-09] MEDS: PANTOPRAZOLE 40 MG TABLET PO SCH (08:10)
[2021-09-09] MEDS: ZINC SULFATE 220 MG CAP PO SCH (08:10)
[2021-09-09] MEDS: DILTIAZEM CD 180 MG CAP.ER.24H PO SCH (08:10)
[2021-09-09] MEDS: ASCORBIC ACID 500 MG TAB PO SCH (08:10)
--- NOTE | 2021-09-09 09:38 | P.CONS ---
History of Present Illness - Reason for Consult Consult date: 09/07/21 covid 19 pneumonia Requesting physician: Azael Shepherd - Chief Complaint mental status changes x 1 day - History of Present Illness History of present illness : Patient is a 58-year-old male with a past medical history difficult for COPD diabetes mellitus congestive heart failure stage III non-small cell lung cancer that was diagnosed in March 2021 for the patient has completed 3 cycles of chemoradiation patient was evaluated and treated initial oncology office and was noticed to be having some mental status changes for the patient was sent to [facility] ER patient be complaining of feeling weak and no energy patient denies having any chest pain he did have a mild cough not bringing up any sputum denies having any nausea no vomiting no abdominal pain or diarrhea on presentation to the hospital the patient was afebrile patient was mildly hypoxic with need for supplemental oxygen patient did have a normal white count with lymphopenia D-dimer was elevated creatinine was normal liver enzymes are normal CRP was mildly elevated urine is negative co aleida PCR was positive patient did have a chest x-ray mild cardiomegaly and chronic emphysematous changes with worsening right lower lung and left mid to lower lobe opacities concerning for neoplastic progression or acute infectious process patient also have a CT diagram of the chest no evidence of PE did show extensive consolidation in the left lower lobe increased compared to the scan yesterday and 2 rounded masses in the right lower lobe suspicious for tumor patient was admitted to hospital infectious was consulted for further management Review of system: CONSTITUTIONAL: Positive for weakness denies high-grade fever. EYES: No complaint. ENT: No complaint. RESPIRATORY: As per history of present illness. CARDIOVASCULAR: No complaint. GENITOURINARY: No complaint. GASTROINTESTINAL: No complaint. MUSCULOSKELETAL: No complaint. INTEGUMENTARY: No complaint. PSYCHOLOGIC: No complaint. ENDOCRINE: No complaint. NEUROLOGIC: No complaint. Past medical history : Reviewed, documented below Past surgical history : Reviewed, documented below Social history: Reviewed, documented below Medications: Reviewed, as documented below EXAMINATION: Vital sigans= Reviewed and documented below GENERAL DESCRIPTION: Elderly male lying in bed, no distress. No tachypnea or accessory muscle of respiration use. HEENT: Shows Pallor , no scleral icterus. Oral mucous membrane is dry. NECK: Trachea central, no thyromegaly. LUNGS: Unlabored breathing. Decreased breath sound at the base. No wheeze or crackle. HEART: S1, S2, regular rate and rhythm. ABDOMEN: Soft, no tenderness , guarding or rigidity EXTREMITIES: No edema of feet. SKIN: No rash, no masses palpable. NEUROLOGICAL: The patient sleepy lethargic, mood and affect normal. LABS AND RADIOLOGY: Reviewed results see below Assessment : Patient presented to hospital with mental status changes weakness in this patient who did have a stage III non-small lung cancer now with evidence of increasing consolidation to the right lower lobe concern for possible postobstructive pneumonia in this patient who did have a positive Covid test however no fever or elevated white count hence progression of his underlying malignancy should also be considered in the differential Plan: 1-we will wait for the procalcitonin level to be finalized 2-try to obtain a sputum for Gram stain and culture 3-dexamethasone Eliquis zinc and ascorbic acid to continue We will follow on clinical condition and cultures to further adjust medication if needed Thank you for this consultation we will follow the patient along with you Past Medical History Past Medical History: Atrial Fibrillation, Cancer, COPD, Diabetes Mellitus, GERD/Reflux, Hypertension Additional Past Medical History / Comment(s): recent scans showing cancer to lungs, liver, and bone which is recurrent. pt was recently admitted for covid for a few weeks in august. stress test scheduled for 03-01-21, lung ca. Pt live s alone and his neighbors help. son lives in [place]. History of Any Multi-Drug Resistant Organisms: None Reported Past Surgical History: Hernia Repair Additional Past Surgical History / Comment(s): hernia x2,fatty tumor removed abdomen, cardiac stent X 2, Past Anesthesia/Blood Transfusion Reactions: No Reported Reaction Past Psychological History: No Psychological Hx Reported Smoking Status: Current every day smoker Past Alcohol Use History: Daily Additional Past Alcohol Use History / Comment(s): started smoking at age 16, approx. 1ppd Past Drug Use History: None Reported - Past Family History Mother Family Medical History: Cancer Sister(s) Family Medical History: Cancer Medications and Allergies Home Medications Medication Instructions Recorded Confirmed Type Apixaban [Eliquis] 5 mg PO BID 02/28/21 09/06/21 History Clopidogrel [Plavix] 75 mg PO DAILY 02/28/21 09/06/21 History Furosemide [Lasix] 40 mg PO DAILY 02/28/21 09/06/21 History Losartan Potassium [Cozaar] 100 mg PO DAILY 02/28/21 09/06/21 History Potassium Chloride [Klor-Con 20] 20 meq PO DAILY 02/28/21 09/06/21 History glipiZIDE XL [Glucotrol XL] 10 mg PO BID 02/28/21 09/06/21 History Diltiazem Cd [Cardizem CD] 180 mg PO DAILY 30 Days #30 03/06/21 09/06/21 Rx cap.er.24h Sotalol [Betapace] 120 mg PO BID 03/28/21 09/06/21 History Baclofen [Lioresal] 10 mg PO TID 09/06/21 09/06/21 History Famotidine [Pepcid] 40 mg PO DAILY 09/06/21 09/06/21 History Rosuvastatin Calcium [Crestor] 40 mg PO DAILY 09/06/21 09/06/21 History Thiamine [Vitamin B-1] 100 mg PO DAILY 09/06/21 09/06/21 History guaiFENesin-DM 100-10MG/5ML 5 - 10 ml PO QID PRN 09/06/21 09/06/21 History [Robitussin DM] hydrALAZINE HCL [Apresoline] 50 mg PO BID 09/06/21 09/06/21 History oxyCODONE-APAP 10-325MG [Percocet 1 tab PO Q6H PRN 09/06/21 09/06/21 History 10-325 mg] Allergies Allergy/AdvReac Type Severity Reaction Status Date / Time No Known Allergies Allergy Verified 09/06/21 15:22 Physical Exam Vitals: Vital Signs Temp Pulse Pulse Resp BP BP Pulse Ox 09/07/21 15:09 97.8 F 87 21 131/79 94 L 09/07/21 10:56 98.4 F 64 19 95/55 98 09/07/21 05:25 98.0 F 71 20 124/68 93 L 09/07/21 00:00 18 09/06/21 23:58 98.7 F 76 18 123/77 93 L 09/06/21 22:21 97.9 F 72 26 H 103/68 90 L 09/06/21 20:00 93 L 09/06/21 18:20 67 18 109/61 89 L Intake and Output 09/07/21 09/07/21 09/07/21 06:59 14:59 22:59 Output Total 500 Balance -500 Output: Urine 500 Other: Voiding Method Urinal Diaper # Voids 2 # Bowel Movements 1 Weight 76.204 kg Results CBC & Chem 7: 09/08/21 04:52 09/08/21 04:52 Labs: Abnormal Lab Results - Last 24 Hours (Table) 09/06/21 09/06/21 09/07/21 Range/Units 19:19 22:31 05:52 RBC 2.47 L (4.40-5.60) X 10*6/uL Hgb 7.5 L (13.0-17.0) g/dL Hct 24.5 L (39.6-50.0) % MCV 99.2 H (80.0-97.0) fL MCHC 30.6 L (32.0-37.0) g/dL RDW 18.5 H (11.5-14.5) % Immature Gran # 0.19 H (0.00-0.04) X 10*3/uL Lymphocytes # 0.47 L (0.90-5.00) X 10*3/uL Eosinophils # 0 L (0.04-0.35) X 10*3/uL Retic Count (0.10-1.80) % Haptoglobin (31.2-198.0) mg/dL D-Dimer 3.46 H (<0.60) mg/L FEU Sodium (135-145) mmol/L Carbon Dioxide (20.0-27.5) mmol/L Glucose (70-110) mg/dL POC Glucose (mg/dL) 134 H (75-99) mg/dL Alkaline Phosphatase (38-126) U/L Total Protein (6.3-8.2) g/dL Albumin (3.5-5.0) g/dL 09/07/21 09/07/21 09/07/21 Range/Units 05:52 07:09 10:24 RBC (4.40-5.60) X 10*6/uL Hgb (13.0-17.0) g/dL Hct (39.6-50.0) % MCV (80.0-97.0) fL MCHC (32.0-37.0) g/dL RDW (11.5-14.5) % Immature Gran # (0.00-0.04) X 10*3/uL Lymphocytes # (0.90-5.00) X 10*3/uL Eosinophils # (0.04-0.35) X 10*3/uL Retic Count 3.42 H (0.10-1.80) % Haptoglobin (31.2-198.0) mg/dL D-Dimer (<0.60) mg/L FEU Sodium 133 L (135-145) mmol/L Carbon Dioxide 19.7 L (20.0-27.5) mmol/L Glucose 118 H (70-110) mg/dL POC Glucose (mg/dL) 111 H (75-99) mg/dL Alkaline Phosphatase (38-126) U/L Total Protein (6.3-8.2) g/dL Albumin (3.5-5.0) g/dL 09/07/21 09/07/21 09/07/21 Range/Units 10:24 10:24 11:54 RBC (4.40-5.60) X 10*6/uL Hgb (13.0-17.0) g/dL Hct (39.6-50.0) % MCV (80.0-97.0) fL MCHC (32.0-37.0) g/dL RDW (11.5-14.5) % Immature Gran # (0.00-0.04) X 10*3/uL Lymphocytes # (0.90-5.00) X 10*3/uL Eosinophils # (0.04-0.35) X 10*3/uL Retic Count (0.10-1.80) % Haptoglobin 384.0 H (31.2-198.0) mg/dL D-Dimer (<0.60) mg/L FEU Sodium (135-145) mmol/L Carbon Dioxide (20.0-27.5) mmol/L Glucose (70-110) mg/dL POC Glucose (mg/dL) 217 H (75-99) mg/dL Alkaline Phosphatase 172 H (38-126) U/L Total Protein 5.4 L (6.3-8.2) g/dL Albumin 2.6 L (3.5-5.0) g/dL
[2021-09-09 11:31] LABS: Glucose,Whole Blood 66 mg/dL (75-99)
--- NOTE | 2021-09-09 14:22 | P.PN ---
Subjective Progress Note Date: 09/09/21 Principal diagnosis: Shortness of breath This is a very pleasant 66-year-old male patient with known history of chronic obstructive pulmonary disease with FEV1 value of 86% of predicted, chronic and ongoing tobacco dependence greater than 50 years, atrial fibrillation anticoagul ated with Eliquis, diabetes mellitus, gastroesophageal reflux disease, previous alcohol abuse, congestive heart failure. He was diagnosed with stage III non- small cell lung cancer in March 2021. He was last seen in our office 04/12/2021 following the biopsy. He was referred to oncology. He had completed 3 cycles of cisplatin and Almta/radiation in June 2021. He had been seen yesterday by radiation oncology and was felt to have had some altered mental status and was referred here to the emergency room for the same. He did test positive for COVID-19 infection. There is also concern regarding possible brain metastasis. Computed tomography scan of the brain revealed no acute intracranial hemorrhage or midline shift. There is mild to moderate diffuse cerebral atrophy greatest over bilateral frontal lobes and mild chronic small vessel ischemic changes. No masses or lesions detected. MRI of the brain is pending. Chest x-ray reveals mild cardiomegaly and chronic emphysematous changes with worsening right lower lung and left mid lower lung opacities which could reflect neoplastic progression along with developing acute infectious process on background left lower lung neoplasm. Possible COVID-[address] angiogram ruled out pulmonary embolism. Again extensive consolidation of the left lower lobe with increased compared to a computed tomography scan done one day prior. There is rounded 2 cm mass in the right lower lobe suspicious for tumor. There are other smaller noncalcified nostrils in the right lung up to 8 mm also suspicious for tumor. White count 6.0. Hemoglobin 7.5. Platelet count 224. Lymphocytes 0.47. Sodium 133. Potassium 4.5. Creatinine 1.0. Glucose 118. AST 55. ALT 18. Alk phos 172. Patient is seen today in consultation on the regular medical floor. He is currently resting comfortably in bed. He is difficult to arouse. He did have some restlessness and was given Haldol earlier this morning. He is requiring 6 L high flow nasal cannula to maintain O2 saturation in the low 90s. He is afebrile. Hemodynamically stable. He's been initiated on cefazolin empirically. NicoDerm patch in place. Anticoagulated with Eliquis. On 09/08/2021 patient seen in follow-up on medical surgical floor, today she seems to be very lethargic, he is currently on 10 L of oxygen, earlier oxygen flow has been increased related to hypoxia, yesterday he was on 2 L of oxygen, his lung sounds are positive for diffuse rhonchi, he is noted to be more lethargic, Haldol and Risperdal were added for restlessness and confusion, patient is also getting Percocet, much more lethargic today, possibility of aspiration is also considered, patient also had some vomiting apparently. Currently patient is on Decadron 6 mg daily, he is on home dose Eliquis 5 mg twice a day, he is on Kefzol for empiric antibiotic coverage, patient is afebrile. However patient is significantly congested, with diffuse rhonchi, we'll switch his antibiotic coverage to Zosyn for possibility of aspiration. CODE STATUS is DO NOT RESUSCITATE, patient has a known history of non-small cell lung cancer with possible progression. Medical oncology is following. Brain CT was completed on admission showing no acute intracranial hemorrhage or midline shift. Mild to moderate diffuse cerebral atrophy greatest over bilateral frontal lobes and mild chronic small vessel ischemic changes. Today's labs have been reviewed, white blood cell count is 9.9, hemoglobin is 7.9, d-dimer is 3.97, electrolytes are within normal limits, with sodium of 137, potassium of 4.1, chloride is 105, CO2 is 24, B1 is 24, creatinine is 0.96. His LDH on admission was not significantly elevated and was at 440, CRP level from today is 8.4, however his ferritin was significantly elevated at 3999, urinalysis showed no evidence of infection. Patient is being treated for possible pneumonia, likely related to aspiration or healthcare acquired, altered mental status related to possibility of sepsis, and COVID-19 infection. On 09/09/2021 patient is seen in follow-up on medical surgical floor. He seems to be less lethargic, although still confused, , does not appear to be in any respiratory distress, he is currently on 6 L of oxygen his pulse ox is about 90- 91%. Breathing comfortable, lung sounds are clear, no crackles auscultated, no rhonchi or wheezing. His oral intake has been poor, patient has been afebrile, blood pressure has been stable. Apparently last night when he got confused he pulled out his PICC line, cathLab is consulted for midline insertion. patient continues on IV Decadron 6 mg daily for a rate related pneumonia, he is on Zosyn which was started yesterday for possibility of bacterial superinfection, his pro-calcitonin level came back elevated at 5.29. bloodculture has been sent, showing no growth Objective - Vital Signs Vital signs: Vital Signs Temp 97.8 F 09/09/21 14:00 Pulse 63 09/09/21 14:00 Resp 14 09/09/21 14:00 BP 145/70 09/09/21 14:00 Pulse Ox 90 L 09/09/21 14:00 Intake & Output 09/08/21 09/09/21 09/09/21 18:59 06:59 18:59 Other: Voiding Method Urinal Diaper # Voids 4 4 - Exam GENERAL EXAM: lethargic 66-year-old chronically ill looking white male, on 6 L of oxygen pulse ox of 98%, comfortable in no apparent distress. HEAD: Normocephalic/atraumatic. EYES: Normal reaction of pupils, equal size. Conjunctiva pink, sclera white. NOSE: Clear with pink turbinates. THROAT: No erythema or exudates. NECK: No masses, no JVD, no thyroid enlargement, no adenopathy. CHEST: No chest wall deformity. Symmetrical expansion. LUNGS: Equal air entry with diffuse rhonchi CVS: Regular rate and rhythm, normal S1 and S2, no gallops, no murmurs, no rubs ABDOMEN: Soft, nontender. No hepatosplenomegaly, normal bowel sounds, no guarding or rigidity. EXTREMITIES: No clubbing, no edema, no cyanosis, 2+ pulses and upper and lower extremities. MUSCULOSKELETAL: Muscle strength and tone normal. SPINE: No scoliosis or deformity SKIN: No rashes, has diffuse bruises on his upper and lower extremities, possibly from falling at home at various stages of healing CENTRAL NERVOUS SYSTEM: Lethargic, but arousable No focal deficits, tone is normal in all 4 extremities. - Labs CBC & Chem 7: 09/08/21 04:52 09/08/21 04:52 Labs: Abnormal Lab Results - Last 24 Hours (Table) 09/08/21 09/08/21 09/08/21 Range/Units 12:21 17:16 20:23 POC Glucose (mg/dL) 195 H 176 H (75-99) mg/dL Procalcitonin 5.29 H (0.02-0.09) ng/mL 09/09/21 09/09/21 Range/Units 07:38 11:30 POC Glucose (mg/dL) 74 L 66 L (75-99) mg/dL Procalcitonin (0.02-0.09) ng/mL Microbiology - Last 24 Hours (Table) 09/07/21 10:23 Blood Culture - Preliminary Blood No Growth after 48 hours Assessment and Plan Plan: Assessment: #1. Altered mental status,related to sepsis related to pneumonia, procalcitonin level is elevated. CT of the brain showed no acute intracranial hemorrhage or midline shift, cerebral atrophy mild to moderate and mild chronic small vessel ischemic changes #2. Acute hypoxic respiratory failure, multifactorial, related to non-small cell lung carcinoma, possibly metastatic at this point, pneumonia aspiration related or healthcare acquired, and COVID-19 infection/possible pneumonia #3. 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 History of paroxysmal atrial fibrillation, on Eliquis #5. Recent hospitalization at [facility] in [facility], recently discharged in mid August 2021 #6. Rule out possibility of aspiration versus healthcare acquired pneumonia #7. Based on the CT of the chest, abdomen and pelvis, metastasis to the liver, lungs and bone #9. COPD, recent FEV1 of 86% of predicted #10. Diabetes mellitus type 2 #11. Hypertension #12. Former smoker #13. Poor overall functional performance, with suspected falls at home #14. History of coronary artery disease with previous stent placement 2 #15. Hyperlipidemia #16. History of alcohol abuse Plan: still lethargic and confused, but appears better Currently on 6l/min No distress noted Continue Zosyn Maintain aspiration precautions start 0.9 at 75 So far cultures are negative Appetite is poor Provide assistance and supervision with meals continue Eliquis, cotinue COVID 19 vitamins Overall prognosis is extremely guarded I performed a history & physical examination of the patient and discussed their management with my nurse practitioner, Debra Johnson. I reviewed the nurse practitioner's note and agree with the documented findings and plan of care. Lung sounds are positive for diffuse rhonchi throughout the lung giang. The findings and the impression was discussed with the patient. I attest to the documentation by the nurse practitioner. Time with Patient: Less than 30
[2021-09-09] MEDS ORDERED: LORazepam 0.5 MG TAB PO STA (14:50)
[2021-09-09 15:31] LABS: Anisocytosis Slight; Basophils % (A) 0 %; Eosinophils # (A) 0.1 k/uL (0-0.7); Eosinophils % (A) 1 %; HCT 25.4 % (39.0-53.0); HGB 7.9 gm/dL (13.0-17.5); Hypochromasia Marked; Lymphocytes # (A) 0.7 k/uL (1.0-4.8); Lymphocytes % (A) 5 %; MCHC 31.2 g/dL (31.0-37.0); MCV 102.5 fL (80.0-100.0); Macrocytosis Moderate; Mean Platelet Volume 7.2; Monocytes # (A) 0.7 k/uL (0-1.0); Monocytes % (A) 5 %; Neutrophils % (A) 88 %; Platelet Count 275 k/uL (150-450); Poikilocytosis Slight; RBC 2.48 m/uL (4.30-5.90); RDW 18.5 % (11.5-15.5); WBC 12.6 k/uL (3.8-10.6)
[2021-09-09] MEDS: DEXAMETHASONE SOD PHOSPHATE 10 MG/ML 1 ML VIAL IVP SCH (15:54)
[2021-09-09 16:17] LABS: ALT 27 U/L (4-49); AST 95 U/L (17-59); African American GFR (CKD) >90 (>60 ml/min/1.73 sqM); Albumin 3.1 g/dL (3.5-5.0); Albumin/Globulin Ratio 1.1; Alkaline Phosphatase 195 U/L (38-126); Anion Gap 9 mmol/L; Blood Urea Nitrogen 24 mg/dL (9-20); Carbon Dioxide 23 mmol/L (22-30); Chloride 107 mmol/L (98-107); Globulin 2.9 g/dL; Glucose 53 mg/dL (74-99); Non-African American GFR(CKD) 87 (>60 ml/min/1.73 sqM); Potassium 3.8 mmol/L (3.5-5.1); Sodium 139 mmol/L (137-145); Total Bilirubin 0.6 mg/dL (0.2-1.3)
[2021-09-09 16:40] LABS: Glucose,Whole Blood 71 mg/dL (75-99)
[2021-09-09] MEDS: SODIUM CHLORIDE 0.9% 1,000 ML IV SCH (17:17)
--- NOTE | 2021-09-09 17:34 | PN ---
PROGRESS NOTE DATE OF SERVICE: 09/09/2020 This 66-year-old gentleman was admitted with acute Covid-19 infection, also had significant encephalopathy. The patient also had history of lung cancer. Multiple consultants are following the patient closely. PAST MEDICAL HISTORY: Reviewed. REVIEW OF SYSTEMS: Could not be taken, the patient is confused. CURRENT MEDICATIONS: Reviewed include Eliquis, vitamin C, Lipitor, Lioresal, vitamin D3, Plavix. Doses and other medications noted. PHYSICAL EXAMINATION: Patient is confused, arousable. Pulse 64, blood pressure 120/60, respiration 14, temperature 97.4, pulse ox ( )% on 6 L. HEENT: Conjunctivae normal. Oral mucosa moist. NECK: No jugular venous distention. No lymph node enlargement. CARDIOVASCULAR: S1, S2, muffled. No S3, no S4, RESPIRATORY: Diminished breath sounds at the bases. A few scattered rhonchi. ABDOMEN: Soft. NERVOUS SYSTEM: No focal deficits. LAB STUDIES: WBC 12.2, hemoglobin 7.9, glucose noted. ASSESSMENT: 1. Acute Covid-19 infection with acute Covid-19 bilateral interstitial pneumonia with acute hypoxic respiratory failure. 2. Change in mental status, acute metabolic encephalopathy secondary to hypoxia as well as Covid-19. 3. Right leg cellulitis. 4. History of lung cancer with possible metastasis. 5. Hyponatremia. 6. Anemia, normocytic. 7. History of chronic obstructive pulmonary disease. 8. Atrial fibrillation, chronic. 9. Diabetes mellitus, type 2. 10.GERD. 11.Hypertension. 12.History of hernia repair. 13.History of nicotine dependence. 14.History of EtOH. 15.FULL CODE. RECOMMENDATIONS: Recommend to continue current management and symptomatic treatment. Otherwise, at this time we will repeat labs. Continue the current medications and multiple consultants are following the patient closely, including Infectious Disease, Pulmonary and as well as Radiation Oncology and Hematology/Oncology. The overall prognosis is guarded because of multiple complex medical issues and further recommendations to follow. The patient apparently pulled the PICC line off and repeat line may be inserted. See orders for details. MMODL / IJN: [id number] /
--- NOTE | 2021-09-09 20:31 | PN ---
PROGRESS NOTE DATE OF SERVICE: 09/09/2021 REASON FOR FOLLOWUP: 1. Pneumonia, possible postobstructive. 2. Positive COVID test. INTERVAL HISTORY: The patient is afebrile. The patient is complaining of feeling weak, lethargic. The patient denies having any chest pain. He did have a cough, not bringing up any sputum. No abdominal pain or diarrhea. PHYSICAL EXAMINATION: Blood pressure 145/70 with a pulse of 63, temperature 97.8. He is 90% on 6 L nasal cannula. General description is an elderly male lying in bed in no distress. Respiratory system: Unlabored breathing, decreased intensity of breath sounds. No wheeze. Heart S1, S2. Regular rate and rhythm. Abdomen soft, no tenderness. LABS: Hemoglobin is 7.9, white count 12.6, creatinine 0.90. DIAGNOSTIC IMPRESSION AND PLAN: Patient with pneumonia, possibly postobstructive. Also has positive COVID test, in this patient covered with Zosyn, dexamethasone, Eliquis, zinc and ascorbic acid; to continue. Try to obtain a sputum sample to narrow down antibiotics and continue supportive care. MMODL / IJN: [id number] /
[2021-09-09 20:53] LABS: Glucose,Whole Blood 136 mg/dL (75-99)
--- NOTE | 2021-09-09 21:19 | P.PN ---
Subjective Progress Note Date: 09/08/21 Principal diagnosis: No acute events overnight, hemoglobin remains 7.5, vit D very low at 12. Still will shortness of breath, 8L High Flow. Afebrile today. IgG adequate Objective - Vital Signs Vital signs: Vital Signs Temp 97.4 F L 09/08/21 10:45 Pulse 52 L 09/08/21 13:42 Resp 24 09/08/21 13:42 BP 119/71 09/08/21 13:42 Pulse Ox 99 09/08/21 13:42 Intake & Output 09/07/21 09/08/21 09/08/21 18:59 06:59 18:59 Output Total 200 Balance -200 Output: Urine 200 Other: Voiding Method Urinal Diaper # Voids 2 3 # Bowel Movements 1 # Emeses 1 - Exam mild increased resp effort Sleeping Pale HR: Decreased in 50s abdomen soft Edema trace in ble - Labs CBC & Chem 7: 09/09/21 14:52 09/09/21 14:52 Labs: Abnormal Lab Results - Last 24 Hours (Table) 09/07/21 09/07/21 09/07/21 Range/Units 10:24 10:24 10:24 RBC (4.30-5.90) m/uL Hgb (13.0-17.5) gm/dL Hct (39.0-53.0) % MCV (80.0-100.0) fL MCHC (31.0-37.0) g/dL RDW (11.5-15.5) % Neutrophils # (1.3-7.7) k/uL Lymphocytes # (1.0-4.8) k/uL Retic Count 3.42 H (0.10-1.80) % Haptoglobin 384.0 H (31.2-198.0) mg/dL D-Dimer (<0.60) mg/L FEU BUN (9-20) mg/dL Glucose (74-99) mg/dL POC Glucose (mg/dL) (75-99) mg/dL Iron 46 L (65-175) ug/dL TIBC 196 L (228-460) ug/dL Transferrin 140.0 L (204.0-354.0) mg/dL Ferritin 3999.0 H (22.0-322.0) ng/mL Lactate Dehydrogenase 440 H (120-246) U/L C-Reactive Protein (<1.0) mg/dL Vitamin D 25-Hydroxy 12.0 L (30.0-100.0) ng/mL Amorphous Sediment (None) /hpf 09/07/21 09/07/21 09/08/21 Range/Units 16:51 21:20 04:52 RBC (4.30-5.90) m/uL Hgb (13.0-17.5) gm/dL Hct (39.0-53.0) % MCV (80.0-100.0) fL MCHC (31.0-37.0) g/dL RDW (11.5-15.5) % Neutrophils # (1.3-7.7) k/uL Lymphocytes # (1.0-4.8) k/uL Retic Count (0.10-1.80) % Haptoglobin (31.2-198.0) mg/dL D-Dimer 3.97 H (<0.60) mg/L FEU BUN (9-20) mg/dL Glucose (74-99) mg/dL POC Glucose (mg/dL) 129 H 108 H (75-99) mg/dL Iron (65-175) ug/dL TIBC (228-460) ug/dL Transferrin (204.0-354.0) mg/dL Ferritin (22.0-322.0) ng/mL Lactate Dehydrogenase (120-246) U/L C-Reactive Protein (<1.0) mg/dL Vitamin D 25-Hydroxy (30.0-100.0) ng/mL Amorphous Sediment (None) /hpf 09/08/21 09/08/21 09/08/21 Range/Units 04:52 04:52 04:52 RBC 2.45 L (4.30-5.90) m/uL Hgb 7.5 L (13.0-17.5) gm/dL Hct 24.8 L (39.0-53.0) % MCV 101.2 H (80.0-100.0) fL MCHC 30.4 L (31.0-37.0) g/dL RDW 17.9 H (11.5-15.5) % Neutrophils # 8.5 H (1.3-7.7) k/uL Lymphocytes # 0.6 L (1.0-4.8) k/uL Retic Count (0.10-1.80) % Haptoglobin (31.2-198.0) mg/dL D-Dimer (<0.60) mg/L FEU BUN 24 H (9-20) mg/dL Glucose 125 H (74-99) mg/dL POC Glucose (mg/dL) (75-99) mg/dL Iron (65-175) ug/dL TIBC (228-460) ug/dL Transferrin (204.0-354.0) mg/dL Ferritin (22.0-322.0) ng/mL Lactate Dehydrogenase (120-246) U/L C-Reactive Protein 8.4 H (<1.0) mg/dL Vitamin D 25-Hydroxy (30.0-100.0) ng/mL Amorphous Sediment (None) /hpf 09/08/21 09/08/21 09/08/21 Range/Units 05:03 07:23 08:00 RBC (4.30-5.90) m/uL Hgb (13.0-17.5) gm/dL Hct (39.0-53.0) % MCV (80.0-100.0) fL MCHC (31.0-37.0) g/dL RDW (11.5-15.5) % Neutrophils # (1.3-7.7) k/uL Lymphocytes # (1.0-4.8) k/uL Retic Count (0.10-1.80) % Haptoglobin (31.2-198.0) mg/dL D-Dimer (<0.60) mg/L FEU BUN (9-20) mg/dL Glucose (74-99) mg/dL POC Glucose (mg/dL) 147 H 117 H (75-99) mg/dL Iron (65-175) ug/dL TIBC (228-460) ug/dL Transferrin (204.0-354.0) mg/dL Ferritin (22.0-322.0) ng/mL Lactate Dehydrogenase (120-246) U/L C-Reactive Protein (<1.0) mg/dL Vitamin D 25-Hydroxy (30.0-100.0) ng/mL Amorphous Sediment Occasional H (None) /hpf 09/08/21 Range/Units 12:09 RBC (4.30-5.90) m/uL Hgb (13.0-17.5) gm/dL Hct (39.0-53.0) % MCV (80.0-100.0) fL MCHC (31.0-37.0) g/dL RDW (11.5-15.5) % Neutrophils # (1.3-7.7) k/uL Lymphocytes # (1.0-4.8) k/uL Retic Count (0.10-1.80) % Haptoglobin (31.2-198.0) mg/dL D-Dimer (<0.60) mg/L FEU BUN (9-20) mg/dL Glucose (74-99) mg/dL POC Glucose (mg/dL) 207 H (75-99) mg/dL Iron (65-175) ug/dL TIBC (228-460) ug/dL Transferrin (204.0-354.0) mg/dL Ferritin (22.0-322.0) ng/mL Lactate Dehydrogenase (120-246) U/L C-Reactive Protein (<1.0) mg/dL Vitamin D 25-Hydroxy (30.0-100.0) ng/mL Amorphous Sediment (None) /hpf Microbiology - Last 24 Hours (Table) 09/07/21 10:23 Blood Culture - Preliminary Blood No Growth after 24 hours Assessment and Plan (1) COVID-19 Narrative/Plan: Pulm is following Vitamin D is very low, will require increased dosage over the 1000IU, will increase to D3 10K daily x14 days for improved immune support He is also on Dexamethasone per COVID protocol, will add PPI Current Visit: Yes Status: Acute Code(s): U07.1 - COVID-19 SNOMED Code(s): 053263633 (2) Non-small cell lung cancer (NSCLC) Narrative/Plan: - Status Post 3 cycles of cisplatin and [place]/Radiation - to follow - Recent imaging with suspicion of progression although with active COVID infection unable to determine definitively, await resolution of active infection and recheck imaging lungs 2-3 months Current Visit: Yes Status: Acute Code(s): C34.90 - MALIGNANT NEOPLASM OF UNSP PART OF UNSP BRONCHUS OR LUNG SNOMED Code(s): 103215988 (3) Mental status alteration Narrative/Plan: - Probable infectious/inflamatory encephalopathy - Will complete full infectious work-up and check hepatic function - MRI of the brain for possible metastatic disease was negative Current Visit: Yes Status: Acute Code(s): R41.82 - ALTERED MENTAL STATUS, UNSPECIFIED SNOMED Code(s): 497087287 (4) Macrocytic anemia Narrative/Plan: Work-up ordered Current Visit: Yes Status: Acute Code(s): D53.9 - NUTRITIONAL ANEMIA, UNSPECIFIED SNOMED Code(s): 05731737 Plan: Conitnue supportive care and daily CBC Physician Attest: I have completed the full history and physical and developed the full impression and plan, agree with dictation, dictated as a scribe.
[2021-09-09] MEDS: HYDROcodone/APAP 5-325MG 1 EACH TAB PO PRN (23:39)
[2021-09-10] MEDS: SODIUM CHLORIDE 0.9% 1,000 ML IV SCH ×2 (06:23→17:22)
--- NOTE | 2021-09-10 07:12 | XR ---
EXAMINATION TYPE: XR chest 1V portable DATE OF EXAM: 09/10/2021 CLINICAL HISTORY: Difficulty breathing and covid progress study. History of lung cancer. TECHNIQUE: Single AP portable upright view of the chest is obtained. COMPARISON: Chest x-ray from [address] 5 days ago. FINDINGS: The osseous structures remain demineralized. Background chronic emphysematous and parenchy mal fibrotic change redemonstrated. Heart size stable and mildly enlarged. Persistent left-sided volu me loss with mediastinal shift. Persistent bilateral multifocal increased opacities more prominent on the left where there is underlying neoplasm noted. IMPRESSION: Mild cardiomegaly and chronic emphysematous change with persistent left-sided volume los s and bilateral multifocal increased opacities consistent with coivd-19 infection are all redemonstra erika. Underlying left lung neoplasm noted.
[2021-09-10 07:57] LABS: Glucose,Whole Blood 143 mg/dL (75-99)
[2021-09-10] MEDS: PIPERACILLIN-TAZOBACTAM 3.375 GM in SODIUM CHLORIDE 0.9% 100 ML IVPB SCH ×2 (10:00→17:48)
[2021-09-10 10:03] LABS: Basophils # (A) 0.02 X 10*3/uL (0.00-0.10); Basophils % (A) 0.2 %; Eosinophils # (A) 0 X 10*3/uL (0.04-0.35); Eosinophils % (A) 0 %; HGB 7.1 g/dL (13.0-17.0); Lymphocytes # (A) 0.75 X 10*3/uL (0.90-5.00); Lymphocytes % (A) 5.9 %; MCH 30.2 pg (27.0-32.0); MCHC 29.6 g/dL (32.0-37.0); MCV 102.1 fL (80.0-97.0); Mean Platelet Volume 9.8 fL (9.5-12.2); Monocytes # (A) 1.04 X 10*3/uL (0.20-1.00); Monocytes % (A) 8.2 %; Neutrophils # (A) 10.58 X 10*3/uL (1.80-7.70); Neutrophils % (A) 83.1 %; Platelet Count 223 X 10*3/uL (140-440); RBC 2.35 X 10*6/uL (4.40-5.60); RDW 18.6 % (11.5-14.5); WBC 12.72 X 10*3/uL (4.50-10.00)
[2021-09-10 10:44] LABS: Albumin/Globulin Ratio 1.11 (1.60-3.17); Anion Gap 14.4 mmol/L (10.00-18.00); BUN/Creat Ratio 22.23 Ratio (12.00-20.00); Blood Urea Nitrogen 21.3 mg/dL (9.0-27.0); Calcium 10.1 mg/dL (8.7-10.3); Carbon Dioxide 21.5 mmol/L (20.0-27.5); Globulin 2.7 g/dL (1.6-3.3); Non-African American GFR(CKD) 81.1 (60.0-200.0); Potassium 3.9 mmol/L (3.5-5.5); Total Bilirubin 0.4 mg/dL (0.30-1.20); Total Protein 5.7 g/dL (6.2-8.2)
[2021-09-10] MEDS: INSULIN ASPART (NovoLOG) 100 UNIT/ML VIAL SQ SCH ×4 (11:24→21:36)
[2021-09-10] MEDS: NICOTINE 21MG/24HR PATCH TRANSDERM SCH (11:24)
[2021-09-10] MEDS: DEXAMETHASONE SOD PHOSPHATE 10 MG/ML 1 ML VIAL IVP SCH (11:25)
[2021-09-10] MEDS: LOSARTAN 50 MG TAB PO SCH (11:34)
[2021-09-10] MEDS: ATORVASTATIN 20 MG TAB PO SCH (11:34)
[2021-09-10] MEDS: hydrALAZINE HCL 50 MG TAB PO SCH ×2 (11:34→21:44)
[2021-09-10] MEDS: THIAMINE 100 MG TAB PO SCH (11:34)
[2021-09-10] MEDS: QUEtiapine 25 MG TAB PO SCH (11:34)
[2021-09-10] MEDS: POTASSIUM CHLORIDE ER 20 MEQ TAB.ER PO SCH (11:34)
[2021-09-10] MEDS: glipiZIDE 10 MG TAB PO SCH (11:34)
[2021-09-10] MEDS: ASCORBIC ACID 500 MG TAB PO SCH (11:35)
[2021-09-10] MEDS: PANTOPRAZOLE 40 MG TABLET PO SCH (11:35)
[2021-09-10] MEDS: BACLOFEN 10 MG TAB PO SCH ×3 (11:35→21:47)
[2021-09-10] MEDS: ZINC SULFATE 220 MG CAP PO SCH (11:35)
[2021-09-10] MEDS: APIXABAN 5 MG TAB PO SCH ×2 (11:35→21:47)
[2021-09-10] MEDS: CHOLECALCIFEROL 125 MCG (5000 IU) TABLET PO SCH (11:35)
[2021-09-10] MEDS: CLOPIDOGREL 75 MG TAB PO SCH (11:35)
[2021-09-10 11:57] LABS: Glucose,Whole Blood 147 mg/dL (75-99)
[2021-09-10] MEDS: SOTALOL 120 MG TAB PO SCH ×2 (15:00→21:48)
[2021-09-10] MEDS: DILTIAZEM CD 180 MG CAP.ER.24H PO SCH (15:00)
--- NOTE | 2021-09-10 15:21 | P.PN ---
Subjective This is a pleasant 66 years old male with left lung cancer with metastases evidence of metastasis to the lung, liver and bone presents with respiratory distress secondary to covert infection with superimposed bacterial infection most likely suspected post obstructive pneumonia and is being followed closely by pulmonary and infectious disease team as well as was oncology team, he is currently covered with Zosyn, dexamethasone, vitamin C, D and zinc, normal saline at 75 mL/h, also he is on home dose of Eliquis at 5 mg. He is anemic with hemoglobin coming down slightly 7.9 direct 7.1. His vitamin D was low also has been replaced. His moderately hypoxic requiring 6 L of oxygen to keep saturation around 93%. His glucose was 71-140 this morning however patient is not eating due to his debilitation and severe medical condition and confusion, therefore we going to stop his glipizide 10 mg twice daily. He was on Percocet at home and he looks anxious and agitated here in view of his confusion was going to put him on morphine 4 mg for pain management Oncology recommended MRI of the brain as patient looks of generalized weakness but slightly more on the right side, no facial division, however because of his severe medical condition and confusion and agitation is not ordered for now WBC 12.7, d-dimer 3.9, LDH 440, C-reactive protein 8.4. Pro-calcitonin is 5.2 which is significantly elevated. Objective - Vital Signs Vital signs: Vital Signs Temp 97.9 F 09/10/21 10:00 Pulse 71 09/10/21 10:00 Resp 18 09/10/21 10:00 BP 137/77 09/10/21 10:00 Pulse Ox 93 L 09/10/21 10:00 Intake & Output 09/09/21 09/10/21 09/10/21 18:59 06:59 18:59 Output Total 100 3 Balance -100 -3 Output: Urine 100 3 Other: Voiding Method Urinal Urinal Diaper Diaper Diaper Incontinent - Exam -GENERAL: The patient is awake but confused, with tachypnea and mild respiratory distress distress. Well developed, well nourished. HEENT: Pupils are round and equally reacting to light. EOMI. No scleral icterus. No conjunctival pallor. Normocephalic, atraumatic. No pharyngeal erythema. No thyromegaly. CARDIOVASCULAR: S1 and S2 present. No murmurs, rubs, or gallops. -PULMONARY: Chest is clear to auscultation, bilateral crepitation ABDOMEN: Soft, nontender, nondistended, normoactive bowel sounds. No palpable organomegaly. MUSCULOSKELETAL: No joint swelling or deformity. EXTREMITIES: No cyanosis, clubbing, or pedal edema. -NEUROLOGICAL: Exam is limited by patient condition and altered mental status, however cranial nerves intact. He has generalized weakness but more on the right side. Meningeal signs are absent SKIN: No rashes. no petechiae. - Labs CBC & Chem 7: 09/10/21 04:04 09/10/21 04:04 Labs: Abnormal Lab Results - Last 24 Hours (Table) 09/09/21 09/09/21 09/09/21 Range/Units 14:52 14:52 16:39 WBC 12.6 H (3.8-10.6) k/uL RBC 2.48 L (4.30-5.90) m/uL Hgb 7.9 L (13.0-17.5) gm/dL Hct 25.4 L (39.0-53.0) % MCV 102.5 H (80.0-100.0) fL MCHC (32.0-37.0) g/dL RDW 18.5 H (11.5-15.5) % Absolute Nucleated RBC (0.00-0.00) X 10*3/uL Immature Gran # (0.00-0.04) X 10*3/uL Neutrophils # 11.0 H (1.3-7.7) k/uL Lymphocytes # 0.7 L (1.0-4.8) k/uL Monocytes # (0.20-1.00) X 10*3/uL Eosinophils # (0.04-0.35) X 10*3/uL NRBC/100 WBC Diff (0.0-0.0) /100 WBCS BUN 24 H (9-20) mg/dL BUN/Creatinine Ratio (12.00-20.00) Ratio Glucose 53 L (74-99) mg/dL POC Glucose (mg/dL) 71 L (75-99) mg/dL AST 95 H (17-59) U/L Alkaline Phosphatase 195 H (38-126) U/L Total Protein 6.0 L (6.3-8.2) g/dL Albumin 3.1 L (3.5-5.0) g/dL Albumin/Globulin Ratio (1.60-3.17) g/dL 09/09/21 09/10/21 09/10/21 Range/Units 20:48 04:04 04:04 WBC 12.72 H (3.8-10.6) k/uL RBC 2.35 L (4.30-5.90) m/uL Hgb 7.1 L (13.0-17.5) gm/dL Hct 24.0 L (39.0-53.0) % MCV 102.1 H (80.0-100.0) fL MCHC 29.6 L (32.0-37.0) g/dL RDW 18.6 H (11.5-15.5) % Absolute Nucleated RBC 0.05 H (0.00-0.00) X 10*3/uL Immature Gran # 0.33 H (0.00-0.04) X 10*3/uL Neutrophils # 10.58 H (1.3-7.7) k/uL Lymphocytes # 0.75 L (1.0-4.8) k/uL Monocytes # 1.04 H (0.20-1.00) X 10*3/uL Eosinophils # 0 L (0.04-0.35) X 10*3/uL NRBC/100 WBC Diff 0.4 H (0.0-0.0) /100 WBCS BUN (9-20) mg/dL BUN/Creatinine Ratio 22.23 H (12.00-20.00) Ratio Glucose (74-99) mg/dL POC Glucose (mg/dL) 136 H (75-99) mg/dL AST 100 H (17-59) U/L Alkaline Phosphatase 187 H (38-126) U/L Total Protein 5.7 L (6.3-8.2) g/dL Albumin 3.0 L (3.5-5.0) g/dL Albumin/Globulin Ratio 1.11 L (1.60-3.17) g/dL 09/10/21 09/10/21 Range/Units 07:54 11:55 WBC (3.8-10.6) k/uL RBC (4.30-5.90) m/uL Hgb (13.0-17.5) gm/dL Hct (39.0-53.0) % MCV (80.0-100.0) fL MCHC (32.0-37.0) g/dL RDW (11.5-15.5) % Absolute Nucleated RBC (0.00-0.00) X 10*3/uL Immature Gran # (0.00-0.04) X 10*3/uL Neutrophils # (1.3-7.7) k/uL Lymphocytes # (1.0-4.8) k/uL Monocytes # (0.20-1.00) X 10*3/uL Eosinophils # (0.04-0.35) X 10*3/uL NRBC/100 WBC Diff (0.0-0.0) /100 WBCS BUN (9-20) mg/dL BUN/Creatinine Ratio (12.00-20.00) Ratio Glucose (74-99) mg/dL POC Glucose (mg/dL) 143 H 147 H (75-99) mg/dL AST (17-59) U/L Alkaline Phosphatase (38-126) U/L Total Protein (6.3-8.2) g/dL Albumin (3.5-5.0) g/dL Albumin/Globulin Ratio (1.60-3.17) g/dL Microbiology - Last 24 Hours (Table) 09/07/21 10:23 Blood Culture - Preliminary Blood No Growth after 72 hours 09/08/21 12:21 Blood Culture - Preliminary Blood No Growth after 24 hours 09/08/21 12:21 Blood Culture - Preliminary Blood No Growth after 24 hours Assessment and Plan Assessment: Bilateral Covid pneumonia Lung cancer is on the left lung with postobstructive pneumonia and metastasis to the lung, liver and bone Metabolic encephalopathy Diabetes mellitus with hyperglycemia Anemia Vitamin D deficiency Acute hypoxic respiratory failure Increased inflammatory markers Plan: A pleasant 66 years old male who presents with lung cancer, postobstructive pneumonia and bilateral covid pneumonia Continue with dexamethasone Continue with vitamin C, vitamin D and zinc Pulmonary consult Continue Zosyn Continue with gentle hydration Continue with the Eliquis Hold glipizide and continue with insulin sliding scale Labs and medication were reviewed.. Continue same treatment. Continue with symptomatic treatment. Resume home medication. Monitor lytes and vitals. DVT and GI prophylaxis. Further recommendationsas per clinical course of the patient DVT prophylaxis: Eliquis GI Prophylaxis: Ppi Prognosis is guarded and
--- NOTE | 2021-09-10 16:47 | P.PN ---
Subjective Progress Note Date: 09/10/21 This is a very pleasant 66-year-old male patient with known history of chronic obstructive pulmonary disease with FEV1 value of 86% of predicted, chronic and ongoing tobacco dependence greater than 50 years, atrial fibrillation anticoagulated with Eliquis, diabetes mellitus, gastroesophageal reflux disease, previous alcohol abuse, congestive heart failure. He was diagnosed with stage III non-small cell lung cancer in March 2021. He was last seen in our office 04/12/2021 following the biopsy. He was referred to oncology. He had completed 3 cycles of cisplatin and Almta/radiation in June 2021. He had been seen yesterday by radiation oncology and was felt to have had some altered mental status and was referred here to the emergency room for the same. He did test positive for COVID-19 infection. There is also concern regarding possible brain metastasis. Computed tomography scan of the brain revealed no acute intracranial hemorrhage or midline shift. There is mild to moderate diffuse c erebral atrophy greatest over bilateral frontal lobes and mild chronic small vessel ischemic changes. No masses or lesions detected. MRI of the brain is pending. Chest x-ray reveals mild cardiomegaly and chronic emphysematous changes with worsening right lower lung and left mid lower lung opacities which could reflect neoplastic progression along with developing acute infectious process on background left lower lung neoplasm. Possible COVID-[address] angiogram ruled out pulmonary embolism. Again extensive consolidation of the left lower lobe with increased compared to a computed tomography scan done one day prior. There is rounded 2 cm mass in the right lower lobe suspi cious for tumor. There are other smaller noncalcified nostrils in the right lung up to 8 mm also suspicious for tumor. White count 6.0. Hemoglobin 7.5. Platelet count 224. Lymphocytes 0.47. Sodium 133. Potassium 4.5. Creatinine 1.0. Glucose 118. AST 55. ALT 18. Alk phos 172. Patient is seen today in consultation on the regular medical floor. He is currently resting comfortably in bed. He is difficult to arouse. He did have some restlessness and was given Haldol earlier this morning. He is requiring 6 L high flow nasal cannula to maintain O2 saturation in the low 90s. He is afebrile. Hemodynamically stable. He's been initiated on cefazolin empirically. NicoDerm patch in place. Anticoagulated with Eliquis. On 09/08/2021 patient seen in follow-up on medical surgical floor, today she seems to be very lethargic, he is currently on 10 L of oxygen, earlier oxygen flow has been increased related to hypoxia, yesterday he was on 2 L of oxygen, his lung sounds are positive for diffuse rhonchi, he is noted to be more lethargic, Haldol and Risperdal were added for restlessness and confusion, patient is also getting Percocet, much more lethargic today, possibility of aspiration is also considered, patient also had some vomiting apparently. Currently patient is on Decadron 6 mg daily, he is on home dose Eliquis 5 mg twice a day, he is on Kefzol for empiric antibiotic coverage, patient is afebrile. However patient is significantly congested, with diffuse rhonchi, we' ll switch his antibiotic coverage to Zosyn for possibility of aspiration. CODE STATUS is DO NOT RESUSCITATE, patient has a known history of non-small cell lung cancer with possible progression. Medical oncology is following. Brain CT was completed on admission showing no acute intracranial hemorrhage or midline shift. Mild to moderate diffuse cerebral atrophy greatest over bilateral frontal lobes and mild chronic small vessel ischemic changes. Today's labs have been reviewed, white blood cell count is 9.9, hemoglobin is 7.9, d-dimer is 3.97, electrolytes are within normal limits, with sodium of 137, potassium of 4.1, chloride is 105, CO2 is 24, B1 is 24, creatinine is 0.96. His LDH on admission was not significantly elevated and was at 440, CRP level from today is 8.4, however his ferritin was significantly elevated at 3999, urinalysis showed no evidence of infection. Patient is being treated for possible pneumonia, likely related to aspiration or healthcare acquired, altered mental status related to possibility of sepsis, and COVID-19 infection. On 09/09/2021 patient is seen in follow-up on medical surgical floor. He seems to be less lethargic, although still confused, , does not appear to be in any respiratory distress, he is currently on 6 L of oxygen his pulse ox is about 90- 91%. Breathing comfortable, lung sounds are clear, no crackles auscultated, no rhonchi or wheezing. His oral intake has been poor, patient has been afebrile, blood pressure has been stable. Apparently last night when he got confused he pulled out his PICC line, cathLab is consulted for midline insertion. patient continues on IV Decadron 6 mg daily for a rate related pneumonia, he is on Zosyn which was started yesterday for possibility of bacterial superinfection, his pro-calcitonin level came back elevated at 5.29. bloodculture has been sent, showing no growth The patient is seen today 09/10/2021 in follow-up on the regular medical floor. He is arousable. Still confused. He drifts off easily. Early maintain O2 saturations in the low 90s on 6 L high flow nasal cannula. He is afebrile. Hemodynamically stable. Chest x-ray reveals mild cardiomegaly and chronic emphysematous changes with persistent left-sided volume loss and bilateral multifocal opacities consistent with COVID-19 infection. Underlying left lung neoplasm noted. Blood cultures reveal no growth. White count 12.7. Hemoglobin 7.1. Lymphocytes 0.75. Sodium 141 potassium 3.9. Creatinine 1.0. AST 100. ALT 29. He is continued on Decadron, Eliquis, vitamin supplements. Objective - Vital Signs Vital signs: Vital Signs Temp 98.0 F 09/10/21 14:00 Pulse 79 09/10/21 14:00 Resp 18 09/10/21 14:00 BP 130/68 09/10/21 14:00 Pulse Ox 93 L 09/10/21 14:00 Intake & Output 09/09/21 09/10/21 09/10/21 18:59 06:59 18:59 Output Total 100 3 Balance -100 -3 Output: Urine 100 3 Other: Voiding Method Urinal Urinal Diaper Diaper Diaper Incontinent - Exam GENERAL EXAM: Arousable, confused, frail, 6-year-old male patient on 6 L high flow nasal cannula, fairly, comfortable in no apparent distress. HEAD: Normocephalic. EYES: Normal reaction of pupils, equal size. NOSE: Clear with pink turbinates. THROAT: No erythema or exudates. NECK: No masses, no JVD. CHEST: No chest wall deformity. LUNGS: Equal air entry with crackles in the bilateral bases, scattered rhonchi. CVS: S1 and S2 normal with no audible murmur, regular rhythm. ABDOMEN: No hepatosplenomegaly, normal bowel sounds, no guarding or rigidity. SPINE: No scoliosis or deformity SKIN: No rashes CENTRAL NERVOUS SYSTEM: Confused, tone is normal in all 4 extremities. EXTREMITIES: There is no peripheral edema. No clubbing, no cyanosis. Peripheral pulses are intact. - Labs CBC & Chem 7: 09/10/21 04:04 09/10/21 04:04 Labs: Abnormal Lab Results - Last 24 Hours (Table) 09/09/21 09/10/21 09/10/21 Range/Units 20:48 04:04 04:04 WBC 12.72 H (4.50-10.00) X 10*3/uL RBC 2.35 L (4.40-5.60) X 10*6/uL Hgb 7.1 L (13.0-17.0) g/dL Hct 24.0 L (39.6-50.0) % MCV 102.1 H (80.0-97.0) fL MCHC 29.6 L (32.0-37.0) g/dL RDW 18.6 H (11.5-14.5) % Absolute Nucleated RBC 0.05 H (0.00-0.00) X 10*3/uL Immature Gran # 0.33 H (0.00-0.04) X 10*3/uL Neutrophils # 10.58 H (1.80-7.70) X 10*3/uL Lymphocytes # 0.75 L (0.90-5.00) X 10*3/uL Monocytes # 1.04 H (0.20-1.00) X 10*3/uL Eosinophils # 0 L (0.04-0.35) X 10*3/uL NRBC/100 WBC Diff 0.4 H (0.0-0.0) /100 WBCS BUN/Creatinine Ratio 22.23 H (12.00-20.00) Ratio POC Glucose (mg/dL) 136 H (75-99) mg/dL AST 100 H (14-35) U/L Alkaline Phosphatase 187 H (41-126) U/L Total Protein 5.7 L (6.2-8.2) g/dL Albumin 3.0 L (3.8-4.9) g/dL Albumin/Globulin Ratio 1.11 L (1.60-3.17) g/dL 01/08/22 01/08/22 Range/Units 07:54 11:55 WBC (4.50-10.00) X 10*3/uL RBC (4.40-5.60) X 10*6/uL Hgb (13.0-17.0) g/dL Hct (39.6-50.0) % MCV (80.0-97.0) fL MCHC (32.0-37.0) g/dL RDW (11.5-14.5) % Absolute Nucleated RBC (0.00-0.00) X 10*3/uL Immature Gran # (0.00-0.04) X 10*3/uL Neutrophils # (1.80-7.70) X 10*3/uL Lymphocytes # (0.90-5.00) X 10*3/uL Monocytes # (0.20-1.00) X 10*3/uL Eosinophils # (0.04-0.35) X 10*3/uL NRBC/100 WBC Diff (0.0-0.0) /100 WBCS BUN/Creatinine Ratio (12.00-20.00) Ratio POC Glucose (mg/dL) 143 H 147 H (75-99) mg/dL AST (14-35) U/L Alkaline Phosphatase (41-126) U/L Total Protein (6.2-8.2) g/dL Albumin (3.8-4.9) g/dL Albumin/Globulin Ratio (1.60-3.17) g/dL Microbiology - Last 24 Hours (Table) 09/08/21 12:21 Blood Culture - Preliminary Blood No Growth after 48 hours 09/08/21 12:21 Blood Culture - Preliminary Blood No Growth after 48 hours 09/07/21 10:23 Blood Culture - Preliminary Blood No Growth after 72 hours Assessment and Plan Assessment: 1 Altered mental status of unclear etiology. Possibly related to metastatic lung cancer to the brain. MRI is pending patient has not been stable enough. 2 Stage III non-small cell lung cancer diagnosed in March 2021. Completed 3 cycles of cisplatin and Almta/radiation in June 2021 3 Acute CoVID infection, currently on 6 L high flow nasal cannula 4 Atrial fibrillation, anticoagulated with Eliquis 5 Diabetes mellitus 6 Chronic and ongoing tobacco dependence of greater than 50 years 7 Coronary artery disease with previous stent placement 2. 8 Hyperlipidemia 9 History of alcohol abuse 10 Hypertension Plan: The patient was seen and evaluated Currently on 6 L high flow nasal cannula Remains anticoagulated with Eliquis Continue Decadron, vitamin supplements Prognosis remains poor The patient is a DO NOT RESUSCITATE/DO NOT INTUBATE CODE STATUS May be considered for hospice We will continue to follow I, the cosigning physician, performed a history & physical examination of the patient. Lungs sounds with crackles in the posterior bases, few scattered rhonchi, diminished left lung base. Maintaining O2 saturations in the 90s on 6 L/m per nasal cannula. I discussed the assessment and plan of care with my nurse practitioner, Viola Salinas. I attest to the above note as dictated by her.
[2021-09-10 17:14] LABS: Glucose,Whole Blood 172 mg/dL (75-99)
--- NOTE | 2021-09-10 18:37 | PN ---
PROGRESS NOTE DATE OF SERVICE: 09/10/2021 REASON FOR FOLLOWUP: Pneumonia. INTERVAL HISTORY: The patient is afebrile. The patient is still sleepy, lethargic, and was not a very good historian. No vomiting, diarrhea or any changes reported by the nursing staff. PHYSICAL EXAMINATION: Blood pressure 130/68, pulse of 79, temperature 98. He is 93% on 6 L nasal cannula. General description is an elderly male lying in bed in no distress. Respiratory system: Unlabored breathing, decreased intensity of breath sounds. No wheeze. Heart S1, S2. Regular rate and rhythm. Abdomen soft, no tenderness. LABS: Hemoglobin 7.1, white count , creatinine 1.0. DIAGNOSTIC IMPRESSION AND PLAN: Patient with pneumonia, concern for possible postobstructive with a component of COVID- 19 infection. Patient is covered with Zosyn, Decadron, Eliquis, zinc and ascorbic acid; to continue along with respiratory support, and monitor his clinical course closely. MMODL / IJN: [id number] /
[2021-09-10 20:16] LABS: Glucose,Whole Blood 175 mg/dL (75-99)
[2021-09-10] MEDS: ACETAMINOPHEN TAB 325 MG TAB PO PRN (21:55)
[2021-09-11] MEDS: PIPERACILLIN-TAZOBACTAM 3.375 GM in SODIUM CHLORIDE 0.9% 100 ML IVPB SCH ×3 (00:49→18:14)
[2021-09-11] MEDS: ACETAMINOPHEN TAB 325 MG TAB PO PRN ×3 (03:07→22:00)
[2021-09-11] MEDS: INSULIN ASPART (NovoLOG) 100 UNIT/ML VIAL SQ SCH ×4 (07:00→22:00)
[2021-09-11 07:21] LABS: Glucose,Whole Blood 91 mg/dL (75-99)
[2021-09-11] MEDS: DILTIAZEM CD 180 MG CAP.ER.24H PO SCH (08:00)
[2021-09-11] MEDS: DEXAMETHASONE SOD PHOSPHATE 10 MG/ML 1 ML VIAL IVP SCH (08:01)
[2021-09-11] MEDS: SOTALOL 120 MG TAB PO SCH ×2 (08:01→22:00)
[2021-09-11] MEDS: THIAMINE 100 MG TAB PO SCH (08:01)
[2021-09-11] MEDS: CHOLECALCIFEROL 125 MCG (5000 IU) TABLET PO SCH (08:01)
[2021-09-11] MEDS: APIXABAN 5 MG TAB PO SCH ×2 (08:01→22:00)
[2021-09-11] MEDS: POTASSIUM CHLORIDE ER 20 MEQ TAB.ER PO SCH (08:01)
[2021-09-11] MEDS: PANTOPRAZOLE 40 MG TABLET PO SCH (08:01)
[2021-09-11] MEDS: ZINC SULFATE 220 MG CAP PO SCH (08:01)
[2021-09-11] MEDS: QUEtiapine 25 MG TAB PO SCH (08:01)
[2021-09-11] MEDS: ASCORBIC ACID 500 MG TAB PO SCH (08:02)
[2021-09-11] MEDS: BACLOFEN 10 MG TAB PO SCH ×3 (08:02→22:00)
[2021-09-11] MEDS: LOSARTAN 50 MG TAB PO SCH (08:02)
[2021-09-11] MEDS: SODIUM CHLORIDE 0.9% 1,000 ML IV SCH (08:02)
[2021-09-11] MEDS: NICOTINE 21MG/24HR PATCH TRANSDERM SCH (08:02)
[2021-09-11] MEDS: CLOPIDOGREL 75 MG TAB PO SCH (08:02)
[2021-09-11] MEDS: ATORVASTATIN 20 MG TAB PO SCH (08:02)
[2021-09-11] MEDS: hydrALAZINE HCL 50 MG TAB PO SCH ×2 (08:02→22:03)
[2021-09-11] MEDS: HYDROcodone/APAP 5-325MG 1 EACH TAB PO PRN (08:15)
--- NOTE | 2021-09-11 10:59 | MR ---
EXAMINATION TYPE: MR brain wo/w con DATE OF EXAM: 09/11/2021 COMPARISON: Prior MRI brain May 11, 2021. CT brain September 06, 2021 HISTORY: Altered mental status, assess for metastatic disease. TECHNIQUE: Multiplanar, multisequence images of the brain and brainstem is performed without and with IV contras t, utilizing 7 mL intravenous Gadavist . FINDINGS: Diffusion weighted images demonstrate tiny 5 mm focus of increased signal on diffusion weig hted images with diminished signal on ADC mapping showing subtle T2 hyperintense signal involving the inferior left frontal subcortical mayorga matter image 120 series 403 consistent with evolving acute la cunar infarct. There is mild ventricular and sulcal prominence redemonstrated. There is new rim-enhancing 5 mm lesio n left frontal lobe at level of the posterior head of caudate nucleus involving central basal ganglia and crux of the internal capsule postcontrast axial image 18 with surrounding vasogenic edema. Addit ional suspicious new 3 to 4 mm posterior right cerebellar lesion coronal image 30 and punctate 2 mm r ight cerebellar lesion and coronal image 28. Cannot exclude fourth 1 to 2 mm punctate enhancing left cerebellar lesion coronal image 30. Midline structures demonstrate normal morphology. The craniocervical junction appears within normal limits. The dural venous sinuses appear patent. The visualized sinuses are clear and the globes are i ntact. Increased fluid signal left mastoid air cells now present. IMPRESSION: 1. Small evolving acute lacunar infarct inferior left frontal subcortical mayorga matter. 2. Confirmation of new metastatic disease with dominant left sided rim-enhancing 5 mm lesion involvin g the left internal capsule and posterior aspect head of caudate nucleus with surrounding vasogenic e ramírez. 3. New left sided mastoid fluid raises concern for left-sided mastoiditis, correlate clinically. A Yellow level critical message alert has been initiated for Azael Shepherd MD via the [employer] Critical Results System on 09/11/2021 10:56 AM. This message alert has been sent to Azael Shepherd MD via the preferences provided by the clinician for the receipt of Radiology Critical Findings. Message ID [id number].
[2021-09-11 12:02] LABS: Glucose,Whole Blood 281 mg/dL (75-99)
--- NOTE | 2021-09-11 12:07 | P.PN ---
Subjective Progress Note Date: 09/11/21 Principal diagnosis: COVID pneumonia Lung cancer Brain met's MRI eder with brain met, vasogenic edema, and possible infarcts. Objective - Vital Signs Vital signs: Vital Signs Temp 97.5 F L 09/11/21 10:00 Pulse 62 09/11/21 10:00 Resp 17 09/11/21 10:00 BP 120/72 09/11/21 10:00 Pulse Ox 92 L 09/11/21 10:00 Intake & Output 09/10/21 09/11/21 09/11/21 18:59 06:59 18:59 Other: Voiding Method Diaper Diaper Urinal Incontinent Incontinent Diaper Incontinent # Voids 4 2 - Exam Due to concerns of COVID-19 detection/exposure, in an effort to limit healthcare providers and transmission, parts of the encounter may of been obtained through chart review, family members, telephone/video visits, and/or discussion with primary team/nursing and ancillary staff. - Labs CBC & Chem 7: 09/10/21 04:04 09/10/21 04:04 Labs: Abnormal Lab Results - Last 24 Hours (Table) 09/10/21 09/10/21 09/11/21 Range/Units 17:13 20:14 12:01 POC Glucose (mg/dL) 172 H 175 H 281 H (75-99) mg/dL Microbiology - Last 24 Hours (Table) 09/08/21 12:21 Blood Culture - Preliminary Blood No Growth after 48 hours 09/08/21 12:21 Blood Culture - Preliminary Blood No Growth after 48 hours 09/07/21 10:23 Blood Culture - Preliminary Blood No Growth after 72 hours Assessment and Plan Assessment: 1. COVID pneumonia 2. Lung cancer 3. Brain met's 4. Leukocytosis 5. Anemia Plan: Mr. Jason is a 66 yo male here for COVID pneumonia and AMS. Recently found to have lung cancer. CT head on admission negative. Persistent AMS. Brain MRI done, reviewed, revealing brain met's and vasogenic edema with possible infarcts. Hospice contacted. Comfort care is very reasonable. Metastatic lung cancer with brain met's is not curable. Agree with your assessment and plan. Due to concerns of COVID-19 detection/exposure, in an effort to limit healthcare providers and transmission, parts of the encounter may of been obtained through chart review, family members, telephone/video visits, and/or discussion with primary team/nursing and ancillary staff.
[2021-09-11] MEDS ORDERED: SODIUM CHLORIDE 0.65% NASAL SPRAY 44 ML BTL NASAL PRN (14:43)
[2021-09-11] MEDS: MORPHINE SULFATE 4 MG/ML SYRINGE IVP PRN (15:19)
--- NOTE | 2021-09-11 15:21 | P.PN ---
Subjective Progress Note Date: 09/11/21 Principal diagnosis: Coronavirus infection. This is a very pleasant 66-year-old male patient with known history of chronic obstructive pulmonary disease with FEV1 value of 86% of predicted, chronic and ongoing tobacco dependence greater than 50 years, atrial fibrillation anticoa gulated with Eliquis, diabetes mellitus, gastroesophageal reflux disease, previous alcohol abuse, congestive heart failure. He was diagnosed with stage III non-small cell lung cancer in March 2021. He was last seen in our office 04/12/2021 following the biopsy. He was referred to oncology. He had completed 3 cycles of cisplatin and Almta/radiation in June 2021. He had been seen yesterday by radiation oncology and was felt to have had some altered mental status and was referred here to the emergency room for the same. He did test positive for COVID-19 infection. There is also concern regarding possible brain metastasis. Computed tomography scan of the brain revealed no acute intracr anial hemorrhage or midline shift. There is mild to moderate diffuse cerebral atrophy greatest over bilateral frontal lobes and mild chronic small vessel ischemic changes. No masses or lesions detected. MRI of the brain is pending. Chest x-ray reveals mild cardiomegaly and chronic emphysematous changes with worsening right lower lung and left mid lower lung opacities which could reflect neoplastic progression along with developing acute infectious process on background left lower lung neoplasm. Possible COVID-[address] angiogram ruled out pulmonary embolism. Again extensive consolidation of the left lower lobe with increased compared to a computed tomography scan done one day prior. There is rounded 2 cm mass in the right lower lobe suspicious for tumor. There are other smaller noncalcified nostrils in the right lung up to 8 mm also suspicious for tumor. White count 6.0. Hemoglobin 7.5. Platelet count 224. Lymphocytes 0.47. Sodium 133. Potassium 4.5. Creatinine 1.0. Glucose 118. AST 55. ALT 18. Alk phos 172. Patient is seen today in consultation on the regular medical floor. He is currently resting comfortably in bed. He is difficult to arouse. He did have some restlessness and was given Haldol earlier this morning. He is requiring 6 L high flow nasal cannula to maintain O2 saturation in the low 90s. He is afebrile. Hemodynamically stable. He's been initiated on cefazolin empirically. NicoDerm patch in place. Anticoagulated with Eliquis. On 09/08/2021 patient seen in follow-up on medical surgical floor, today she seems to be very lethargic, he is currently on 10 L of oxygen, earlier oxygen flow has been increased related to hypoxia, yesterday he was on 2 L of oxygen, his lung sounds are positive for diffuse rhonchi, he is noted to be more lethargic, Haldol and Risperdal were added for restlessness and confusion, patient is also getting Percocet, much more lethargic today, possibility of aspiration is also considered, patient also had some vomiting apparently. Currently patient is on Decadron 6 mg daily, he is on home dose Eliquis 5 mg twice a day, he is on Kefzol for empiric antibiotic coverage, patient is afebrile. However patient is significantly congested, with diffuse rhonchi, we'll switch his antibiotic coverage to Zosyn for possibility of aspiration. CODE STATUS is DO NOT RESUSCITATE, patient has a known history of non-small cell lung cancer with possible progression. Medical oncology is following. Brain CT was completed on admission showing no acute intracranial hemorrhage or midline shift. Mild to moderate diffuse cerebral atrophy greatest over bilateral frontal lobes and mild chronic small vessel ischemic changes. Today's labs have been reviewed, white blood cell count is 9.9, hemoglobin is 7.9, d-dimer is 3.97, electrolytes are within normal limits, with sodium of 137, potassium of 4.1, chloride is 105, CO2 is 24, B1 is 24, creatinine is 0.96. His LDH on admission was not significantly elevated and was at 440, CRP level from today is 8.4, however his ferritin was significantly elevated at 3999, urinalysis showed no evidence of infection. Patient is being treated for possible pneumonia, likely related to aspiration or healthcare acquired, altered mental status related to possibility of sepsis, and COVID-19 infection. On 09/09/2021 patient is seen in follow-up on medical surgical floor. He seems to be less lethargic, although still confused, , does not appear to be in any respiratory distress, he is currently on 6 L of oxygen his pulse ox is about 90- 91%. Breathing comfortable, lung sounds are clear, no crackles auscultated, no rhonchi or wheezing. His oral intake has been poor, patient has been afebrile, blood pressure has been stable. Apparently last night when he got confused he pulled out his PICC line, cathLab is consulted for midline insertion. patient continues on IV Decadron 6 mg daily for a rate related pneumonia, he is on Zosyn which was started yesterday for possibility of bacterial superinfection, his pro-calcitonin level came back elevated at 5.29. bloodculture has been sent, showing no growth The patient is seen today 09/10/2021 in follow-up on the regular medical floor. He is arousable. Still confused. He drifts off easily. Early maintain O2 saturations in the low 90s on 6 L high flow nasal cannula. He is afebrile. Hemodynamically stable. Chest x-ray reveals mild cardiomegaly and chronic emphysematous changes with persistent left-sided volume loss and bilateral multifocal opacities consistent with COVID-19 infection. Underlying left lung neoplasm noted. Blood cultures reveal no growth. White count 12.7. Hemoglobin 7.1. Lymphocytes 0.75. Sodium 141 potassium 3.9. Creatinine 1.0. AST 100. ALT 29. He is continued on Decadron, Eliquis, vitamin supplements. Progress note dated 09/11/2021. The patient is seen on the general medical floor, room 465. The patient is not receiving any IV fluids. He is on 5 L nasal cannula. The patient is a bit confused, but does arouse, and does answer questions appropriately advanced. No new laboratory data today. Brain MRI shows small evolving acute lacunar infarct, inferior left frontal subcortical mayorga matter, confirmation metastatic disease with dominant left sided rim-enhancing 5 mm lesion involving the left internal capsule and posterior aspect of caudate nucleus with surrounding vasogenic edema, and new left-sided mastoid fluid raises concern for left-sided mastoiditis. Objective - Vital Signs Vital signs: Vital Signs Temp 97.5 F L 09/11/21 10:00 Pulse 62 09/11/21 10:00 Resp 17 09/11/21 10:00 BP 120/72 09/11/21 10:00 Pulse Ox 92 L 09/11/21 10:00 Intake & Output 09/10/21 09/11/21 09/11/21 18:59 06:59 18:59 Other: Voiding Method Diaper Diaper Urinal Incontinent Incontinent Diaper Incontinent # Voids 4 2 - Exam No acute distress, intermittently confused, currently on nasal O2 at 5 L. HEENT examination is grossly unremarkable. Neck supple. Full range of motion. No adenopathy thyromegaly or neck vein distention. Cardiovascular examination reveals regular rhythm rate. S1-S2 normal. No S3 or S4. No discernible murmur noted. Heart rate 62 bpm. Lungs reveal scattered coarse rhonchi. Breath sounds equal bilaterally. Bibasilar crackles. No wheezes. Saturations 92% on 5 L nasal cannula. Abdomen soft bowel sounds are heard. No masses or tenderness. Extremities are intact. No cyanosis clubbing or edema. Skin is without rash or lesion. Neurologic examination is brief but nonfocal. - Labs CBC & Chem 7: 09/10/21 04:04 09/10/21 04:04 Labs: Abnormal Lab Results - Last 24 Hours (Table) 09/10/21 09/10/21 09/11/21 Range/Units 17:13 20:14 12:01 POC Glucose (mg/dL) 172 H 175 H 281 H (75-99) mg/dL Microbiology - Last 24 Hours (Table) 09/08/21 12:21 Blood Culture - Preliminary Blood No Growth after 72 hours 09/08/21 12:21 Blood Culture - Preliminary Blood No Growth after 72 hours 09/07/21 10:23 Blood Culture - Preliminary Blood No Growth after 96 hours Assessment and Plan Assessment: 1 Altered mental status of unclear etiology, secondary to metastatic lesions to the brain from his primary lung cancer. 2 Stage III non-small cell lung cancer diagnosed in March 2021. Completed 3 cycles of cisplatin and Alimta/radiation in June 2021. 3 Acute CoVID infection, currently on 6 L high flow nasal cannula. 4 Atrial fibrillation, anticoagulated with Eliquis. 5 Diabetes mellitus. 6 Chronic and ongoing tobacco dependence of greater than 50 years. 7 Coronary artery disease with previous stent placement 2. 8 Hyperlipidemia. 9 History of alcohol abuse. 10 Hypertension. Plan: Plan dated 09/11/2021. The results of the MRI are noted. The patient is already on Decadron 6 mg daily. That should probably be increased to 6 mg every 6 hours. Additional recommendations and suggestions are forthcoming. The patient is a no code. We'll continue to follow. Prognosis is very poor. The patient also remains on vitamins. Time with Patient: Less than 30
[2021-09-11] MEDS: DEXAMETHASONE SOD PHOSPHATE 4 MG/ML 1 ML VIAL IVP SCH ×2 (16:04→22:00)
[2021-09-11 16:56] LABS: Glucose,Whole Blood 201 mg/dL (75-99)
--- NOTE | 2021-09-11 17:10 | P.PN ---
Subjective This is a pleasant 66 years old male with left lung cancer with metastases evidence of metastasis to the lung, liver and bone presents with respiratory distress secondary to covert infection with superimposed bacterial infection most likely suspected post obstructive pneumonia and is being followed closely by pulmonary and infectious disease team as well as was oncology team, he is currently covered with Zosyn, dexamethasone, vitamin C, D and zinc, normal saline at 75 mL/h, also he is on home dose of Eliquis at 5 mg. He is anemic with hemoglobin coming down slightly 7.9 direct 7.1. His vitamin D was low also has been replaced. His moderately hypoxic requiring 6 L of oxygen to keep saturation around 93%. His glucose was 71-140 this morning however patient is not eating due to his debilitation and severe medical condition and confusion, therefore we going to stop his glipizide 10 mg twice daily. He was on Percocet at home and he looks anxious and agitated here in view of his confusion was going to put him on morphine 4 mg for pain management Oncology recommended MRI of the brain as patient looks of generalized weakness but slightly more on the right side, no facial division, however because of his severe medical condition and confusion and agitation is not ordered for now WBC 12.7, d-dimer 3.9, LDH 440, C-reactive protein 8.4. Pro-calcitonin is 5.2 which is significantly elevated. 09/11/2021 Patient little bit more awake today and he knows in the abscess itself and he answers some questions appropriately however he still confused and go back to sleep right away. His oxygen status is also deteriorated and his requirement increased to 10 L/m today. Distal somewhat tachypneic. No labs from today However MRI showing metastasis with left sided 5 mm lesions of the left internal capsule and posterior caudate nucleus with surrounding vasogenic edema and also evolving infarct Which coincides with patient's right-sided weakness. Discussed problem list with the patient, he has limited capacity to understand his illnesses. As per staff hospice team which were consulted by pulmonary/critical care team yesterday have already contacted the son and he is on the way home and back to [place] from [place] with plan most likely to go home with hospice. In the meantime continue with steroids, vitamins, Eliquis, Zosyn and discontinue IV fluids Objective - Vital Signs Vital signs: Vital Signs Temp 97.5 F L 09/11/21 10:00 Pulse 53 L 09/11/21 14:00 Resp 14 09/11/21 14:00 BP 116/69 09/11/21 14:00 Pulse Ox 88 L 09/11/21 14:00 Intake & Output 09/10/21 09/11/21 09/11/21 18:59 06:59 18:59 Other: Voiding Method Diaper Diaper Urinal Incontinent Incontinent Diaper Incontinent # Voids 4 2 - Exam -GENERAL: The patient is awake but confused, with tachypnea and mild respiratory distress distress. Well developed, well nourished. HEENT: Pupils are round and equally reacting to light. EOMI. No scleral icterus. No conjunctival pallor. Normocephalic, atraumatic. No pharyngeal erythema. No thyromegaly. CARDIOVASCULAR: S1 and S2 present. No murmurs, rubs, or gallops. -PULMONARY: Chest is clear to auscultation, bilateral crepitation ABDOMEN: Soft, nontender, nondistended, normoactive bowel sounds. No palpable organomegaly. MUSCULOSKELETAL: No joint swelling or deformity. EXTREMITIES: No cyanosis, clubbing, or pedal edema. -NEUROLOGICAL: Exam is limited by patient condition and altered mental status, however cranial nerves intact. He has generalized weakness but more on the right side. Meningeal signs are absent SKIN: No rashes. no petechiae. - Labs CBC & Chem 7: 09/10/21 04:04 09/10/21 04:04 Labs: Abnormal Lab Results - Last 24 Hours (Table) 09/10/21 09/10/21 09/11/21 Range/Units 17:13 20:14 12:01 POC Glucose (mg/dL) 172 H 175 H 281 H (75-99) mg/dL 09/11/21 Range/Units 16:54 POC Glucose (mg/dL) 201 H (75-99) mg/dL Microbiology - Last 24 Hours (Table) 09/08/21 12:21 Blood Culture - Preliminary Blood No Growth after 72 hours 09/08/21 12:21 Blood Culture - Preliminary Blood No Growth after 72 hours 09/07/21 10:23 Blood Culture - Preliminary Blood No Growth after 96 hours Assessment and Plan Assessment: Bilateral Covid pneumonia Lung cancer is on the left lung with postobstructive pneumonia and metastasis to the lung, liver and bone Brain metastasis with possible evolving infarct and vasogenic edema Altered mental status secondary to brain metastases and Metabolic encephalopathy Diabetes mellitus with hyperglycemia Anemia Vitamin D deficiency Acute hypoxic respiratory failure Increased inflammatory markers Plan: A pleasant 66 years old male who presents with lung cancer, postobstructive pneumonia and bilateral covid pneumonia Continue with dexamethasone, increased frequency Continue with vitamin C, vitamin D and zinc Pulmonary consult Continue Zosyn Continue with gentle hydration Continue with the [facility] H[facility] team has already been contacted and they talked to the son and the planned for him is to go home with hospice per note Hold glipizide and continue with insulin sliding scale Labs and medication were reviewed.. Continue same treatment. Continue with symptomatic treatment. Resume home medication. Monitor lytes and vitals. DVT and GI prophylaxis. Further recommendationsas per clinical course of the patient DVT prophylaxis: Eliquis GI Prophylaxis: Ppi Prognosis is guarded and
[2021-09-11 20:31] LABS: Glucose,Whole Blood 342 mg/dL (75-99)
[2021-09-12] MEDS: PIPERACILLIN-TAZOBACTAM 3.375 GM in SODIUM CHLORIDE 0.9% 100 ML IVPB SCH ×3 (00:33→17:30)
[2021-09-12] MEDS: DEXAMETHASONE SOD PHOSPHATE 4 MG/ML 1 ML VIAL IVP SCH ×4 (03:42→21:09)
[2021-09-12] MEDS: MORPHINE SULFATE 4 MG/ML SYRINGE IVP PRN ×2 (03:42→11:36)
--- NOTE | 2021-09-12 05:24 | PN ---
PROGRESS NOTE DATE OF SERVICE: 09/11/2021 REASON FOR FOLLOWUP: Pneumonia. INTERVAL HISTORY: Patient is afebrile. The patient is breathing slightly comfortably. He is more awake and alert today. The patient denies any chest pain. No worsening cough or sputum production. No abdominal pain or diarrhea. PHYSICAL EXAMINATION: Blood pressure is 143/83 with a pulse of 109. Temperature of 98.3. He is 98% on 8 L nasal cannula. General description is an elderly male up in the chair in no distress. Respiratory system: Unlabored breathing, decreased intensity of breath sounds. No wheeze. Heart S1, S2. Regular rate and rhythm. Abdomen soft, no tenderness. LABORATORY DATA: No new labs have been obtained today. DIAGNOSTIC IMPRESSION AND PLAN: Patient with pneumonia concern for possible with a component of Covid 19 infection. The patient is covered with Dexamethasone, zinc and ascorbic acid along with Zosyn and monitor clinical course closely. Try to obtain a sputum to narrow down his antibiotics and continue supportive care. MMODL / IJN: [id number] /
[2021-09-12] MEDS: LOSARTAN 50 MG TAB PO SCH (07:42)
[2021-09-12] MEDS: CHOLECALCIFEROL 125 MCG (5000 IU) TABLET PO SCH (07:42)
[2021-09-12] MEDS: NICOTINE 21MG/24HR PATCH TRANSDERM SCH (07:42)
[2021-09-12] MEDS: CLOPIDOGREL 75 MG TAB PO SCH (07:43)
[2021-09-12] MEDS: THIAMINE 100 MG TAB PO SCH (07:43)
[2021-09-12] MEDS: hydrALAZINE HCL 50 MG TAB PO SCH ×2 (07:43→21:09)
[2021-09-12] MEDS: PANTOPRAZOLE 40 MG TABLET PO SCH (07:43)
[2021-09-12] MEDS: ZINC SULFATE 220 MG CAP PO SCH (07:43)
[2021-09-12] MEDS: ASCORBIC ACID 500 MG TAB PO SCH (07:43)
[2021-09-12] MEDS: BACLOFEN 10 MG TAB PO SCH ×3 (07:43→21:09)
[2021-09-12] MEDS: APIXABAN 5 MG TAB PO SCH ×2 (07:43→21:09)
[2021-09-12] MEDS: ATORVASTATIN 20 MG TAB PO SCH (07:43)
[2021-09-12] MEDS: POTASSIUM CHLORIDE ER 20 MEQ TAB.ER PO SCH (07:44)
[2021-09-12] MEDS: INSULIN ASPART (NovoLOG) 100 UNIT/ML VIAL SQ SCH ×4 (07:44→21:10)
[2021-09-12 07:45] LABS: Glucose,Whole Blood 164 mg/dL (75-99)
[2021-09-12] MEDS: SOTALOL 120 MG TAB PO SCH ×2 (07:46→21:09)
[2021-09-12] MEDS: DILTIAZEM CD 180 MG CAP.ER.24H PO SCH (07:46)
[2021-09-12 11:52] LABS: Glucose,Whole Blood 374 mg/dL (75-99)
[2021-09-12] MEDS: QUEtiapine 25 MG TAB PO PRN (16:03)
[2021-09-12 16:44] LABS: Glucose,Whole Blood 257 mg/dL (75-99)
--- NOTE | 2021-09-12 20:18 | P.PN ---
Subjective This is a pleasant 66 years old male with left lung cancer with metastases evidence of metastasis to the lung, liver and bone presents with respiratory distress secondary to covert infection with superimposed bacterial infection most likely suspected post obstructive pneumonia and is being followed closely by pulmonary and infectious disease team as well as was oncology team, he is currently covered with Zosyn, dexamethasone, vitamin C, D and zinc, normal saline at 75 mL/h, also he is on home dose of Eliquis at 5 mg. He is anemic with hemoglobin coming down slightly 7.9 direct 7.1. His vitamin D was low also has been replaced. His moderately hypoxic requiring 6 L of oxygen to keep saturation around 93%. His glucose was 71-140 this morning however patient is not eating due to his debilitation and severe medical condition and confusion, therefore we going to stop his glipizide 10 mg twice daily. He was on Percocet at home and he looks anxious and agitated here in view of his confusion was going to put him on morphine 4 mg for pain management Oncology recommended MRI of the brain as patient looks of generalized weakness but slightly more on the right side, no facial division, however because of his severe medical condition and confusion and agitation is not ordered for now WBC 12.7, d-dimer 3.9, LDH 440, C-reactive protein 8.4. Pro-calcitonin is 5.2 which is significantly elevated. 09/11/2021 Patient little bit more awake today and he knows in the abscess itself and he answers some questions appropriately however he still confused and go back to sleep right away. His oxygen status is also deteriorated and his requirement increased to 10 L/m today. Distal somewhat tachypneic. No labs from today However MRI showing metastasis with left sided 5 mm lesions of the left internal capsule and posterior caudate nucleus with surrounding vasogenic edema and also evolving infarct Which coincides with patient's right-sided weakness. Discussed problem list with the patient, he has limited capacity to understand his illnesses. As per staff hospice team which were consulted by pulmonary/critical care team yesterday have already contacted the son and he is on the way home and back to [place] from [place] with plan most likely to go home with hospice. In the meantime continue with steroids, vitamins, Eliquis, Zosyn and discontinue IV fluids 09/12/2021 Patient today is awake and alert but very tired, very dyspneic secondary to his covert pneumonia and is currently oxygen requirement worsened to 2 L/m from 5 L 2 days ago. He feels generally weak with right-sided mildly worse than the left side, for example he Then Both Knees and He Can Raise Both Arms above His Head. He Is More Lethargic, Mildly Confused. No Headache. Does Not Look in Pain. No Chest Pain or Abdominal Pain. He Is Hemodynamically Stable Other Than Severe Hypoxia. Glucose 200-300 MRI Showing Metastatic Disease with Positive Genetic Edema and Evolving Infarct However His Prognosis Is Extremely Poor Given His History of Lung Cancer with B rain Metastasis It's Incurable per Hematology Oncology Recommendation. Hospice Care Recommended by Both Pulmonary and Oncology Service, Hospice Team Contacted the Son Mr. Field Who Is on His Way from [place] Back to [place], Expected to Arrive Tonight. We Will Discuss the Plan with Him Tomorrow Most Likely Patient Will Go Home with Hospice. Currently He Is Kept on Dexamethasone 6 Mg Every 4 Hours. He Is Also on Eliquis, Multiple Vitamins, Zosyn,. While the Muscle and Was Stopped Due To His Brain Edema Objective - Vital Signs Vital signs: Vital Signs Temp 96.3 F L 09/12/21 10:00 Pulse 56 L 09/12/21 10:00 Resp 20 09/12/21 10:00 BP 121/79 09/12/21 10:00 Pulse Ox 88 L 09/12/21 10:00 Intake & Output 09/11/21 09/12/21 09/12/21 18:59 06:59 18:59 Intake Total 540 Output Total 50 Balance 540 -50 Intake: Oral 540 Output: Urine 50 Other: Voiding Method Urinal Urinal Urinal Diaper Diaper Diaper Incontinent Incontinent Incontinent # Voids 3 5 - Exam -GENERAL: The patient is awake but confused, with tachypnea and mild respiratory distress distress. Well developed, well nourished. HEENT: Pupils are round and equally reacting to light. EOMI. No scleral icterus. No conjunctival pallor. Normocephalic, atraumatic. No pharyngeal erythema. No thyromegaly. CARDIOVASCULAR: S1 and S2 present. No murmurs, rubs, or gallops. -PULMONARY: Chest is clear to auscultation, bilateral crepitation ABDOMEN: Soft, nontender, nondistended, normoactive bowel sounds. No palpable organomegaly. MUSCULOSKELETAL: No joint swelling or deformity. EXTREMITIES: No cyanosis, clubbing, or pedal edema. -NEUROLOGICAL: Exam is limited by patient condition and altered mental status, however cranial nerves intact. He has generalized weakness but more on the right side. Meningeal signs are absent SKIN: No rashes. no petechiae. - Labs CBC & Chem 7: 09/10/21 04:04 09/10/21 04:04 Labs: Abnormal Lab Results - Last 24 Hours (Table) 09/11/21 09/11/21 09/12/21 Range/Units 16:54 20:30 07:41 POC Glucose (mg/dL) 201 H 342 H 164 H (75-99) mg/dL 09/12/21 Range/Units 11:51 POC Glucose (mg/dL) 374 H (75-99) mg/dL Microbiology - Last 24 Hours (Table) 09/07/21 10:23 Blood Culture - Preliminary Blood No Growth after 120 hours 09/08/21 12:21 Blood Culture - Preliminary Blood No Growth after 72 hours 09/08/21 12:21 Blood Culture - Preliminary Blood No Growth after 72 hours Assessment and Plan Assessment: Bilateral Covid pneumonia Lung cancer is on the left lung with postobstructive pneumonia and metastasis to the lung, liver and bone Brain metastasis with possible evolving infarct and vasogenic edema Altered mental status secondary to brain metastases and Metabolic encephalopathy Diabetes mellitus with hyperglycemia Anemia Vitamin D deficiency Acute hypoxic respiratory failure Increased inflammatory markers Plan: A pleasant 66 years old male who presents with lung cancer, postobstructive pneumonia and bilateral covid pneumonia Continue with dexamethasone, increased frequency Continue with vitamin C, vitamin D and zinc Pulmonary consult Continue Zosyn Continue with gentle hydration Continue with the [facility] Hospice team has already been contacted and they talked to the son and the planned for him is to go home with hospice Hold glipizide and continue with insulin sliding scale Labs and medication were reviewed.. Continue same treatment. Continue with symptomatic treatment. Resume home medication. Monitor lytes and vitals. DVT and GI prophylaxis. Further recommendationsas per clinical course of the patient DVT prophylaxis: Eliquis GI Prophylaxis: Ppi Prognosis is extremely poor
[2021-09-12 20:46] LABS: Glucose,Whole Blood 186 mg/dL (75-99)
--- NOTE | 2021-09-12 22:40 | PN ---
PROGRESS NOTE DATE OF SERVICE: 09/12/2021 REASON FOR FOLLOWUP: Pneumonia. INTERVAL HISTORY: The patient is afebrile. The patient remains to be on high-flow oxygen. The patient was slightly lethargic and sleepy. Unable to provide any history. No vomiting, diarrhea or any other changes reported by nursing staff. PHYSICAL EXAMINATION: Blood pressure 149/73 with a pulse of 64, temperature is 97.4. He is 98% on high-flow oxygen. General description is an elderly male lying in bed in no distress. Respiratory system: Unlabored breathing, decreased intensity in breath sounds. No wheeze. Heart S1, S2. Regular rate and rhythm. Abdomen soft. LABS: No CBC was done today. Blood culture has been negative. DIAGNOSTIC IMPRESSION AND PLAN: Patient admitted to the hospital with shortness of breath and cough with concern for pneumonia. Did have positive Covid test with concern for possible postobstructive pneumonia in this patient who is currently covered on Eliquis, dexamethasone and Zosyn that will be continued for now. Try to obtain a sputum to narrow down antibiotics and monitor clinical course closely. MMODL / IJN: [id number] /
[2021-09-13] MEDS: PIPERACILLIN-TAZOBACTAM 3.375 GM in SODIUM CHLORIDE 0.9% 100 ML IVPB SCH ×2 (00:11→09:15)
[2021-09-13] MEDS: HYDROcodone/APAP 5-325MG 1 EACH TAB PO PRN ×3 (00:33→21:06)
[2021-09-13] MEDS: DEXAMETHASONE SOD PHOSPHATE 4 MG/ML 1 ML VIAL IVP SCH ×2 (03:05→09:27)
[2021-09-13 07:18] LABS: Glucose,Whole Blood 209 mg/dL (75-99)
[2021-09-13] MEDS: DILTIAZEM CD 180 MG CAP.ER.24H PO SCH (09:25)
[2021-09-13] MEDS: ASCORBIC ACID 500 MG TAB PO SCH (09:25)
[2021-09-13] MEDS: CHOLECALCIFEROL 125 MCG (5000 IU) TABLET PO SCH (09:25)
[2021-09-13] MEDS: SOTALOL 120 MG TAB PO SCH ×2 (09:25→21:13)
[2021-09-13] MEDS: CLOPIDOGREL 75 MG TAB PO SCH (09:26)
[2021-09-13] MEDS: LOSARTAN 50 MG TAB PO SCH (09:26)
[2021-09-13] MEDS: APIXABAN 5 MG TAB PO SCH ×2 (09:26→21:05)
[2021-09-13] MEDS: POTASSIUM CHLORIDE ER 20 MEQ TAB.ER PO SCH (09:26)
[2021-09-13] MEDS: hydrALAZINE HCL 50 MG TAB PO SCH ×2 (09:26→21:05)
[2021-09-13] MEDS: BACLOFEN 10 MG TAB PO SCH ×3 (09:26→22:58)
[2021-09-13] MEDS: PANTOPRAZOLE 40 MG TABLET PO SCH (09:27)
[2021-09-13] MEDS: THIAMINE 100 MG TAB PO SCH (09:27)
[2021-09-13] MEDS: ZINC SULFATE 220 MG CAP PO SCH (09:27)
[2021-09-13] MEDS: ATORVASTATIN 20 MG TAB PO SCH (09:27)
[2021-09-13] MEDS: NICOTINE 21MG/24HR PATCH TRANSDERM SCH (09:28)
[2021-09-13] MEDS: INSULIN ASPART (NovoLOG) 100 UNIT/ML VIAL SQ SCH ×4 (09:33→21:11)
[2021-09-13] MEDS: QUEtiapine 25 MG TAB PO PRN (12:05)
[2021-09-13 12:16] LABS: Glucose,Whole Blood 280 mg/dL (75-99)
[2021-09-13] MEDS ORDERED: DEXAMETHASONE SOD PHOSPHATE 4 MG/ML 1 ML VIAL PO SCH (13:00)
[2021-09-13 13:02] VITALS: BMI 25.5
[2021-09-13 16:55] LABS: Glucose,Whole Blood 351 mg/dL (75-99)
[2021-09-13] MEDS: dexAMETHasone 4 MG TAB PO SCH ×2 (16:58→22:59)
--- NOTE | 2021-09-13 20:22 | PN ---
PROGRESS NOTE DATE OF SERVICE: 09/13/2021 REASON FOR FOLLOWUP: Pneumonia. INTERVAL HISTORY: The patient is afebrile. The patient is slightly more awake and alert today; still requiring 10 L high-flow nasal cannula oxygen. The patient denies having any chest pain. No worsening cough or respiratory symptoms. No vomiting. No choking on the food reported by nursing staff. No abdominal pain or diarrhea. PHYSICAL EXAMINATION: Blood pressure 114/73 with a pulse of 53, temperature 97.2. He is 95% on 10 L high- flow oxygen. General description is an elderly male lying in bed in no distress. Respiratory system: Unlabored breathing, decreased intensity of breath sounds. No wheeze. Heart S1, S2. Regular rate and rhythm. Abdomen soft, no tenderness. LABS: No new labs have been obtained today. DIAGNOSTIC IMPRESSION AND PLAN: Patient admitted to hospital with shortness of breath and cough, multifactorial in this patient with evidence of pneumonia. Did have positive COVID test. Concern for possible interstitial pneumonia. The patient's antibiotic has been switched to Augmentin; to continue along with zinc, multivitamin and Eliquis. Prognosis remains guarded. MMODL / IJN: [id number] /
[2021-09-13 20:45] LABS: Glucose,Whole Blood 213 mg/dL (75-99)
[2021-09-13] MEDS: AMOXIC-POT CLAV 875-125MG 1 EACH TAB PO SCH (21:05)
--- NOTE | 2021-09-14 00:02 | P.PN ---
Subjective This is a pleasant 66 years old male with left lung cancer with metastases evidence of metastasis to the lung, liver and bone presents with respiratory distress secondary to covert infection with superimposed bacterial infection most likely suspected post obstructive pneumonia and is being followed closely by pulmonary and infectious disease team as well as was oncology team, he is currently covered with Zosyn, dexamethasone, vitamin C, D and zinc, normal saline at 75 mL/h, also he is on home dose of Eliquis at 5 mg. He is anemic with hemoglobin coming down slightly 7.9 direct 7.1. His vitamin D was low also has been replaced. His moderately hypoxic requiring 6 L of oxygen to keep saturation around 93%. His glucose was 71-140 this morning however patient is not eating due to his debilitation and severe medical condition and confusion, therefore we going to stop his glipizide 10 mg twice daily. He was on Percocet at home and he looks anxious and agitated here in view of his confusion was going to put him on morphine 4 mg for pain management Oncology recommended MRI of the brain as patient looks of generalized weakness but slightly more on the right side, no facial division, however because of his severe medical condition and confusion and agitation is not ordered for now WBC 12.7, d-dimer 3.9, LDH 440, C-reactive protein 8.4. Pro-calcitonin is 5.2 which is significantly elevated. 09/11/2021 Patient little bit more awake today and he knows in the abscess itself and he answers some questions appropriately however he still confused and go back to sleep right away. His oxygen status is also deteriorated and his requirement increased to 10 L/m today. Distal somewhat tachypneic. No labs from today However MRI showing metastasis with left sided 5 mm lesions of the left internal capsule and posterior caudate nucleus with surrounding vasogenic edema and also evolving infarct Which coincides with patient's right-sided weakness. Discussed problem list with the patient, he has limited capacity to understand his illnesses. As per staff hospice team which were consulted by pulmonary/critical care team yesterday have already contacted the son and he is on the way home and back to [place] from [place] with plan most likely to go home with hospice. In the meantime continue with steroids, vitamins, Eliquis, Zosyn and discontinue IV fluids 09/12/2021 Patient today is awake and alert but very tired, very dyspneic secondary to his covert pneumonia and is currently oxygen requirement worsened to 2 L/m from 5 L 2 days ago. He feels generally weak with right-sided mildly worse than the left side, for example he Then Both Knees and He Can Raise Both Arms above His Head. He Is More Lethargic, Mildly Confused. No Headache. Does Not Look in Pain. No Chest Pain or Abdominal Pain. He Is Hemodynamically Stable Other Than Severe Hypoxia. Glucose 200-300 MRI Showing Metastatic Disease with Positive Genetic Edema and Evolving Infarct However His Prognosis Is Extremely Poor Given His History of Lung Cancer with B rain Metastasis It's Incurable per Hematology Oncology Recommendation. Hospice Care Recommended by Both Pulmonary and Oncology Service, Hospice Team Contacted the Son Mr. Field Who Is on His Way from [place] Back to [place], Expected to Arrive Tonight. We Will Discuss the Plan with Him Tomorrow Most Likely Patient Will Go Home with Hospice. Currently He Is Kept on Dexamethasone 6 Mg Every 4 Hours. He Is Also on Eliquis, Multiple Vitamins, Zosyn,. While the Muscle and Was Stopped Due To His Brain Edema 09/13/2021 Patient is awake and alert, answers questions appropriately but mildly confused, he is more lethargic and weak. He shows understanding to the surrounding. Ample to tolerate diet but his appetite is poor, he ate 2 meals at 25-100%. Blood pressure is a stable but his hypoxia is worsening and his oxygen requirement up to 15 L/m. Secondary to severe covid bilateral pneumonia and his lung cancer and gram-negative pneumonia. On the top of that he has metastatic lung cancer to the brain which is incurable, therefore hospice care is recommended, today Felipa from hospice team . his son in the hospital, not as previously thought Stent Only for a Week and Then He'll Go Back to [place] Therefore a Patient Will Need to Go to Hospice Home, therefore different hospice group was consulted. Therefore his medication was switched to oral like Augmentin and oral dexamethasone Also patient refused IV line today Objective - Vital Signs Vital signs: Vital Signs Temp 97.4 F L 09/13/21 06:00 Pulse 49 L 09/13/21 06:00 Resp 18 09/13/21 06:00 BP 147/81 09/13/21 06:00 Pulse Ox 90 L 09/13/21 06:00 Intake & Output 01/10/22 01/11/22 01/11/22 18:59 06:59 18:59 Other: Voiding Method Urinal Urinal Diaper Diaper Incontinent Incontinent # Voids 2 3 - Exam -GENERAL: The patient is awake but confused, with tachypnea and mild respiratory distress distress. Well developed, well nourished. HEENT: Pupils are round and equally reacting to light. EOMI. No scleral icterus. No conjunctival pallor. Normocephalic, atraumatic. No pharyngeal erythema. No thyromegaly. CARDIOVASCULAR: S1 and S2 present. No murmurs, rubs, or gallops. -PULMONARY: Chest is clear to auscultation, bilateral crepitation ABDOMEN: Soft, nontender, nondistended, normoactive bowel sounds. No palpable organomegaly. MUSCULOSKELETAL: No joint swelling or deformity. EXTREMITIES: No cyanosis, clubbing, or pedal edema. -NEUROLOGICAL: Exam is limited by patient condition and altered mental status, however cranial nerves intact. He has generalized weakness but more on the right side. Meningeal signs are absent SKIN: No rashes. no petechiae. - Labs CBC & Chem 7: 09/10/21 04:04 09/10/21 04:04 Labs: Abnormal Lab Results - Last 24 Hours (Table) 09/12/21 09/12/21 09/12/21 Range/Units 11:51 16:42 20:45 POC Glucose (mg/dL) 374 H 257 H 186 H (75-99) mg/dL 09/13/21 Range/Units 07:16 POC Glucose (mg/dL) 209 H (75-99) mg/dL Microbiology - Last 24 Hours (Table) 09/08/21 12:21 Blood Culture - Preliminary Blood No Growth after 96 hours 09/08/21 12:21 Blood Culture - Preliminary Blood No Growth after 96 hours 09/07/21 10:23 Blood Culture - Preliminary Blood No Growth after 120 hours Assessment and Plan Assessment: Bilateral Covid pneumonia Lung cancer is on the left lung with postobstructive pneumonia and metastasis to the lung, liver and bone Brain metastasis with possible evolving infarct and vasogenic edema Altered mental status secondary to brain metastases and Metabolic encephalopathy Diabetes mellitus with hyperglycemia Anemia Vitamin D deficiency Acute hypoxic respiratory failure Increased inflammatory markers Plan: A pleasant 66 years old male who presents with lung cancer, postobstructive pneumonia and bilateral covid pneumonia Continue with hospice consult for advance end-stage metastatic lung cancer Continue with dexamethasone, increased frequency Continue with vitamin C, vitamin D and zinc Pulmonary consult Continue Zosyn and tented to Augmentin because of lack of IV access Continue with gentle hydration Continue with the [facility] Hospice team has already been contacted and they talked to the son and the planned for him is to go home with hospice Hold glipizide and continue with insulin sliding scale Labs and medication were reviewed.. Continue same treatment. Continue with symptomatic treatment. Resume home medication. Monitor lytes and vitals. DVT and GI prophylaxis. Further recommendations as per clinical course of the patient DVT prophylaxis: Eliquis GI Prophylaxis: Ppi Prognosis is extremely poor.
[2021-09-14] MEDS: dexAMETHasone 4 MG TAB PO SCH ×3 (05:54→17:34)
[2021-09-14 08:40] LABS: Glucose,Whole Blood 241 mg/dL (75-99)
[2021-09-14] MEDS: NICOTINE 21MG/24HR PATCH TRANSDERM SCH (08:46)
[2021-09-14] MEDS: INSULIN ASPART (NovoLOG) 100 UNIT/ML VIAL SQ SCH ×4 (08:46→20:40)
[2021-09-14] MEDS: ASCORBIC ACID 500 MG TAB PO SCH (08:47)
[2021-09-14] MEDS: PANTOPRAZOLE 40 MG TABLET PO SCH (08:47)
[2021-09-14] MEDS: ZINC SULFATE 220 MG CAP PO SCH (08:47)
[2021-09-14] MEDS: THIAMINE 100 MG TAB PO SCH (08:47)
[2021-09-14] MEDS: BACLOFEN 10 MG TAB PO SCH ×3 (08:47→20:40)
[2021-09-14] MEDS: CLOPIDOGREL 75 MG TAB PO SCH (08:47)
[2021-09-14] MEDS: CHOLECALCIFEROL 125 MCG (5000 IU) TABLET PO SCH (08:47)
[2021-09-14] MEDS: APIXABAN 5 MG TAB PO SCH ×2 (08:47→20:40)
[2021-09-14] MEDS: POTASSIUM CHLORIDE ER 20 MEQ TAB.ER PO SCH (08:47)
[2021-09-14] MEDS: hydrALAZINE HCL 50 MG TAB PO SCH ×2 (08:47→20:41)
[2021-09-14] MEDS: LOSARTAN 50 MG TAB PO SCH (08:47)
[2021-09-14] MEDS: ATORVASTATIN 20 MG TAB PO SCH (08:47)
[2021-09-14] MEDS: SOTALOL 120 MG TAB PO SCH ×2 (08:48→20:40)
[2021-09-14] MEDS: DILTIAZEM CD 180 MG CAP.ER.24H PO SCH (08:48)
[2021-09-14] MEDS: AMOXIC-POT CLAV 875-125MG 1 EACH TAB PO SCH ×2 (08:48→20:40)
[2021-09-14] MEDS: HYDROcodone/APAP 5-325MG 1 EACH TAB PO PRN ×2 (08:49→17:34)
[2021-09-14 11:40] LABS: Glucose,Whole Blood 206 mg/dL (75-99)
[2021-09-14 16:37] LABS: Glucose,Whole Blood 256 mg/dL (75-99)
[2021-09-14 19:52] LABS: Glucose,Whole Blood 236 mg/dL (75-99)
--- NOTE | 2021-09-14 22:57 | PN ---
PROGRESS NOTE DATE OF SERVICE: 09/14/2021 REASON FOR FOLLOWUP: Pneumonia. INTERVAL HISTORY: The patient is afebrile. The patient is breathing comfortably; however, still requiring a non-rebreather to maintain his saturations. The patient denies having chest pain or worsening cough or sputum production. No abdominal pain or diarrhea. PHYSICAL EXAMINATION: Blood pressure 109/69 with a pulse of 70, temperature 98.3. He is 97% on 15 L high- flow oxygen. General description is an elderly male lying in bed in no distress. Respiratory system: Unlabored breathing, decreased intensity of breath sounds. No wheeze. Heart S1, S2. Regular rate and rhythm. Abdomen soft, no tenderness. LABS: No new labs have been obtained today. DIAGNOSTIC IMPRESSION AND PLAN: Patient with acute respiratory failure which is multifactorial in this patient who did have postobstructive pneumonia and has been covered with Augmentin, Eliquis and ascorbic acid. Overall prognosis remains guarded. Monitor his clinical course closely. MMODL / IJN: [id number] /
--- NOTE | 2021-09-15 00:25 | P.PN ---
Subjective This is a pleasant 66 years old male with left lung cancer with metastases evidence of metastasis to the lung, liver and bone presents with respiratory distress secondary to covert infection with superimposed bacterial infection most likely suspected post obstructive pneumonia and is being followed closely by pulmonary and infectious disease team as well as was oncology team, he is currently covered with Zosyn, dexamethasone, vitamin C, D and zinc, normal saline at 75 mL/h, also he is on home dose of Eliquis at 5 mg. He is anemic with hemoglobin coming down slightly 7.9 direct 7.1. His vitamin D was low also has been replaced. His moderately hypoxic requiring 6 L of oxygen to keep saturation around 93%. His glucose was 71-140 this morning however patient is not eating due to his debilitation and severe medical condition and confusion, therefore we going to stop his glipizide 10 mg twice daily. He was on Percocet at home and he looks anxious and agitated here in view of his confusion was going to put him on morphine 4 mg for pain management Oncology recommended MRI of the brain as patient looks of generalized weakness but slightly more on the right side, no facial division, however because of his severe medical condition and confusion and agitation is not ordered for now WBC 12.7, d-dimer 3.9, LDH 440, C-reactive protein 8.4. Pro-calcitonin is 5.2 which is significantly elevated. 09/11/2021 Patient little bit more awake today and he knows in the abscess itself and he answers some questions appropriately however he still confused and go back to sleep right away. His oxygen status is also deteriorated and his requirement increased to 10 L/m today. Distal somewhat tachypneic. No labs from today However MRI showing metastasis with left sided 5 mm lesions of the left internal capsule and posterior caudate nucleus with surrounding vasogenic edema and also evolving infarct Which coincides with patient's right-sided weakness. Discussed problem list with the patient, he has limited capacity to understand his illnesses. As per staff hospice team which were consulted by pulmonary/critical care team yesterday have already contacted the son and he is on the way home and [place] with plan most likely to go home with hospice. In the meantime continue with steroids, vitamins, Eliquis, Zosyn and discontinue IV fluids 09/12/2021 Patient today is awake and alert but very tired, very dyspneic secondary to his covert pneumonia and is currently oxygen requirement worsened to 2 L/m from 5 L 2 days ago. He feels generally weak with right-sided mildly worse than the left side, for example he Then Both Knees and He Can Raise Both Arms above His Head. He Is More Lethargic, Mildly Confused. No Headache. Does Not Look in Pain. No Chest Pain or Abdominal Pain. He Is Hemodynamically Stable Other Than Severe Hypoxia. Glucose 200-300 MRI Showing Metastatic Disease with Positive Genetic Edema and Evolving Infarct However His Prognosis Is Extremely Poor Given His History of Lung Cancer with B rain Metastasis It's Incurable per Hematology Oncology Recommendation. Hospice Care Recommended by Both Pulmonary and Oncology Service, Hospice Team Contacted the Son Mr. Field Who Is on His Way from [place] Back to [place], Expected to Arrive Tonight. We Will Discuss the Plan with Him Tomorrow Most Likely Patient Will Go Home with Hospice. Currently He Is Kept on Dexamethasone 6 Mg Every 4 Hours. He Is Also on Eliquis, Multiple Vitamins, Zosyn,. While the Muscle and Was Stopped Due To His Brain Edema 09/13/2021 Patient is awake and alert, answers questions appropriately but mildly confused, he is more lethargic and weak. He shows understanding to the surrounding. Ample to tolerate diet but his appetite is poor, he ate 2 meals at 25-100%. Blood pressure is a stable but his hypoxia is worsening and his oxygen requirement up to 15 L/m. Secondary to severe covid bilateral pneumonia and his lung cancer and gram-negative pneumonia. On the top of that he has metastatic lung cancer to the brain which is incurable, therefore hospice care is recommended, today Felipa from hospice team . his son in the hospital, not as previously thought Stent Only for a Week and Then He'll Go Back to [place] Therefore a Patient Will Need to Go to Hospice Home, therefore different hospice group was consulted. Therefore his medication was switched to oral like Augmentin and oral dexamethasone Also patient refused IV line today 09/14/2021 Patient remains awake and alert, he follows commands and he answers questions appropriately however he looks in respiratory distress due to hypoxia, he is on high dose of oxygen at 15 L/m via nasal cannula. And also via facemask. Rest of Vitas looks stable. Of course history. His sugar slightly elevated. He continued on dexamethasone, Augmentin, Eliquis. Also multiple vitamins I discussed the case with transplant case manager, patient is pending management for his hospice home prior to discharge, we are waiting from hospice nurse to contact us prior to discharge. Please refer to transplant case manager note for more details Objective - Vital Signs Vital signs: Vital Signs Temp 97.7 F 09/14/21 10:00 Pulse 56 L 09/14/21 10:00 Resp 18 09/14/21 10:00 BP 130/77 09/14/21 10:00 Pulse Ox 95 09/14/21 10:00 Intake & Output 09/13/21 09/14/21 09/14/21 18:59 06:59 18:59 Weight 76.204 kg Other: Voiding Method Incontinent Incontinent # Voids 4 1 - Exam -GENERAL: The patient is awake but confused, with tachypnea and mild respiratory distress distress. Well developed, well nourished. HEENT: Pupils are round and equally reacting to light. EOMI. No scleral icterus. No conjunctival pallor. Normocephalic, atraumatic. No pharyngeal erythema. No thyromegaly. CARDIOVASCULAR: S1 and S2 present. No murmurs, rubs, or gallops. -PULMONARY: Chest is clear to auscultation, bilateral crepitation ABDOMEN: Soft, nontender, nondistended, normoactive bowel sounds. No palpable organomegaly. MUSCULOSKELETAL: No joint swelling or deformity. EXTREMITIES: No cyanosis, clubbing, or pedal edema. -NEUROLOGICAL: Exam is limited by patient condition and altered mental status, however cranial nerves intact. He has generalized weakness but more on the right side. Meningeal signs are absent SKIN: No rashes. no petechiae. - Labs CBC & Chem 7: 09/10/21 04:04 09/10/21 04:04 Labs: Abnormal Lab Results - Last 24 Hours (Table) 09/13/21 09/13/21 09/13/21 Range/Units 12:14 16:54 20:43 POC Glucose (mg/dL) 280 H 351 H 213 H (75-99) mg/dL 09/14/21 Range/Units 08:38 POC Glucose (mg/dL) 241 H (75-99) mg/dL Microbiology - Last 24 Hours (Table) 09/08/21 12:21 Blood Culture - Preliminary Blood No Growth after 120 hours 09/08/21 12:21 Blood Culture - Preliminary Blood No Growth after 120 hours 09/07/21 10:23 Blood Culture - Final Blood No Growth after 144 hours Assessment and Plan Assessment: Bilateral Covid pneumonia Lung cancer is on the left lung with postobstructive pneumonia and metastasis to the lung, liver and bone Brain metastasis with possible evolving infarct and vasogenic edema Altered mental status secondary to brain metastases and Metabolic encephalopathy Diabetes mellitus with hyperglycemia Anemia Vitamin D deficiency Acute hypoxic respiratory failure Increased inflammatory markers Plan: A pleasant 66 years old male who presents with lung cancer, postobstructive pneumonia and bilateral covid pneumonia Continue with hospice consult for advance end-stage metastatic lung cancer Continue with dexamethasone, increased frequency Continue with vitamin C, vitamin D and zinc Pulmonary consult Continue Zosyn and tented to Augmentin because of lack of IV access Continue with gentle hydration Continue with the [facility] Hospice team has already been contacted and they talked to the son and the planned for him is to go home with hospice Hold glipizide and continue with insulin sliding scale Labs and medication were reviewed.. Continue same treatment. Continue with symptomatic treatment. Resume home medication. Monitor lytes and vitals. DVT and GI prophylaxis. Further recommendations as per clinical course of the patient DVT prophylaxis: Eliquis GI Prophylaxis: Ppi Prognosis is extremely poor. Possible discharge tomorrow
[2021-09-15] MEDS: dexAMETHasone 4 MG TAB PO SCH ×3 (00:39→14:35)
[2021-09-15] MEDS: HYDROcodone/APAP 5-325MG 1 EACH TAB PO PRN ×2 (01:52→08:13)
[2021-09-15 07:42] LABS: Glucose,Whole Blood 266 mg/dL (75-99)
[2021-09-15] MEDS: NICOTINE 21MG/24HR PATCH TRANSDERM SCH (08:13)
[2021-09-15] MEDS: ASCORBIC ACID 500 MG TAB PO SCH (08:13)
[2021-09-15] MEDS: CLOPIDOGREL 75 MG TAB PO SCH (08:14)
[2021-09-15] MEDS: ZINC SULFATE 220 MG CAP PO SCH (08:14)
[2021-09-15] MEDS: PANTOPRAZOLE 40 MG TABLET PO SCH (08:14)
[2021-09-15] MEDS: BACLOFEN 10 MG TAB PO SCH (08:14)
[2021-09-15] MEDS: ATORVASTATIN 20 MG TAB PO SCH (08:14)
[2021-09-15] MEDS: THIAMINE 100 MG TAB PO SCH (08:14)
[2021-09-15] MEDS: hydrALAZINE HCL 50 MG TAB PO SCH (08:14)
[2021-09-15] MEDS: LOSARTAN 50 MG TAB PO SCH (08:14)
[2021-09-15] MEDS: APIXABAN 5 MG TAB PO SCH (08:14)
[2021-09-15] MEDS: CHOLECALCIFEROL 125 MCG (5000 IU) TABLET PO SCH (08:14)
[2021-09-15] MEDS: POTASSIUM CHLORIDE ER 20 MEQ TAB.ER PO SCH (08:14)
[2021-09-15] MEDS: DILTIAZEM CD 180 MG CAP.ER.24H PO SCH (08:15)
[2021-09-15] MEDS: AMOXIC-POT CLAV 875-125MG 1 EACH TAB PO SCH (08:15)
[2021-09-15] MEDS: SOTALOL 120 MG TAB PO SCH (08:15)
[2021-09-15] MEDS: INSULIN ASPART (NovoLOG) 100 UNIT/ML VIAL SQ SCH ×2 (08:15→14:35)
[2021-09-15] MEDS ORDERED: guaiFENesin 600 MG TABLET.ER PO SCH (10:00)
[2021-09-15] MEDS ORDERED: MORPHINE CONC SOLN 10mg/0.5mL ORAL SYRG PO PRN (11:40)
[2021-09-15] MEDS ORDERED: LORazepam ORAL CONC 60 MG/30 ML BOTTLE PO PRN (11:49)
[2021-09-15] MEDS ORDERED: LORazepam 2 MG/ML INJ IV PRN (14:25)
[2021-09-15] MEDS ORDERED: SCOPOLAMINE 1.5MG/72HR PATCH TRANSDERM SCH (14:30)
[2021-09-15] MEDS: MORPHINE SULFATE (100 MG/2 ML) 100 MG in SODIUM CHLORIDE 0.9% 100 ML IV SCH (15:11)
--- NOTE | 2021-09-15 15:52 | PN ---
PROGRESS NOTE DATE OF SERVICE: 09/15/2021 REASON FOR FOLLOWUP: Pneumonia. INTERVAL HISTORY: The patient was seen on rounds this morning. The patient has been afebrile. Has been breathing comfortably. However, he is still requiring a non-rebreather to maintain his saturations. The patient any chest pain or worsening cough. No abdominal pain or diarrhea. PHYSICAL EXAMINATION: Blood pressure 157/77, pulse of 70, temperature 98.6. He is 93% on 15 L high-flow oxygen. General description is an elderly male lying in bed in no distress. Respiratory system: Unlabored breathing, decreased intensity of breath sounds. No wheeze. Heart S1, S2. Regular rate and rhythm. Abdomen soft, no tenderness. Extremities with no edema of the feet. LABS: No new labs have been obtained today. DIAGNOSTIC IMPRESSION AND PLAN: Patient with acute respiratory failure in this patient with a component of COVID-19 pneumonia with concern for pneumonia with underlying malignancy and poor prognosis. Family hospice may be appropriate. Antibiotic can be safely discontinued. at the bedside. His questions were answered. MMODL / IJN: [id number] /
[2021-09-15 18:23] VITALS: BP 129/78; RESP 19; TEMP 97.6
--- NOTE | 2021-09-15 19:46 | P.PN ---
Subjective This is a pleasant 66 years old male with left lung cancer with metastases evidence of metastasis to the lung, liver and bone presents with respiratory distress secondary to covert infection with superimposed bacterial infection most likely suspected post obstructive pneumonia and is being followed closely by pulmonary and infectious disease team as well as was oncology team, he is currently covered with Zosyn, dexamethasone, vitamin C, D and zinc, normal saline at 75 mL/h, also he is on home dose of Eliquis at 5 mg. He is anemic with hemoglobin coming down slightly 7.9 direct 7.1. His vitamin D was low also has been replaced. His moderately hypoxic requiring 6 L of oxygen to keep saturation around 93%. His glucose was 71-140 this morning however patient is not eating due to his debilitation and severe medical condition and confusion, therefore we going to stop his glipizide 10 mg twice daily. He was on Percocet at home and he looks anxious and agitated here in view of his confusion was going to put him on morphine 4 mg for pain management Oncology recommended MRI of the brain as patient looks of generalized weakness but slightly more on the right side, no facial division, however because of his severe medical condition and confusion and agitation is not ordered for now WBC 12.7, d-dimer 3.9, LDH 440, C-reactive protein 8.4. Pro-calcitonin is 5.2 which is significantly elevated. 09/11/2021 Patient little bit more awake today and he knows in the abscess itself and he answers some questions appropriately however he still confused and go back to sleep right away. His oxygen status is also deteriorated and his requirement increased to 10 L/m today. Distal somewhat tachypneic. No labs from today However MRI showing metastasis with left sided 5 mm lesions of the left internal capsule and posterior caudate nucleus with surrounding vasogenic edema and also evolving infarct Which coincides with patient's right-sided weakness. Discussed problem list with the patient, he has limited capacity to understand his illnesses. As per staff hospice team which were consulted by pulmonary/critical care team yesterday have already contacted the son and he is on the way home and back to [place] from [place] with plan most likely to go home with hospice. In the meantime continue with steroids, vitamins, Eliquis, Zosyn and discontinue IV fluids 09/12/2021 Patient today is awake and alert but very tired, very dyspneic secondary to his covert pneumonia and is currently oxygen requirement worsened to 2 L/m from 5 L 2 days ago. He feels generally weak with right-sided mildly worse than the left side, for example he Then Both Knees and He Can Raise Both Arms above His Head. He Is More Lethargic, Mildly Confused. No Headache. Does Not Look in Pain. No Chest Pain or Abdominal Pain. He Is Hemodynamically Stable Other Than Severe Hypoxia. Glucose 200-300 MRI Showing Metastatic Disease with Positive Genetic Edema and Evolving Infarct However His Prognosis Is Extremely Poor Given His History of Lung Cancer with B rain Metastasis It's Incurable per Hematology Oncology Recommendation. Hospice Care Recommended by Both Pulmonary and Oncology Service, Hospice Team Contacted the Son Mr. Field Who Is on His Way from [place] Back to [place], Expected to Arrive Tonight. We Will Discuss the Plan with Him Tomorrow Most Likely Patient Will Go Home with Hospice. Currently He Is Kept on Dexamethasone 6 Mg Every 4 Hours. He Is Also on Eliquis, Multiple Vitamins, Zosyn,. While the Muscle and Was Stopped Due To His Brain Edema 09/13/2021 Patient is awake and alert, answers questions appropriately but mildly confused, he is more lethargic and weak. He shows understanding to the surrounding. Ample to tolerate diet but his appetite is poor, he ate 2 meals at 25-100%. Blood pressure is a stable but his hypoxia is worsening and his oxygen requirement up to 15 L/m. Secondary to severe covid bilateral pneumonia and his lung cancer and gram-negative pneumonia. On the top of that he has metastatic lung cancer to the brain which is incurable, therefore hospice care is recommended, today Felipa from hospice team . his son in the hospital, not as previously thought Stent Only for a Week and Then He'll Go Back to [place] Therefore a Patient Will Need to Go to Hospice Home, therefore different hospice group was consulted. Therefore his medication was switched to oral like Augmentin and oral dexamethasone Also patient refused IV line today 09/14/2021 Patient remains awake and alert, he follows commands and he answers questions appropriately however he looks in respiratory distress due to hypoxia, he is on high dose of oxygen at 15 L/m via nasal cannula. And also via facemask. Rest of Vitas looks stable. Of course history. His sugar slightly elevated. He continued on dexamethasone, Augmentin, Eliquis. Also multiple vitamins I discussed the case with supervisor case loading, patient is pending management for his hospice home prior to discharge, we are waiting from hospice nurse to contact us prior to discharge. Please refer to supervisor case loading note for more details 09/15/2021 This morning patient was very tired he was requested medical was somewhat still awake and oriented and partially confused. He wasn't some respiratory distress and more oxygen provided for him however later on he remains to desaturate while he was on 15 L of oxygen via nasal cannula besides 50 L/m of oxygen via nonrebreather. His oxygen and it dropped to 76% and later on to 84%. The plan originally was for the patient to go home with hospice and possible home hospice percent. They drawn with dropping off his oxygen saturation son decided for comfort care, I calledat bedside to try to talk to Retract Was Also at Bedside but He Told the Nurses He Does Not Need to Talk to Me. I Discussed the Case with [facility] Nurse at [phone] and she confirmed to me that the son signed papers for hospice on comfort care. Because of this and to make patient more comfortable with start him on morphine drip, scopolamine and Ativan as needed and discontinued all unnecessary medication while The patient on ox ygen for comfort care. A has no code. His prognosis is extremely poor prognosis. His end-stage met astatic disease. Objective - Vital Signs Vital signs: Vital Signs Temp 96.8 F L 09/15/21 05:52 Pulse 50 L 09/15/21 05:52 Resp 17 09/15/21 05:52 BP 112/65 09/15/21 05:52 Pulse Ox 93 L 09/15/21 05:52 Intake & Output 09/14/21 09/15/21 09/15/21 18:59 06:59 18:59 Output Total 600 Balance -600 Output: Urine 600 Other: Voiding Method Incontinent Incontinent - Exam -GENERAL: The patient is awake but confused, very tired, with tachypnea and mild respiratory distress distress. His this has improved with morphine HEENT: Pupils are round and equally reacting to light. EOMI. No scleral icterus. No conjunctival pallor. Normocephalic, atraumatic. No pharyngeal erythema. No thyromegaly. CARDIOVASCULAR: S1 and S2 present. No murmurs, rubs, or gallops. -PULMONARY: Chest is clear to auscultation, bilateral crepitation ABDOMEN: Soft, nontender, nondistended, normoactive bowel sounds. No palpable organomegaly. MUSCULOSKELETAL: No joint swelling or deformity. EXTREMITIES: No cyanosis, clubbing, or pedal edema. -NEUROLOGICAL: Exam is limited by patient condition and altered mental status, however cranial nerves intact. He has generalized weakness but more on the right side. Meningeal signs are absent SKIN: No rashes. no petechiae. - Labs CBC & Chem 7: 09/10/21 04:04 09/10/21 04:04 Labs: Abnormal Lab Results - Last 24 Hours (Table) 09/14/21 09/14/21 09/14/21 Range/Units 11:38 16:36 19:50 POC Glucose (mg/dL) 206 H 256 H 236 H (75-99) mg/dL 09/15/21 Range/Units 07:40 POC Glucose (mg/dL) 266 H (75-99) mg/dL Microbiology - Last 24 Hours (Table) 09/08/21 12:21 Blood Culture - Final Blood No Growth after 144 hours 09/08/21 12:21 Blood Culture - Final Blood No Growth after 144 hours Assessment and Plan Assessment: End of life care, comfort care Bilateral Covid pneumonia Lung cancer is on the left lung with postobstructive pneumonia and metastasis to the lung, liver and bone Brain metastasis with possible evolving infarct and vasogenic edema Altered mental status secondary to brain metastases and Metabolic encephalopathy Diabetes mellitus with hyperglycemia Anemia Vitamin D deficiency Acute hypoxic respiratory failure Increased inflammatory markers Plan: A pleasant 66 years old male who presents with lung cancer, postobstructive pneumonia and bilateral covid pneumonia Continue with hospice consult for advance end-stage metastatic lung cancer Discussed with the hospice nurse Brunilda patient is now under hospice care and comfort care. Emir Was Signed Papers and She Confirmed to Me. This Is Intelligible and His Prognosis Is Extremely Poor and the Best Think We Can Help the Patient for Now Is to Make Him Comfortable. As He Is Endstage Recruitable Continue with morphine drip, Ativan as needed, scopolamine. Continue with oxygen for comfort care Prognosis is extremely poor. Possible discharge tomorrow
[2021-09-16 04:57] VITALS: PULSE 76
[2021-09-16] MEDS ORDERED: bisacodyL 10 MG SUPP RECTAL SCH (09:00)
--- NOTE | 2021-09-16 10:24 | CDI ---
Documentation Clarification Form Date: 09/16/2021 10:00:25 AM From: Tracy Mendes RN, CCDS Admit Date: 09/06/2021 03:29:00 PM Patient Name: Gil Jason Visit Number: [id number] Discharge Date: ATTENTION: The Clinical Documentation Specialists (CDI) and [facility] Coding Staff appreciate your assistance in clarifying documentation. Please respond to the clarification below the line at the bottom and electronically sign. The CDI & [facility] Coding staff will review the response and follow-up if needed. Please note: Queries are made part of the Legal Health Record. If you have any questions, please contact the author of this message via ITS. Dr. Azael Shepherd Atrial Fibrillation is documented in past medial history with ongoing treatment. Additional clarification regarding the type of atrial fibrillation is requested. History/Risk Factors: Atrial Fibrillation, Cancer, COPD, Diabetes mellitus, Hypertension Clinical Indicators: 66-year-old male with covid 19, has past medical history of atrial fibrillation. 09/06 EKG Normal sinus rhythm right bundle branch block T wave abnormality, vent rate 63. 09/08 EKG: Sinus bradycardia right bundle branch block vent rate 52. Treatment Eliquis 5 MG PO BID (09/06-) Please clarify the type of atrial fibrillation, if known: [ ] Chronic [ ] Permanent [ ] Paroxysmal [ ] Persistent [ ] Other, please specify [ ] Unable to determine (Template Last Revised: January 2021) Paroxysmal MTDD
--- NOTE | 2021-09-16 12:21 | P.PN ---
Subjective This is a pleasant 66 years old male with left lung cancer with metastases evidence of metastasis to the lung, liver and bone presents with respiratory distress secondary to covert infection with superimposed bacterial infection most likely suspected post obstructive pneumonia and is being followed closely by pulmonary and infectious disease team as well as was oncology team, he is currently covered with Zosyn, dexamethasone, vitamin C, D and zinc, normal saline at 75 mL/h, also he is on home dose of Eliquis at 5 mg. He is anemic with hemoglobin coming down slightly 7.9 direct 7.1. His vitamin D was low also has been replaced. His moderately hypoxic requiring 6 L of oxygen to keep saturation around 93%. His glucose was 71-140 this morning however patient is not eating due to his debilitation and severe medical condition and confusion, therefore we going to stop his glipizide 10 mg twice daily. He was on Percocet at home and he looks anxious and agitated here in view of his confusion was going to put him on morphine 4 mg for pain management Oncology recommended MRI of the brain as patient looks of generalized weakness but slightly more on the right side, no facial division, however because of his severe medical condition and confusion and agitation is not ordered for now WBC 12.7, d-dimer 3.9, LDH 440, C-reactive protein 8.4. Pro-calcitonin is 5.2 which is significantly elevated. 09/11/2021 Patient little bit more awake today and he knows in the abscess itself and he answers some questions appropriately however he still confused and go back to sleep right away. His oxygen status is also deteriorated and his requirement increased to 10 L/m today. Distal somewhat tachypneic. No labs from today However MRI showing metastasis with left sided 5 mm lesions of the left internal capsule and posterior caudate nucleus with surrounding vasogenic edema and also evolving infarct Which coincides with patient's right-sided weakness. Discussed problem list with the patient, he has limited capacity to understand his illnesses. As per staff hospice team which were consulted by pulmonary/critical care team yesterday have already contacted the son and he is on the way home and back to [place] from [place] with plan most likely to go home with hospice. In the meantime continue with steroids, vitamins, Eliquis, Zosyn and discontinue IV fluids 09/12/2021 Patient today is awake and alert but very tired, very dyspneic secondary to his covert pneumonia and is currently oxygen requirement worsened to 2 L/m from 5 L 2 days ago. He feels generally weak with right-sided mildly worse than the left side, for example he Then Both Knees and He Can Raise Both Arms above His Head. He Is More Lethargic, Mildly Confused. No Headache. Does Not Look in Pain. No Chest Pain or Abdominal Pain. He Is Hemodynamically Stable Other Than Severe Hypoxia. Glucose 200-300 MRI Showing Metastatic Disease with Positive Genetic Edema and Evolving Infarct However His Prognosis Is Extremely Poor Given His History of Lung Cancer with B rain Metastasis It's Incurable per Hematology Oncology Recommendation. Hospice Care Recommended by Both Pulmonary and Oncology Service, Hospice Team Contacted the Son Mr. Field Who Is on His Way from [place] Back to [place], Expected to Arrive Tonight. We Will Discuss the Plan with Him Tomorrow Most Likely Patient Will Go Home with Hospice. Currently He Is Kept on Dexamethasone 6 Mg Every 4 Hours. He Is Also on Eliquis, Multiple Vitamins, Zosyn,. While the Muscle and Was Stopped Due To His Brain Edema 09/13/2021 Patient is awake and alert, answers questions appropriately but mildly confused, he is more lethargic and weak. He shows understanding to the surrounding. Ample to tolerate diet but his appetite is poor, he ate 2 meals at 25-100%. Blood pressure is a stable but his hypoxia is worsening and his oxygen requirement up to 15 L/m. Secondary to severe covid bilateral pneumonia and his lung cancer and gram-negative pneumonia. On the top of that he has metastatic lung cancer to the brain which is incurable, therefore hospice care is recommended, today Felipa from hospice team . his son in the hospital, not as previously thought Stent Only for a Week and Then He'll Go Back to [place] Therefore a Patient Will Need to Go to Hospice Home, therefore different hospice group was consulted. Therefore his medication was switched to oral like Augmentin and oral dexamethasone Also patient refused IV line today 09/14/2021 Patient remains awake and alert, he follows commands and he answers questions appropriately however he looks in respiratory distress due to hypoxia, he is on high dose of oxygen at 15 L/m via nasal cannula. And also via facemask. Rest of Vitas looks stable. Of course history. His sugar slightly elevated. He continued on dexamethasone, Augmentin, Eliquis. Also multiple vitamins I discussed the case with case folder, patient is pending management for his hospice home prior to discharge, we are waiting from hospice nurse to contact us prior to discharge. Please refer to case folder note for more details 09/15/2021 This morning patient was very tired he was requested medical was somewhat still awake and oriented and partially confused. He wasn't some respiratory distress and more oxygen provided for him however later on he remains to desaturate while he was on 15 L of oxygen via nasal cannula besides 50 L/m of oxygen via nonrebreather. His oxygen and it dropped to 76% and later on to 84%. The plan originally was for the patient to go home with hospice and possible home hospice percent. They drawn with dropping off his oxygen saturation son decided for comfort care, I calledat bedside to try to talk to Retract Was Also at Bedside but He Told the Nurses He Does Not Need to Talk to Me. I Discussed the Case with [facility] at [phone] and she confirmed to me that the son signed papers for hospice on comfort care. Because of this and to make patient more comfortable with start him on morphine drip, scopolamine and Ativan as needed and discontinued all unnecessary medication while The patient on ox ygen for comfort care. A has no code. His prognosis is extremely poor prognosis. His end-stage met astatic disease. 09/16/2021 Yesterday patient was made hospice on comfort care measures per son request which looks appropriate given his end-stage advanced disease. Today he is Sleepy, on morphine drip, he looks comfortable not in distress Family friend at bedside and she thinks he is comfortable as well Objective - Vital Signs Vital signs: Vital Signs Temp 97.6 F 09/15/21 18:00 Pulse 76 09/16/21 02:00 Resp 19 09/15/21 18:00 BP 129/78 09/15/21 18:00 Pulse Ox 91 L 09/16/21 02:00 Intake & Output 09/15/21 09/16/21 09/16/21 18:59 06:59 18:59 Intake Total 541.071 42.33 Balance 541.071 42.33 Intake: Intake, IV Titration 1.071 42.33 Amount Morphine Sulfate (100 mg/ 1.071 42.33 2 ml) 100 mg In Sodium Chloride 0.9% 100 ml @ Titrate IV .Q0M [facility] Rx#: [id number] Oral 540 Other: Voiding Method Incontinent Incontinent # Voids 8 2 - Exam -GENERAL: The patient is awake but sleepy, status post verbal stimuli, looks comfortable HEENT: Pupils are round and equally reacting to light. EOMI. No scleral icterus. No conjunctival pallor. Normocephalic, atraumatic. No pharyngeal erythema. No thyromegaly. CARDIOVASCULAR: S1 and S2 present. No murmurs, rubs, or gallops. -PULMONARY: Chest is clear to auscultation, bilateral crepitation ABDOMEN: Soft, nontender, nondistended, normoactive bowel sounds. No palpable organomegaly. MUSCULOSKELETAL: No joint swelling or deformity. EXTREMITIES: No cyanosis, clubbing, or pedal edema. -NEUROLOGICAL: Exam is limited by patient condition and altered mental status, however cranial nerves intact. He has generalized weakness but more on the right side. Meningeal signs are absent SKIN: No rashes. no petechiae. - Labs CBC & Chem 7: 09/10/21 04:04 09/10/21 04:04 Assessment and Plan Assessment: End of life care, comfort care Bilateral Covid pneumonia Lung cancer is on the left lung with postobstructive pneumonia and metastasis to the lung, liver and bone Brain metastasis with possible evolving infarct and vasogenic edema Altered mental status secondary to brain metastases and Metabolic encephalopathy Diabetes mellitus with hyperglycemia Anemia Vitamin D deficiency Acute hypoxic respiratory failure Increased inflammatory markers Plan: A pleasant 66 years old male who presents with lung cancer, postobstructive pneumonia and bilateral covid pneumonia Continue with hospice consult for advance end-stage metastatic lung cancer Discussed with the hospice nurse Brunilda patient is now under hospice care and comfort care. Emir Was Signed Papers and She Confirmed to Me. Hospice consult Continue with morphine drip, Ativan as needed, scopolamine. Continue with oxygen for comfort care Prognosis is extremely poor.
[2021-09-16] MEDS: MORPHINE SULFATE (100 MG/2 ML) 100 MG in SODIUM CHLORIDE 0.9% 100 ML IV SCH (16:28)
== END 2021-09-16 18:50 | disposition expired | DRG 177 ==
LOC: EC 12:01 → 4SSUR 15:29
PROVIDERS: ADMIT Hospitalist; ATTEND Hospitalist
PROC: 05HD33Z Insertion of Infusion Device into Right Cephalic Vein, Percutaneous Approach (ICD-10-PCS; 2021-09-07 11:50)
PROC: 5A0955A Assistance with Respiratory Ventilation, Greater than 96 Consecutive Hours, High Flow/Velocity Cannula (ICD-10-PCS; principal; 2021-09-08)
PROC: 05HD33Z Insertion of Infusion Device into Right Cephalic Vein, Percutaneous Approach (ICD-10-PCS; 2021-09-09)
PROC: 05HC33Z Insertion of Infusion Device into Left Basilic Vein, Percutaneous Approach (ICD-10-PCS; 2021-09-15)
DX: U07.1 COVID-19 (principal); G93.41 Metabolic encephalopathy; J96.01 Acute respiratory failure with hypoxia; A41.89 Other specified sepsis; J12.82 Pneumonia due to coronavirus disease 2019; I63.81 Other cerebral infarction due to occlusion or stenosis of small artery; G93.6 Cerebral edema; J15.6 Pneumonia due to other Gram-negative bacteria; C79.51 Secondary malignant neoplasm of bone; C78.01 Secondary malignant neoplasm of right lung; E87.1 Hypo-osmolality and hyponatremia; L03.115 Cellulitis of right lower limb; C34.32 Malignant neoplasm of lower lobe, left bronchus or lung; C78.7 Secondary malignant neoplasm of liver and intrahepatic bile duct; C79.31 Secondary malignant neoplasm of brain; I11.0 Hypertensive heart disease with heart failure; I50.9 Heart failure, unspecified; I48.0 Paroxysmal atrial fibrillation; E11.65 Type 2 diabetes mellitus with hyperglycemia; D53.9 Nutritional anemia, unspecified; J43.9 Emphysema, unspecified; Z66 Do not resuscitate; Z51.5 Encounter for palliative care; G31.9 Degenerative disease of nervous system, unspecified; D72.810 Lymphocytopenia; E78.5 Hyperlipidemia, unspecified; I25.10 Atherosclerotic heart disease of native coronary artery without angina pectoris; K21.9 Gastro-esophageal reflux disease without esophagitis; F10.11 Alcohol abuse, in remission; M19.90 Unspecified osteoarthritis, unspecified site; R29.6 Repeated falls; D63.0 Anemia in neoplastic disease; E55.9 Vitamin D deficiency, unspecified; I45.4 Nonspecific intraventricular block; H70.92 Unspecified mastoiditis, left ear; R32 Unspecified urinary incontinence; Z53.20 Procedure and treatment not carried out because of patient's decision for unspecified reasons; F17.210 Nicotine dependence, cigarettes, uncomplicated; Z79.01 Long term (current) use of anticoagulants; Z79.02 Long term (current) use of antithrombotics/antiplatelets; Z79.84 Long term (current) use of oral hypoglycemic drugs; Z79.899 Other long term (current) drug therapy; Z60.2 Problems related to living alone; Z87.2 Personal history of diseases of the skin and subcutaneous tissue; Z87.19 Personal history of other diseases of the digestive system; Z92.3 Personal history of irradiation; Z95.5 Presence of coronary angioplasty implant and graft; Z92.21 Personal history of antineoplastic chemotherapy; Z98.890 Other specified postprocedural states; Z80.9 Family history of malignant neoplasm, unspecified
CPT/HCPCS: 36410; 36415; 70450; 70553; 71045; 71260; 71275; 74177; 76937; 80048; 80053; 80076; 81001; 82306; 82607; 82728; 82746; 82784; 83010; 83540; 83550; 83615; 83735; 83921; 84145; 85025; 85045; 85379; 86140; 87040; 87635; 93005; 99214; 99285